=== PATIENT | female | born 1930 | race Caucasian/White ===

== ENCOUNTER → 2017-10-01 | Outpatient (CLI) | payer MEDICARE, OTHER, MEDICAID | END | disposition home or self-care (01) | LOC: ECHO 10:36 | DX: I08.1 Rheumatic disorders of both mitral and tricuspid valves (principal); I25.10 Atherosclerotic heart disease of native coronary artery without angina pectoris | CPT/HCPCS: 93306 ==

== ENCOUNTER 2018-02-14 11:09 | Emergency (ER) | payer MEDICARE, OTHER ==
[2018-02-14 12:16] LABS: ADD MAN DIFF? NO
[2018-02-14 12:18] LABS: BILIRUBIN,URINE NEGATIVE (NEG); CLARITY,URINE CLEAR; COLOR,URINE YELLOW; GLUCOSE,URINE NEGATIVE (NEG); NITRITE,URINE NEGATIVE (NEG); PH,URINE 6.5; PROTEIN,URINE 30 mg/dL (NEG-TRACE); RBC,URINE 0 /HPF (0-2); SQUAMOUS EPITHELIAL CELL,UR MANY /LPF
[2018-02-14 12:19] LABS: BACTERIA,URINE MODERATE /HPF (0-FEW)
[2018-02-14 12:29] LABS: BASO % 1 % (0-3); EOS # 0.4 x10^3/uL (0.0-0.7); EOS % 5 % (0-3); HEMATOCRIT 39.3 % (36.0-47.0); LYMPH # 1.1 x10^3/uL (1.0-4.8); LYMPH % 14 % (24-48); MEAN CORPUSCULAR HEMOGLOBIN 30 pg (25-35); MEAN CORPUSCULAR HGB CONC 33 g/dL (31-37); MEAN CORPUSCULAR VOLUME 89 fL (79-100); MONO # 0.8 x10^3/uL (0.0-1.1); MONO % 10 % (0-9); NEUT # 5.6 x10^3uL (1.8-7.7); NEUT % 71 % (31-73); PLATELET COUNT 390 x10^3/uL (140-400); RED BLOOD COUNT 4.41 x10^6/uL (3.50-5.40); RED CELL DISTRIBUTION WIDTH 14.3 % (11.5-14.5); WHITE BLOOD COUNT 7.9 x10^3/uL (4.0-11.0)
[2018-02-14 12:30] LABS: ANION GAP 3 (6-14); BLOOD UREA NITROGEN 14 mg/dL (7-20); BUN/CREATININE RATIO 18 (6-20); CALCIUM 8.7 mg/dL (8.5-10.1); CARBON DIOXIDE 32 mmol/L (21-32); CHLORIDE 103 mmol/L (98-107); CREATININE 0.8 mg/dL (0.6-1.0); GFR 68.2; GLUCOSE 131 mg/dL (70-99); POTASSIUM 3.8 mmol/L (3.5-5.1); SODIUM 138 mmol/L (136-145)
[2018-02-14 12:37] LABS: ALBUMIN 3.6 g/dL (3.4-5.0); ALBUMIN/GLOBULIN RATIO 0.9 (1.0-1.7); ALK PHOS 77 U/L (46-116); ALT (SGPT) 15 U/L (14-59); AST (SGOT) 14 U/L (15-37); INR 1.8 (0.8-1.1); MAGNESIUM 2.1 mg/dL (1.8-2.4); PARTIAL THROMBOPLASTIN TIME 43 SEC (24-38); PROTHROMBIN TIME PATIENT 20.1 SEC (11.7-14.0); TOTAL BILIRUBIN 0.5 mg/dL (0.2-1.0); TOTAL PROTEIN 7.4 g/dL (6.4-8.2)
[2018-02-14 12:38] LABS: LACTIC ACID 0.9 mmol/L (0.4-2.0)
[2018-02-14 12:40] LABS: TROPONINI < 0.017 ng/mL (0.000-0.055)
[2018-02-14 13:20] LABS: NT-PRO BNP 2094 pg/mL (0-449)
[2018-02-14 13:20] LABS: CKMB MASS 1.5 ng/mL (0.0-3.6); CREATINE KINASE 73 U/L (26-192)
== END 2018-02-14 14:47 | disposition home or self-care (01) ==
LOC: ER 11:09
DX: R40.4 Transient alteration of awareness (principal); N39.0 Urinary tract infection, site not specified; R60.0 Localized edema; I25.10 Atherosclerotic heart disease of native coronary artery without angina pectoris; K21.9 Gastro-esophageal reflux disease without esophagitis; E78.00 Pure hypercholesterolemia, unspecified; I10 Essential (primary) hypertension; Z90.710 Acquired absence of both cervix and uterus; Z79.01 Long term (current) use of anticoagulants
CPT/HCPCS: 36415; 70450; 71045; 80053; 81001; 82553; 83605; 83735; 83880; 84484; 85025; 85610; 85730; 87040; 87086; 93005; 96365; 99285; 99285-25; J0690

== ENCOUNTER 2018-09-18 18:33 | Inpatient (IN) | payer MEDICARE, OTHER ==
[~2018-09-18] VITALS: Ht 160 cm; Wt 73.6 kg
[~2018-09-18 18:33] MED LIST: ACET325T9 PO; AMLO5TAB10 PO; ATEN100T PO; ATOR20TA58 PO; BISA-42 PO; BISA5TAB6 PO; CALC200T3 PO; CALC300T5 PO; CIPR250T30 PO; DOCU100C28 PO; ENOX40DI SQ; ERGO500027 PO; ESOM40CA PO; FURO40TA4 PO; HYDR1TAB10 PO; LACT1CAP41 PO; LOSA100T14 PO; MAG1TAB.11 PO; MELO7.5T29 PO; NITR100C62 PO; OMEP20CA10 PO; OMEP40CA5 PO; OXYB5TAB7 PO; POLY17PO29 PO; SENN1TAB62 PO; SIMV40TA3 PO; SOLI10TA2 PO; TRAZ-118 PO; VALS320T2 PO; WARF-31 PO; WARF3TAB50 PO; WARF3TAB54 PO; WARF6TAB49 PO; ZOLP5TAB5 PO
[2018-09-18] MEDS ORDERED: IPRATRPIUM/ALBUTEROL 0.5/2.5MG 3 ML NEBU. NEB ONE (18:45)
--- NOTE | 2018-09-18 18:50 | EKG ---
[facility] [address] [place] [address] Test Date: 2018-09-18 Test Time: 18:44:25 Pat Name: YULISA JAMES Department: Room: Gender: F Disability Rater: : [id number] Requested By: WILLIAN GARCIA Order Number: [id number] Reading MD: Greg Allen Measurements Intervals [place] Rate: 81 P: 63 KS: 186 QRS: 56 QRSD: 100 T: 49 QT: 384 QTc: 452 Interpretive Statements SINUS RHYTHM Electronically Signed On 09-24-2018 17:34:44 SECURITY SCREENER by Greg Allen
[2018-09-18] MEDS ORDERED: LABETALOL 20 MG/4 ML DISP.SYRIN. IVP ONE (19:00)
[2018-09-18 19:03] LABS: BASO # 0.1 x10^3/uL (0.0-0.2); BASO % 1 % (0-3); EOS # 0.1 x10^3/uL (0.0-0.7); EOS % 1 % (0-3); HEMATOCRIT 42.6 % (36.0-47.0); HEMOGLOBIN 13.9 g/dL (12.0-15.5); LYMPH # 1.1 x10^3/uL (1.0-4.8); LYMPH % 17 % (24-48); MEAN CORPUSCULAR HEMOGLOBIN 29 pg (25-35); MEAN CORPUSCULAR HGB CONC 33 g/dL (31-37); MEAN CORPUSCULAR VOLUME 89 fL (79-100); MONO % 15 % (0-9); NEUT # 4.3 x10^3uL (1.8-7.7); NEUT % 66 % (31-73); PLATELET COUNT 423 x10^3/uL (140-400); WHITE BLOOD COUNT 6.5 x10^3/uL (4.0-11.0)
--- NOTE | 2018-09-18 19:08 | PHYS DOC ---
Past Medical History Past Medical History: CAD, CVA, GERD, High Cholesterol, Hypertension, Stroke, TIA Additional Past Medical Histor: CVA WITH RESIDUAL LEFT SIDED WEAKNESS Past Surgical History: Coronary Bypass Surgery, Hysterectomy, Other Additional Past Surgical Histo: BLADDER TIED UP, OPEN HEART SX, MITRAL VALVE REPLACEMENT Alcohol Use: Occasionally Drug Use: None Adult General Chief Complaint Chief Complaint: SHORTNESS OF BREATH HPI HPI Patient is an 88-year-old female who presents with complaint of shortness of breath with oxygen saturation noted to be 74% in the waiting room. Patient's daughter indicates that patient has had a moist sounding cough for the last few days. She states that this morning patient's oxygen saturation was noted to be 89% and later this afternoon she states that patient appeared to be having more labored breathing and oxygen saturation was down to 85%. Patient having difficulty providing additional history due to reported shortness of breath. Family is not aware if patient has had a fever. Review of Systems Review of Systems Constitutional: Denies fever or chills [] Respiratory: Positive cough and shortness of breath [] Cardiovascular: No additional information not addressed in HPI [] GI: Denies vomiting or diarrhea [] Integument: Denies rash or skin lesions [] All other systems were reviewed and found to be within normal limits, except as documented in this note. Current Medications Current Medications Current Medications Medications (Trade) Dose Ordered Sig/Moon Start Time Stop Time Status Last Admin Dose Admin Albuterol/ Ipratropium (Duoneb) 3 ml 1X ONCE 09/18/18 18:45 09/18/18 18:51 DC 09/18/18 18:57 3 ML Furosemide (Lasix) 40 mg 1X ONCE 09/18/18 20:45 09/18/18 20:46 DC 09/18/18 20:45 40 MG Labetalol HCl (Normodyne Iv Push) 20 mg 1X ONCE 09/18/18 19:00 09/18/18 19:01 DC 09/18/18 19:00 20 MG Allergies Allergies Allergies Coded Allergies Type Severity Reaction Last Updated Verified No Known Drug Allergies 08/11/15 No Physical Exam Physical Exam Constitutional: Well developed, well nourished, in mild respiratory distress. [] HENT: Normocephalic, atraumatic, bilateral external ears normal, oropharynx moist, no oral exudates, nose normal. [] Eyes: PERRLA, EOMI, conjunctiva normal, no discharge. [] Neck: Normal range of motion, no tenderness, supple. [] Cardiovascular: Regular rate and rhythm [] Lungs & Thorax: Slightly reduced breath sounds are noted bilaterally with coarse rails in the lung bases, left greater than right to auscultation [] Abdomen: Bowel sounds normal, soft, no tenderness. [] Skin: Warm, dry, no erythema, no rash. [] Extremities: No tenderness, no cyanosis, no clubbing, ROM intact. [] Neurologic: Alert and oriented X 3, normal motor function, normal sensory function, no focal deficits noted. [] Current Patient Data Vital Signs Vital Signs Date Time Temp Pulse Resp B/P (MAP) Pulse Ox O2 Delivery O2 Flow Rate FiO2 09/18/18 20:00 72 16 180/88 (118) 97 Room Air 09/18/18 18:37 99.4 99.4 Lab Values Laboratory Tests Test 09/18/18 18:48 09/18/18 19:05 09/18/18 19:10 White Blood Count 6.5 x10^3/uL (4.0-11.0) Red Blood Count 4.80 x10^6/uL (3.50-5.40) Hemoglobin 13.9 g/dL (12.0-15.5) Hematocrit 42.6 % (36.0-47.0) Mean Corpuscular Volume 89 fL (79-100) Mean Corpuscular Hemoglobin 29 pg (25-35) Mean Corpuscular Hemoglobin Concent 33 g/dL (31-37) Red Cell Distribution Width 15.0 % (11.5-14.5) H Platelet Count 423 x10^3/uL (140-400) H Neutrophils (%) (Auto) 66 % (31-73) Lymphocytes (%) (Auto) 17 % (24-48) L Monocytes (%) (Auto) 15 % (0-9) H Eosinophils (%) (Auto) 1 % (0-3) Basophils (%) (Auto) 1 % (0-3) Neutrophils # (Auto) 4.3 x10^3uL (1.8-7.7) Lymphocytes # (Auto) 1.1 x10^3/uL (1.0-4.8) Monocytes # (Auto) 1.0 x10^3/uL (0.0-1.1) Eosinophils # (Auto) 0.1 x10^3/uL (0.0-0.7) Basophils # (Auto) 0.1 x10^3/uL (0.0-0.2) Sodium Level 142 mmol/L (136-145) Potassium Level 3.8 mmol/L (3.5-5.1) Chloride Level 100 mmol/L (98-107) Carbon Dioxide Level 34 mmol/L (21-32) H Anion Gap 8 (6-14) Blood Urea Nitrogen 28 mg/dL (7-20) H Creatinine 1.2 mg/dL (0.6-1.0) H Estimated GFR (Cockcroft-Gault) 42.6 BUN/Creatinine Ratio 23 (6-20) H Glucose Level 155 mg/dL (70-99) H Lactic Acid Level 1.3 mmol/L (0.4-2.0) Calcium Level 9.6 mg/dL (8.5-10.1) Total Bilirubin 0.4 mg/dL (0.2-1.0) Aspartate Amino Transferase (AST) 15 U/L (15-37) Alanine Aminotransferase (ALT) 14 U/L (14-59) Alkaline Phosphatase 88 U/L (46-116) Troponin I Quantitative < 0.017 ng/mL (0.000-0.055) GJ-Inb-Q-Type Natriuretic Peptide 7921 pg/mL (0-449) H Total Protein 8.8 g/dL (6.4-8.2) H Albumin 4.1 g/dL (3.4-5.0) Albumin/Globulin Ratio 0.9 (1.0-1.7) L Influenza Type A Antigen Negative (NEGATIVE) Influenza Type B Antigen Negative (NEGATIVE) Urine Collection Type U cath Urine Color Yellow Urine Clarity Clear Urine pH 5.5 Urine Specific [place] 1.025 Urine Protein 100 mg/dL (NEG-TRACE) Urine Glucose (UA) Negative mg/dL (NEG) Urine Ketones (Stick) 15 mg/dL (NEG) Urine Blood Negative (NEG) Urine Nitrite Negative (NEG) Urine Bilirubin Small (NEG) Urine Urobilinogen Dipstick 1.0 mg/dL (0.2 mg/dL) Urine Leukocyte Esterase Negative (NEG) Urine RBC Occ /HPF (0-2) Urine WBC 0 /HPF (0-4) Urine Squamous Epithelial Cells Occ /LPF Urine Amorphous Sediment Present /HPF Urine Bacteria 0 /HPF (0-FEW) Urine Hyaline Casts Moderate /HPF Urine Mucus Mod /LPF Laboratory Tests 09/18/18 18:48 Laboratory Tests 09/18/18 18:48 EKG EKG [] Interpretation Time: EKG demonstrates normal sinus rhythm with rate of 81. Radiology/Procedures Radiology/Procedures [] Course & Med Decision Making Course & Med Decision Making Pertinent Labs and Imaging studies reviewed. (See chart for details) [] Dragon Disclaimer Dragon Disclaimer This electronic medical record was generated, in whole or in part, using a voice recognition dictation system. Departure Departure Impression: Primary Impression: Hypertensive urgency Additional Impressions: CHF (congestive heart failure) Hypoxia Disposition: ADMITTED INPATIENT Admitting Physician: Kristie Ledbetter Condition: IMPROVED Referrals: MARIN ARCINIEGA MD (PCP) Problem Qualifiers Additional Impressions: CHF (congestive heart failure) Heart failure type: unspecified Heart failure chronicity: unspecified Qualified Codes: I50.9 - Heart failure, unspecified WILLIAN GARCIA Jr. DO Sep 18, 2018 19:08
[2018-09-18 19:13] LABS: CALCIUM 9.6 mg/dL (8.5-10.1); CREATININE 1.2 mg/dL (0.6-1.0); GFR 42.6; POTASSIUM 3.8 mmol/L (3.5-5.1)
[2018-09-18 19:19] LABS: ALBUMIN 4.1 g/dL (3.4-5.0); ALBUMIN/GLOBULIN RATIO 0.9 (1.0-1.7); TOTAL BILIRUBIN 0.4 mg/dL (0.2-1.0); TOTAL PROTEIN 8.8 g/dL (6.4-8.2)
[2018-09-18 19:24] LABS: BILIRUBIN,URINE SMALL (NEG); CLARITY,URINE CLEAR; COLOR,URINE YELLOW; NITRITE,URINE NEGATIVE (NEG); PH,URINE 5.5; PROTEIN,URINE 100 mg/dL (NEG-TRACE)
[2018-09-18 19:30] LABS: INFLUENZA A PATIENT NEGATIVE (NEGATIVE); INFLUENZA B PATIENT NEGATIVE (NEGATIVE)
[2018-09-18 19:32] LABS: AMORPHOUS SEDIMENT,UR PRESENT /HPF; BACTERIA,URINE 0 /HPF (0-FEW); HYALINE CASTS, URINE MODERATE /HPF; RBC,URINE OCC /HPF (0-2); SQUAMOUS EPITHELIAL CELL,UR OCC /LPF; WBC,URINE 0 /HPF (0-4)
[2018-09-18] MEDS ORDERED: FUROSEMIDE 40 MG/4 ML VIAL. IVP ONE (20:45)
--- NOTE | 2018-09-18 21:02 | PDOC1 ---
History and Physical Date of Admission Date of Admission DATE: 09/18/18 TIME: 21:00 Identification/Chief Complaint Chief Complaint short of breath Source Source: Caregiver, Chart review, Patient History of Present Illness History of Present Illness Ms. Martins is an 88-year-old female admit from ER with acute shortness of breath, respiratory distress and labored breathing over a few hours.. Was brought in hypoxic, and her Sa02 74% in the waiting room. and dropped before intervnetion. IV lasix givne, good improvement, marked hypertension on arrival, dropped markedly with IV labetalol. She is s/p CVA but does pretty well, her daughter assists with histoyr. . Patient's daughter indicates that patient has had a moist sounding cough for the last few days. She has been recently diagnosed with COPD by a CXR by the primary care at her [facility], no prior PFT. She has no chest pain, worse dyspnea and some cough, more moist in sound today. Past Medical History Cardiovascular: AFIB, HTN, Hyperlipidemia, Aortic stenosis Pulmonary: Bronchitis CENTRAL NERVOUS SYSTEM: CVA GI: GERD Musculoskeletal: Osteoarthritis Past Surgical History Past Surgical History: CABG, Other Family History Family History: Coronary Artery Disease, Hypertension Social History Smoke: No (second hand from for years) ALCOHOL: none Drugs: None Current Problem List Problem List Problems Medical Problems: (1) CHF (congestive heart failure) Status: Acute (2) Hypertensive urgency Status: Acute (3) Hypoxia Status: Acute Current Medications Current Medications Current Medications Albuterol/ Ipratropium (Duoneb) 3 ml 1X ONCE NEB Last administered on at 18:57; Start 09/18/18 at 18:45; Stop 09/18/18 at 18:51; Status DC Labetalol HCl (Normodyne Iv Push) 20 mg 1X ONCE IVP Last administered on at 19:00; Start 09/18/18 at 19:00; Stop 09/18/18 at 19:01; Status DC Furosemide (Lasix) 40 mg 1X ONCE IVP Last administered on 09/18/18at 20:45; Start 09/18/18 at 20:45; Stop 09/18/18 at 20:46; Status DC Active Scripts Active Reported Losartan Potassium 100 Mg Tablet 100 Mg PO DAILY Tums (Calcium Carbonate) 200 Mg Tab.chew 500 Mg PO BIDWMEALS Tums (Calcium Carbonate) 300 Mg Tab.chew 300 Mg PO Miralax (Polyethylene Glycol 3350) 17 Gm Powd.pack 1 Packet PO DAILY Senna Plus Tablet (Sennosides/Docusate Sodium) 1 Each Tablet 2 Each PO QHS Women's Laxative (Bisacodyl) 5 Mg Tablet 4 Tab PO UD Dulcolax (Bisacodyl) 5 Mg Tablet.dr 5 Mg PO PRN DAILY PRN Dulcolax (Bisacodyl) 5 Mg Tablet.dr 4 Tab PO ONCE Mintox Plus Tablet Chewable (Mag Hydrox/Al Hydrox/Simeth) 1 Each Tab.chew 2 Each PO Q3HRS PRN Docusate Sodium 100 Mg Capsule 1 Cap PO BID PRN Tylenol (Acetaminophen) 325 Mg Tablet 650 Mg PO Q6HRS PRN Atorvastatin Calcium 20 Mg Tablet 1 Tab PO HS Acidophilus-Pectin Capsule (Lactobacillus Acidophilus/Pect) 1 Each Capsule 1 Each PO BIDWMEALS Omeprazole 40 Mg Capsule.dr 1 Cap PO QHS Vitamin D2 (Ergocalciferol (Vitamin D2)) 50,000 Unit Capsule 1 Cap PO QSA Zolpidem Tartrate 5 Mg Tablet 5 Mg PO PRN QHS PRN Simvastatin 40 Mg Tablet 1 Tab PO QHS Oxybutynin Chloride 5 Mg Tablet 1 Tab PO BID Omeprazole 20 Mg Capsule.dr 1 Cap PO HS Warfarin Sodium 5 Mg Tablet 1 Tab PO DAILY Furosemide 40 Mg Tablet 40 Mg PO PRN DAILY PRN Trazodone Hcl 50 Mg Tablet 50 Mg PO HS Amlodipine Besylate 5 Mg Tablet 5 Mg PO DAILY Meloxicam 7.5 Mg Tablet 7.5 Mg PO DAILY Atenolol 100 Mg Tablet 100 Mg PO DAILY Diovan (Valsartan) 320 Mg Tablet 320 Mg PO DAILY Allergies Allergies: Coded Allergies: No Known Drug Allergies (Unverified , 08/11/15) ROS General: YES: Fatigue PSYCHOLOGICAL ROS: No: Anxiety, Behavioral Disorder, Concentration difficultie , Decreased libido, Depression, Disorientation, Hallucinations, Hostility, Irritablity, Memory difficulties, Mood Swings, Obsessive thoughts, Physical abuse, Sexual abuse, Sleep disturbances, Suicidal ideation, Other Eyes: No Blurry vision, No Decreased vision, No Double vision, No Dry eyes, No Excessive tearing, No Eye Pain, No Itchy Eyes, No Loss of vision, No Photophobia , No Scotomata, No Uses contacts, No Uses glasses, No Other HEENT: No: Heacaches, Visual Changes, Hearing change, Nasal congestion, Nasal discharge, Oral lesions, Sinus pain, Sore Throat, Epistaxis, Sneezing, Snoring, Tinnitus, Vertigo, Vocal changes, Other Respiratory: YES: Cough, Shortness of breath, SOB with excertion, Tachypnea Cardiovascular: No Chest Pain, No Palpitations, No Orthopnea, No Paroxysmal Noc. Dyspnea, No Edema, No Lt Headedness, No Other Gastrointestinal: No Nausea, No Vomiting, No Abdominal Pain, No Diarrhea, No Constipation, No Melena, No Hematochezia, No Other Genitourinary: No Dysuria, No Frequency, No Incontinence, No Hematuria, No Retention, No Discharge, No Urgency, No Pain, No Flank Pain, No Other, No , No , No , No , No , No , No Musculoskeletal: Yes Joint Stiffness, Yes Muscular Weakness; No Gait Disturbance, No Joint Pain, No Joint Swelling, No Muscle Pain, No Pain In:, No Swelling In:, No Other Neurological: No Behavorial Changes, No Bowel/Bladder ControlChng, No Confusion , No Dizziness, No Gait Disturbance, No Headaches, No Impaired Coord/balance, No Memory Loss, No Numbness/Tingling, No Seizures, No Speech Problems, No Tremors, No Visual Changes, No Weakness, No Other Skin: Yes Dry Skin; No Eczema, No Hair Changes, No Lumps, No Mole Changes, No Mottling, No Nail Changes, No Pruritus, No Rash, No Skin Lesion Changes, No Other, No Acne Physical Exam General: Alert, Oriented X3, Cooperative, mild distress (better) HEENT: Mucous membr. moist/pink Lungs: Other (very limited volume, dull bases, some rales) Heart: S1S2, RRR, no gallops, no murmurs Abdomen: Normal bowel sounds, Soft Extremities: No clubbing Skin: No rashes Neuro: Normal speech (slow speech), Normal tone, Sensation intact Psych/Mental Status: Mood NL Vitals Vitals Vital Signs Date Time Temp Pulse Resp B/P (MAP) Pulse Ox O2 Delivery O2 Flow Rate FiO2 09/18/18 20:00 72 16 180/88 (118) 97 Room Air 09/18/18 18:37 99.4 99.4 Labs Labs Laboratory Tests Test 09/18/18 18:48 09/18/18 19:05 09/18/18 19:10 White Blood Count 6.5 x10^3/uL (4.0-11.0) Red Blood Count 4.80 x10^6/uL (3.50-5.40) Hemoglobin 13.9 g/dL (12.0-15.5) Hematocrit 42.6 % (36.0-47.0) Mean Corpuscular Volume 89 fL (79-100) Mean Corpuscular Hemoglobin 29 pg (25-35) Mean Corpuscular Hemoglobin Concent 33 g/dL (31-37) Red Cell Distribution Width 15.0 % (11.5-14.5) Platelet Count 423 x10^3/uL (140-400) Neutrophils (%) (Auto) 66 % (31-73) Lymphocytes (%) (Auto) 17 % (24-48) Monocytes (%) (Auto) 15 % (0-9) Eosinophils (%) (Auto) 1 % (0-3) Basophils (%) (Auto) 1 % (0-3) Neutrophils # (Auto) 4.3 x10^3uL (1.8-7.7) Lymphocytes # (Auto) 1.1 x10^3/uL (1.0-4.8) Monocytes # (Auto) 1.0 x10^3/uL (0.0-1.1) Eosinophils # (Auto) 0.1 x10^3/uL (0.0-0.7) Basophils # (Auto) 0.1 x10^3/uL (0.0-0.2) D-Dimer (Marie) 0.57 ug/mlFEU (0.00-0.50) Sodium Level 142 mmol/L (136-145) Potassium Level 3.8 mmol/L (3.5-5.1) Chloride Level 100 mmol/L (98-107) Carbon Dioxide Level 34 mmol/L (21-32) Anion Gap 8 (6-14) Blood Urea Nitrogen 28 mg/dL (7-20) Creatinine 1.2 mg/dL (0.6-1.0) Estimated GFR (Cockcroft-Gault) 42.6 BUN/Creatinine Ratio 23 (6-20) Glucose Level 155 mg/dL (70-99) Lactic Acid Level 1.3 mmol/L (0.4-2.0) Calcium Level 9.6 mg/dL (8.5-10.1) Total Bilirubin 0.4 mg/dL (0.2-1.0) Aspartate Amino Transf (AST/SGOT) 15 U/L (15-37) Alanine Aminotransferase (ALT/SGPT) 14 U/L (14-59) Alkaline Phosphatase 88 U/L (46-116) Troponin I Quantitative < 0.017 ng/mL (0.000-0.055) YY-Udf-N-Type Natriuretic Peptide 7921 pg/mL (0-449) Total Protein 8.8 g/dL (6.4-8.2) Albumin 4.1 g/dL (3.4-5.0) Albumin/Globulin Ratio 0.9 (1.0-1.7) Influenza Type A Antigen Negative (NEGATIVE) Influenza Type B Antigen Negative (NEGATIVE) Urine Collection Type U cath Urine Color Yellow Urine Clarity Clear Urine pH 5.5 Urine Specific [place] 1.025 Urine Protein 100 mg/dL (NEG-TRACE) Urine Glucose (UA) Negative mg/dL (NEG) Urine Ketones (Stick) 15 mg/dL (NEG) Urine Blood Negative (NEG) Urine Nitrite Negative (NEG) Urine Bilirubin Small (NEG) Urine Urobilinogen Dipstick 1.0 mg/dL (0.2 mg/dL) Urine Leukocyte Esterase Negative (NEG) Urine RBC Occ /HPF (0-2) Urine WBC 0 /HPF (0-4) Urine Squamous Epithelial Cells Occ /LPF Urine Amorphous Sediment Present /HPF Urine Bacteria 0 /HPF (0-FEW) Urine Hyaline Casts Moderate /HPF Urine Mucus Mod /LPF Laboratory Tests Test 09/18/18 18:48 09/18/18 19:05 09/18/18 19:10 White Blood Count 6.5 x10^3/uL (4.0-11.0) Red Blood Count 4.80 x10^6/uL (3.50-5.40) Hemoglobin 13.9 g/dL (12.0-15.5) Hematocrit 42.6 % (36.0-47.0) Mean Corpuscular Volume 89 fL (79-100) Mean Corpuscular Hemoglobin 29 pg (25-35) Mean Corpuscular Hemoglobin Concent 33 g/dL (31-37) Red Cell Distribution Width 15.0 % (11.5-14.5) Platelet Count 423 x10^3/uL (140-400) Neutrophils (%) (Auto) 66 % (31-73) Lymphocytes (%) (Auto) 17 % (24-48) Monocytes (%) (Auto) 15 % (0-9) Eosinophils (%) (Auto) 1 % (0-3) Basophils (%) (Auto) 1 % (0-3) Neutrophils # (Auto) 4.3 x10^3uL (1.8-7.7) Lymphocytes # (Auto) 1.1 x10^3/uL (1.0-4.8) Monocytes # (Auto) 1.0 x10^3/uL (0.0-1.1) Eosinophils # (Auto) 0.1 x10^3/uL (0.0-0.7) Basophils # (Auto) 0.1 x10^3/uL (0.0-0.2) D-Dimer (Marie) 0.57 ug/mlFEU (0.00-0.50) Sodium Level 142 mmol/L (136-145) Potassium Level 3.8 mmol/L (3.5-5.1) Chloride Level 100 mmol/L (98-107) Carbon Dioxide Level 34 mmol/L (21-32) Anion Gap 8 (6-14) Blood Urea Nitrogen 28 mg/dL (7-20) Creatinine 1.2 mg/dL (0.6-1.0) Estimated GFR (Cockcroft-Gault) 42.6 BUN/Creatinine Ratio 23 (6-20) Glucose Level 155 mg/dL (70-99) Lactic Acid Level 1.3 mmol/L (0.4-2.0) Calcium Level 9.6 mg/dL (8.5-10.1) Total Bilirubin 0.4 mg/dL (0.2-1.0) Aspartate Amino Transf (AST/SGOT) 15 U/L (15-37) Alanine Aminotransferase (ALT/SGPT) 14 U/L (14-59) Alkaline Phosphatase 88 U/L (46-116) Troponin I Quantitative < 0.017 ng/mL (0.000-0.055) NR-Mqz-P-Type Natriuretic Peptide 7921 pg/mL (0-449) Total Protein 8.8 g/dL (6.4-8.2) Albumin 4.1 g/dL (3.4-5.0) Albumin/Globulin Ratio 0.9 (1.0-1.7) Influenza Type A Antigen Negative (NEGATIVE) Influenza Type B Antigen Negative (NEGATIVE) Urine Collection Type U cath Urine Color Yellow Urine Clarity Clear Urine pH 5.5 Urine Specific [place] 1.025 Urine Protein 100 mg/dL (NEG-TRACE) Urine Glucose (UA) Negative mg/dL (NEG) Urine Ketones (Stick) 15 mg/dL (NEG) Urine Blood Negative (NEG) Urine Nitrite Negative (NEG) Urine Bilirubin Small (NEG) Urine Urobilinogen Dipstick 1.0 mg/dL (0.2 mg/dL) Urine Leukocyte Esterase Negative (NEG) Urine RBC Occ /HPF (0-2) Urine WBC 0 /HPF (0-4) Urine Squamous Epithelial Cells Occ /LPF Urine Amorphous Sediment Present /HPF Urine Bacteria 0 /HPF (0-FEW) Urine Hyaline Casts Moderate /HPF Urine Mucus Mod /LPF VTE Prophylaxis Ordered VTE Prophylaxis Devices: Yes VTE Pharmacological Prophylaxi: Yes Assessment/Plan Assessment/Plan acute hypoxic respiratory failure CHF, acute diastolic failure, better with IV lasix, will continue accelerated hypertension hypercarbia, poor volume breaths, likely COPD, nebs prior CVA, some residual weakess, some early vascular dementia SONU HERRERA MD Sep 18, 2018 21:02
[2018-09-18] MEDS ORDERED: MAG HYDROX/ALUMINUM HYD/SIMETH 30 ML ORAL.SUSP PO PRN (21:15)
[2018-09-18] MEDS ORDERED: ACETAMINOPHEN 325 MG TABLET. PO PRN (21:15)
[2018-09-18] MEDS ORDERED: ZOLPIDEM 5 MG TABLET. PO PRN (21:15)
[2018-09-18] MEDS ORDERED: DOCUSATE SODIUM 100 MG CAPSULE. PO PRN (21:15)
[2018-09-18] MEDS ORDERED: BISACODYL 5 MG TABLET.DR. PO PRN (21:15)
[2018-09-18 21:16] LABS: PROTHROMBIN TIME PATIENT 14.4 SEC (11.7-14.0)
[2018-09-18] MEDS: OXYBUTYNIN CHLORIDE 5 MG TABLET PO SCH (22:00)
[2018-09-18] MEDS: ATORVASTATIN CALCIUM 20 MG TABLET PO SCH (22:00)
[2018-09-18] MEDS: PANTOPRAZOLE 40 MG TABLET.DR. PO SCH (22:00)
[2018-09-18 22:30] VITALS: BP 205/88
--- NOTE | 2018-09-18 22:30 | NUR ---
Admit from ED to Room 262 via [facility]. Transferred from [facility] to bed with 3 person assist. Patient is Alert to self. Calm. Cooperative. Daughter at bedside. Patient lives at [facility]. Orientated to POC and call light. Resting in bed with call light at hand.
[2018-09-18] MEDS: LABETALOL 20 MG/4 ML DISP.SYRIN. IVP PRN (23:42)
[2018-09-19 00:43] LABS: BASE EXCESS ABG 3 mmol/L (-3-3); HCO3 ABG 31 mmol/L (21-28); PO2 ABG 81 mmHg (65-108); SAT O2 ABG 95 % (92-99)
[2018-09-19] MEDS: IPRATRPIUM/ALBUTEROL 0.5/2.5MG 3 ML NEBU. NEB SCH ×6 (00:43→22:00)
[2018-09-19] MEDS: IPRATRPIUM/ALBUTEROL 0.5/2.5MG 3 ML NEBU. NEB ONE (00:45)
--- NOTE | 2018-09-19 01:13 | RAD ---
Examination: Single frontal view the chest. HISTORY: History of shortness of breath COMPARISON: Same day exam 6:45 PM FINDINGS: The cardiomediastinal silhouette grossly appears unremarkable. Median sternotomy wires identified. Prosthetic heart valve identified. A tubing projects over the right hemithorax. There is no acute infiltrate or visualized pneumothorax. IMPRESSION: No acute cardiopulmonary findings. Electronically signed by: Aiden Landaverde MD (09/19/2018 1:09 AM) [facility]
[2018-09-19] MEDS ORDERED: IPRATRPIUM/ALBUTEROL 0.5/2.5MG 3 ML NEBU. NEB ONE (01:15)
[2018-09-19] MEDS ORDERED: NITROGLYCERIN OINT 1 GM PACKET. TP ONE (01:15)
--- NOTE | 2018-09-19 01:15 | RAD ---
EXAM: CHEST 1 VIEW History: Shortness of breath, wheezing COMPARISON: 02/22/2018 TECHNIQUE: Single portable radiograph of the chest FINDINGS: The cardiac silhouette is unremarkable. The lungs are clear bilaterally. The costophrenic sulci are clear and well demarcated. IMPRESSION: No radiographic evidence of an acute cardiopulmonary process. Electronically signed by: Aiden Landaverde MD (09/19/2018 1:10 AM) [facility]
[2018-09-19 01:27] LABS: FIO2 ABG 32; PCO2 ABG 64 mmHg (35-46)
--- NOTE | 2018-09-19 01:30 | NUR ---
Called to a rapid response for c/o not being able to breathe. Patient is sitting up on side of bed and using accessory muscles to breathe. Minimal air movement in all lobes now. O2 on at 3LNC. Patient appears to be very anxious and is slightly clammy to touch. RT called to do a breathing treatment. VSS but patients b/p is >200/80s. Floor nurse talked with Dr. George and Dr. Ledbetter and Nursing Message Broker Developer, Steffany, talked with ED doctor Jose who came up to see patient. Orders were received from all 3 doctors and patient was talked to about the need for the Bipap machine. Daughter is on her way in to sit with patient so she will wear the Bipap mask. Patient is to stay on the unit at this time.
--- NOTE | 2018-09-19 03:21 | NUR ---
00:20 Patient became restless, clammy, nauseated, and increase short of air. Patient reports "I need help, I can't breath". Lungs very diminished. Crackles. Called rapid response. [employer] Radio Operator, RT, and COMMUNICATION SKILLS INSTRUCTOR reported to patient's room. Orders were placed for ABG and Duoneb. Spoke to Dr George and reported ABG results, VS, mental status and decrease lung sounds with restlessness. Dr George order BiPap with settings 20/6 with rate of 20. Reported rapid response to Dr Ledbetter as well. Dr Garcia from ED also came to assist with rapid response. Patient anxious about wearing BiPap mask. Daughter called in to sit at bedside to help keep mask on. Patient was also given Ativan IV to help tolerate BiPap. Patient currently tolerating BiPap. Daughter remains at bedside. Call light at hand.
[2018-09-19 03:40] VITALS: BP 133/62
[2018-09-19 05:28] LABS: BASO % 1 % (0-3); EOS % 0 % (0-3); HEMATOCRIT 39.7 % (36.0-47.0); HEMOGLOBIN 13.1 g/dL (12.0-15.5); LYMPH # 0.6 x10^3/uL (1.0-4.8); LYMPH % 12 % (24-48); MEAN CORPUSCULAR HEMOGLOBIN 29 pg (25-35); MEAN CORPUSCULAR HGB CONC 33 g/dL (31-37); MEAN CORPUSCULAR VOLUME 88 fL (79-100); MONO # 0.7 x10^3/uL (0.0-1.1); MONO % 14 % (0-9); NEUT # 3.6 x10^3uL (1.8-7.7); NEUT % 74 % (31-73); PLATELET COUNT 329 x10^3/uL (140-400); RED CELL DISTRIBUTION WIDTH 14.7 % (11.5-14.5); WHITE BLOOD COUNT 4.8 x10^3/uL (4.0-11.0)
[2018-09-19 05:47] LABS: ALBUMIN 3.7 g/dL (3.4-5.0); ALBUMIN/GLOBULIN RATIO 0.9 (1.0-1.7); CALCIUM 9.2 mg/dL (8.5-10.1); CREATININE 1.1 mg/dL (0.6-1.0); GFR 47.1; POTASSIUM 3.3 mmol/L (3.5-5.1); TOTAL BILIRUBIN 0.3 mg/dL (0.2-1.0); TOTAL PROTEIN 7.7 g/dL (6.4-8.2)
[2018-09-19] MEDS ORDERED: POTASSIUM CHLORIDE 20 MEQ TABLET.ER. PO ONE (07:00)
[2018-09-19 07:33] VITALS: BP 174/69
[2018-09-19] MEDS: BUDESONIDE 0.5 MG/2 ML NEBU. NEB SCH ×2 (07:55→20:18)
[2018-09-19 08:11] LABS: BASE EXCESS ABG 2 mmol/L (-3-3); HCO3 ABG 29 mmol/L (21-28); PCO2 ABG 53 mmHg (35-46); PO2 ABG 91 mmHg (65-108); SAT O2 ABG 97 % (92-99)
[2018-09-19 08:12] LABS: FIO2 ABG 32
[2018-09-19] MEDS ORDERED: ATENOLOL 50 MG TABLET. PO SCH (09:00)
[2018-09-19] MEDS: POLYETHYLENE GLYCOL 3350 17 GM PACKET. PO SCH (09:00)
[2018-09-19] MEDS ORDERED: FUROSEMIDE 40 MG/4 ML VIAL. IVP SCH (09:00)
[2018-09-19 09:10] LABS: CHOLESTEROL/HDL RATIO 3.6
[2018-09-19] MEDS: LOSARTAN POTASSIUM 50 MG TABLET. PO SCH (09:54)
[2018-09-19] MEDS: OXYBUTYNIN CHLORIDE 5 MG TABLET PO SCH ×2 (09:54→21:39)
[2018-09-19] MEDS: LACTOBACILLUS RHAMNOSUS GG 1 CAPSULE. PO SCH ×2 (09:55→17:09)
[2018-09-19] MEDS: CALCIUM CARBONATE 500 MG TAB.CHEW PO SCH ×2 (09:55→17:09)
[2018-09-19] MEDS: amLODIPine BESYLATE 5 MG TABLET PO SCH (09:56)
--- NOTE | 2018-09-19 10:28 | PDOC ---
PROGRESS NOTES Chief Complaint Chief Complaint acute hypoxic respiratory failure COPD with acute exacerbation, steriods, nebs, abx CHF, acute diastolic failure, better with IV lasix, will continue accelerated hypertension hypercarbia, poor volume breaths, likely COPD, nebs prior CVA, some residual weakness, some early vascular dementia History of Present Illness History of Present Illness feels improved very weak no cough no sputum some wheeze today Vitals Vitals Vital Signs Date Time Temp Pulse Resp B/P (MAP) Pulse Ox O2 Delivery O2 Flow Rate FiO2 09/19/18 09:56 81 174/69 09/19/18 07:51 96 Nasal Cannula 3.0 09/19/18 07:33 99.6 18 99.6 Physical Exam General: Alert, Oriented X3, Cooperative, No acute distress Heart: Regular rate, No murmurs Lungs: Wheezing (right upper), Other (limited volume) Abdomen: Normal bowel sounds, Soft Extremities: No clubbing Skin: No rashes Labs LABS Laboratory Tests Test 09/18/18 18:45 09/18/18 18:48 09/18/18 19:05 09/18/18 19:10 Prothrombin Time 14.4 SEC (11.7-14.0) Prothromb Time International Ratio 1.2 (0.8-1.1) White Blood Count 6.5 x10^3/uL (4.0-11.0) Red Blood Count 4.80 x10^6/uL (3.50-5.40) Hemoglobin 13.9 g/dL (12.0-15.5) Hematocrit 42.6 % (36.0-47.0) Mean Corpuscular Volume 89 fL (79-100) Mean Corpuscular Hemoglobin 29 pg (25-35) Mean Corpuscular Hemoglobin Concent 33 g/dL (31-37) Red Cell Distribution Width 15.0 % (11.5-14.5) Platelet Count 423 x10^3/uL (140-400) Neutrophils (%) (Auto) 66 % (31-73) Lymphocytes (%) (Auto) 17 % (24-48) Monocytes (%) (Auto) 15 % (0-9) Eosinophils (%) (Auto) 1 % (0-3) Basophils (%) (Auto) 1 % (0-3) Neutrophils # (Auto) 4.3 x10^3uL (1.8-7.7) Lymphocytes # (Auto) 1.1 x10^3/uL (1.0-4.8) Monocytes # (Auto) 1.0 x10^3/uL (0.0-1.1) Eosinophils # (Auto) 0.1 x10^3/uL (0.0-0.7) Basophils # (Auto) 0.1 x10^3/uL (0.0-0.2) D-Dimer (Marie) 0.57 ug/mlFEU (0.00-0.50) Sodium Level 142 mmol/L (136-145) Potassium Level 3.8 mmol/L (3.5-5.1) Chloride Level 100 mmol/L (98-107) Carbon Dioxide Level 34 mmol/L (21-32) Anion Gap 8 (6-14) Blood Urea Nitrogen 28 mg/dL (7-20) Creatinine 1.2 mg/dL (0.6-1.0) Estimated GFR (Cockcroft-Gault) 42.6 BUN/Creatinine Ratio 23 (6-20) Glucose Level 155 mg/dL (70-99) Lactic Acid Level 1.3 mmol/L (0.4-2.0) Calcium Level 9.6 mg/dL (8.5-10.1) Total Bilirubin 0.4 mg/dL (0.2-1.0) Aspartate Amino Transf (AST/SGOT) 15 U/L (15-37) Alanine Aminotransferase (ALT/SGPT) 14 U/L (14-59) Alkaline Phosphatase 88 U/L (46-116) Troponin I Quantitative < 0.017 ng/mL (0.000-0.055) JO-Ify-S-Type Natriuretic Peptide 7921 pg/mL (0-449) Total Protein 8.8 g/dL (6.4-8.2) Albumin 4.1 g/dL (3.4-5.0) Albumin/Globulin Ratio 0.9 (1.0-1.7) Influenza Type A Antigen Negative (NEGATIVE) Influenza Type B Antigen Negative (NEGATIVE) Urine Collection Type U cath Urine Color Yellow Urine Clarity Clear Urine pH 5.5 Urine Specific Lorida 1.025 Urine Protein 100 mg/dL (NEG-TRACE) Urine Glucose (UA) Negative mg/dL (NEG) Urine Ketones (Stick) 15 mg/dL (NEG) Urine Blood Negative (NEG) Urine Nitrite Negative (NEG) Urine Bilirubin Small (NEG) Urine Urobilinogen Dipstick 1.0 mg/dL (0.2 mg/dL) Urine Leukocyte Esterase Negative (NEG) Urine RBC Occ /HPF (0-2) Urine WBC 0 /HPF (0-4) Urine Squamous Epithelial Cells Occ /LPF Urine Amorphous Sediment Present /HPF Urine Bacteria 0 /HPF (0-FEW) Urine Hyaline Casts Moderate /HPF Urine Mucus Mod /LPF Test 09/19/18 00:21 09/19/18 00:33 09/19/18 05:00 09/19/18 07:50 O2 Saturation 95 % (92-99) 97 % (92-99) Arterial Blood pH 7.31 (7.35-7.45) 7.35 (7.35-7.45) Arterial Blood pCO2 at Patient Temp 64 mmHg (35-46) 53 mmHg (35-46) Arterial Blood pO2 at Patient Temp 81 mmHg (65-108) 91 mmHg (65-108) Arterial Blood HCO3 31 mmol/L (21-28) 29 mmol/L (21-28) Arterial Blood Base Excess 3 mmol/L (-3-3) 2 mmol/L (-3-3) FiO2 32 32 Glucose (Fingerstick) 149 mg/dL (70-99) White Blood Count 4.8 x10^3/uL (4.0-11.0) Red Blood Count 4.50 x10^6/uL (3.50-5.40) Hemoglobin 13.1 g/dL (12.0-15.5) Hematocrit 39.7 % (36.0-47.0) Mean Corpuscular Volume 88 fL (79-100) Mean Corpuscular Hemoglobin 29 pg (25-35) Mean Corpuscular Hemoglobin Concent 33 g/dL (31-37) Red Cell Distribution Width 14.7 % (11.5-14.5) Platelet Count 329 x10^3/uL (140-400) Neutrophils (%) (Auto) 74 % (31-73) Lymphocytes (%) (Auto) 12 % (24-48) Monocytes (%) (Auto) 14 % (0-9) Eosinophils (%) (Auto) 0 % (0-3) Basophils (%) (Auto) 1 % (0-3) Neutrophils # (Auto) 3.6 x10^3uL (1.8-7.7) Lymphocytes # (Auto) 0.6 x10^3/uL (1.0-4.8) Monocytes # (Auto) 0.7 x10^3/uL (0.0-1.1) Eosinophils # (Auto) 0.0 x10^3/uL (0.0-0.7) Basophils # (Auto) 0.0 x10^3/uL (0.0-0.2) Sodium Level 143 mmol/L (136-145) Potassium Level 3.3 mmol/L (3.5-5.1) Chloride Level 100 mmol/L (98-107) Carbon Dioxide Level 32 mmol/L (21-32) Anion Gap 11 (6-14) Blood Urea Nitrogen 29 mg/dL (7-20) Creatinine 1.1 mg/dL (0.6-1.0) Estimated GFR (Cockcroft-Gault) 47.1 BUN/Creatinine Ratio 26 (6-20) Glucose Level 145 mg/dL (70-99) Calcium Level 9.2 mg/dL (8.5-10.1) Magnesium Level 2.0 mg/dL (1.8-2.4) Total Bilirubin 0.3 mg/dL (0.2-1.0) Aspartate Amino Transf (AST/SGOT) 14 U/L (15-37) Alanine Aminotransferase (ALT/SGPT) 13 U/L (14-59) Alkaline Phosphatase 73 U/L (46-116) Total Protein 7.7 g/dL (6.4-8.2) Albumin 3.7 g/dL (3.4-5.0) Albumin/Globulin Ratio 0.9 (1.0-1.7) Triglycerides Level 94 mg/dL (0-150) Cholesterol Level 173 mg/dL (0-200) LDL Cholesterol, Calculated 106 mg/dL (0-100) VLDL Cholesterol, Calculated 19 mg/dL (0-40) Non-HDL Cholesterol Calculated 125 mg/dL (0-129) HDL Cholesterol 48 mg/dL (40-60) Cholesterol/HDL Ratio 3.6 Thyroid Stimulating Hormone (TSH) 0.736 uIU/mL (0.358-3.74) Assessment and Plan Assessmemt and Plan Problems Medical Problems: (1) CHF (congestive heart failure) Status: Acute (2) Hypertensive urgency Status: Acute (3) Hypoxia Status: Acute Comment Review of Relevant I have reviewed the following items junie (where applicable) has been applied. Labs Laboratory Tests Test 09/18/18 18:45 09/18/18 18:48 09/18/18 19:05 09/18/18 19:10 Prothrombin Time 14.4 SEC (11.7-14.0) Prothromb Time International Ratio 1.2 (0.8-1.1) White Blood Count 6.5 x10^3/uL (4.0-11.0) Red Blood Count 4.80 x10^6/uL (3.50-5.40) Hemoglobin 13.9 g/dL (12.0-15.5) Hematocrit 42.6 % (36.0-47.0) Mean Corpuscular Volume 89 fL (79-100) Mean Corpuscular Hemoglobin 29 pg (25-35) Mean Corpuscular Hemoglobin Concent 33 g/dL (31-37) Red Cell Distribution Width 15.0 % (11.5-14.5) Platelet Count 423 x10^3/uL (140-400) Neutrophils (%) (Auto) 66 % (31-73) Lymphocytes (%) (Auto) 17 % (24-48) Monocytes (%) (Auto) 15 % (0-9) Eosinophils (%) (Auto) 1 % (0-3) Basophils (%) (Auto) 1 % (0-3) Neutrophils # (Auto) 4.3 x10^3uL (1.8-7.7) Lymphocytes # (Auto) 1.1 x10^3/uL (1.0-4.8) Monocytes # (Auto) 1.0 x10^3/uL (0.0-1.1) Eosinophils # (Auto) 0.1 x10^3/uL (0.0-0.7) Basophils # (Auto) 0.1 x10^3/uL (0.0-0.2) D-Dimer (Marie) 0.57 ug/mlFEU (0.00-0.50) Sodium Level 142 mmol/L (136-145) Potassium Level 3.8 mmol/L (3.5-5.1) Chloride Level 100 mmol/L (98-107) Carbon Dioxide Level 34 mmol/L (21-32) Anion Gap 8 (6-14) Blood Urea Nitrogen 28 mg/dL (7-20) Creatinine 1.2 mg/dL (0.6-1.0) Estimated GFR (Cockcroft-Gault) 42.6 BUN/Creatinine Ratio 23 (6-20) Glucose Level 155 mg/dL (70-99) Lactic Acid Level 1.3 mmol/L (0.4-2.0) Calcium Level 9.6 mg/dL (8.5-10.1) Total Bilirubin 0.4 mg/dL (0.2-1.0) Aspartate Amino Transf (AST/SGOT) 15 U/L (15-37) Alanine Aminotransferase (ALT/SGPT) 14 U/L (14-59) Alkaline Phosphatase 88 U/L (46-116) Troponin I Quantitative < 0.017 ng/mL (0.000-0.055) KF-Rrp-U-Type Natriuretic Peptide 7921 pg/mL (0-449) Total Protein 8.8 g/dL (6.4-8.2) Albumin 4.1 g/dL (3.4-5.0) Albumin/Globulin Ratio 0.9 (1.0-1.7) Influenza Type A Antigen Negative (NEGATIVE) Influenza Type B Antigen Negative (NEGATIVE) Urine Collection Type U cath Urine Color Yellow Urine Clarity Clear Urine pH 5.5 Urine Specific Lorida 1.025 Urine Protein 100 mg/dL (NEG-TRACE) Urine Glucose (UA) Negative mg/dL (NEG) Urine Ketones (Stick) 15 mg/dL (NEG) Urine Blood Negative (NEG) Urine Nitrite Negative (NEG) Urine Bilirubin Small (NEG) Urine Urobilinogen Dipstick 1.0 mg/dL (0.2 mg/dL) Urine Leukocyte Esterase Negative (NEG) Urine RBC Occ /HPF (0-2) Urine WBC 0 /HPF (0-4) Urine Squamous Epithelial Cells Occ /LPF Urine Amorphous Sediment Present /HPF Urine Bacteria 0 /HPF (0-FEW) Urine Hyaline Casts Moderate /HPF Urine Mucus Mod /LPF Test 09/19/18 00:21 09/19/18 00:33 09/19/18 05:00 09/19/18 07:50 O2 Saturation 95 % (92-99) 97 % (92-99) Arterial Blood pH 7.31 (7.35-7.45) 7.35 (7.35-7.45) Arterial Blood pCO2 at Patient Temp 64 mmHg (35-46) 53 mmHg (35-46) Arterial Blood pO2 at Patient Temp 81 mmHg (65-108) 91 mmHg (65-108) Arterial Blood HCO3 31 mmol/L (21-28) 29 mmol/L (21-28) Arterial Blood Base Excess 3 mmol/L (-3-3) 2 mmol/L (-3-3) FiO2 32 32 Glucose (Fingerstick) 149 mg/dL (70-99) White Blood Count 4.8 x10^3/uL (4.0-11.0) Red Blood Count 4.50 x10^6/uL (3.50-5.40) Hemoglobin 13.1 g/dL (12.0-15.5) Hematocrit 39.7 % (36.0-47.0) Mean Corpuscular Volume 88 fL (79-100) Mean Corpuscular Hemoglobin 29 pg (25-35) Mean Corpuscular Hemoglobin Concent 33 g/dL (31-37) Red Cell Distribution Width 14.7 % (11.5-14.5) Platelet Count 329 x10^3/uL (140-400) Neutrophils (%) (Auto) 74 % (31-73) Lymphocytes (%) (Auto) 12 % (24-48) Monocytes (%) (Auto) 14 % (0-9) Eosinophils (%) (Auto) 0 % (0-3) Basophils (%) (Auto) 1 % (0-3) Neutrophils # (Auto) 3.6 x10^3uL (1.8-7.7) Lymphocytes # (Auto) 0.6 x10^3/uL (1.0-4.8) Monocytes # (Auto) 0.7 x10^3/uL (0.0-1.1) Eosinophils # (Auto) 0.0 x10^3/uL (0.0-0.7) Basophils # (Auto) 0.0 x10^3/uL (0.0-0.2) Sodium Level 143 mmol/L (136-145) Potassium Level 3.3 mmol/L (3.5-5.1) Chloride Level 100 mmol/L (98-107) Carbon Dioxide Level 32 mmol/L (21-32) Anion Gap 11 (6-14) Blood Urea Nitrogen 29 mg/dL (7-20) Creatinine 1.1 mg/dL (0.6-1.0) Estimated GFR (Cockcroft-Gault) 47.1 BUN/Creatinine Ratio 26 (6-20) Glucose Level 145 mg/dL (70-99) Calcium Level 9.2 mg/dL (8.5-10.1) Magnesium Level 2.0 mg/dL (1.8-2.4) Total Bilirubin 0.3 mg/dL (0.2-1.0) Aspartate Amino Transf (AST/SGOT) 14 U/L (15-37) Alanine Aminotransferase (ALT/SGPT) 13 U/L (14-59) Alkaline Phosphatase 73 U/L (46-116) Total Protein 7.7 g/dL (6.4-8.2) Albumin 3.7 g/dL (3.4-5.0) Albumin/Globulin Ratio 0.9 (1.0-1.7) Triglycerides Level 94 mg/dL (0-150) Cholesterol Level 173 mg/dL (0-200) LDL Cholesterol, Calculated 106 mg/dL (0-100) VLDL Cholesterol, Calculated 19 mg/dL (0-40) Non-HDL Cholesterol Calculated 125 mg/dL (0-129) HDL Cholesterol 48 mg/dL (40-60) Cholesterol/HDL Ratio 3.6 Thyroid Stimulating Hormone (TSH) 0.736 uIU/mL (0.358-3.74) Laboratory Tests Test 09/18/18 18:45 09/18/18 18:48 09/18/18 19:05 09/18/18 19:10 Prothrombin Time 14.4 SEC (11.7-14.0) Prothromb Time International Ratio 1.2 (0.8-1.1) White Blood Count 6.5 x10^3/uL (4.0-11.0) Red Blood Count 4.80 x10^6/uL (3.50-5.40) Hemoglobin 13.9 g/dL (12.0-15.5) Hematocrit 42.6 % (36.0-47.0) Mean Corpuscular Volume 89 fL (79-100) Mean Corpuscular Hemoglobin 29 pg (25-35) Mean Corpuscular Hemoglobin Concent 33 g/dL (31-37) Red Cell Distribution Width 15.0 % (11.5-14.5) Platelet Count 423 x10^3/uL (140-400) Neutrophils (%) (Auto) 66 % (31-73) Lymphocytes (%) (Auto) 17 % (24-48) Monocytes (%) (Auto) 15 % (0-9) Eosinophils (%) (Auto) 1 % (0-3) Basophils (%) (Auto) 1 % (0-3) Neutrophils # (Auto) 4.3 x10^3uL (1.8-7.7) Lymphocytes # (Auto) 1.1 x10^3/uL (1.0-4.8) Monocytes # (Auto) 1.0 x10^3/uL (0.0-1.1) Eosinophils # (Auto) 0.1 x10^3/uL (0.0-0.7) Basophils # (Auto) 0.1 x10^3/uL (0.0-0.2) D-Dimer (Marie) 0.57 ug/mlFEU (0.00-0.50) Sodium Level 142 mmol/L (136-145) Potassium Level 3.8 mmol/L (3.5-5.1) Chloride Level 100 mmol/L (98-107) Carbon Dioxide Level 34 mmol/L (21-32) Anion Gap 8 (6-14) Blood Urea Nitrogen 28 mg/dL (7-20) Creatinine 1.2 mg/dL (0.6-1.0) Estimated GFR (Cockcroft-Gault) 42.6 BUN/Creatinine Ratio 23 (6-20) Glucose Level 155 mg/dL (70-99) Lactic Acid Level 1.3 mmol/L (0.4-2.0) Calcium Level 9.6 mg/dL (8.5-10.1) Total Bilirubin 0.4 mg/dL (0.2-1.0) Aspartate Amino Transf (AST/SGOT) 15 U/L (15-37) Alanine Aminotransferase (ALT/SGPT) 14 U/L (14-59) Alkaline Phosphatase 88 U/L (46-116) Troponin I Quantitative < 0.017 ng/mL (0.000-0.055) DW-Ash-Y-Type Natriuretic Peptide 7921 pg/mL (0-449) Total Protein 8.8 g/dL (6.4-8.2) Albumin 4.1 g/dL (3.4-5.0) Albumin/Globulin Ratio 0.9 (1.0-1.7) Influenza Type A Antigen Negative (NEGATIVE) Influenza Type B Antigen Negative (NEGATIVE) Urine Collection Type U cath Urine Color Yellow Urine Clarity Clear Urine pH 5.5 Urine Specific Lorida 1.025 Urine Protein 100 mg/dL (NEG-TRACE) Urine Glucose (UA) Negative mg/dL (NEG) Urine Ketones (Stick) 15 mg/dL (NEG) Urine Blood Negative (NEG) Urine Nitrite Negative (NEG) Urine Bilirubin Small (NEG) Urine Urobilinogen Dipstick 1.0 mg/dL (0.2 mg/dL) Urine Leukocyte Esterase Negative (NEG) Urine RBC Occ /HPF (0-2) Urine WBC 0 /HPF (0-4) Urine Squamous Epithelial Cells Occ /LPF Urine Amorphous Sediment Present /HPF Urine Bacteria 0 /HPF (0-FEW) Urine Hyaline Casts Moderate /HPF Urine Mucus Mod /LPF Test 09/19/18 00:21 09/19/18 00:33 09/19/18 05:00 09/19/18 07:50 O2 Saturation 95 % (92-99) 97 % (92-99) Arterial Blood pH 7.31 (7.35-7.45) 7.35 (7.35-7.45) Arterial Blood pCO2 at Patient Temp 64 mmHg (35-46) 53 mmHg (35-46) Arterial Blood pO2 at Patient Temp 81 mmHg (65-108) 91 mmHg (65-108) Arterial Blood HCO3 31 mmol/L (21-28) 29 mmol/L (21-28) Arterial Blood Base Excess 3 mmol/L (-3-3) 2 mmol/L (-3-3) FiO2 32 32 Glucose (Fingerstick) 149 mg/dL (70-99) White Blood Count 4.8 x10^3/uL (4.0-11.0) Red Blood Count 4.50 x10^6/uL (3.50-5.40) Hemoglobin 13.1 g/dL (12.0-15.5) Hematocrit 39.7 % (36.0-47.0) Mean Corpuscular Volume 88 fL (79-100) Mean Corpuscular Hemoglobin 29 pg (25-35) Mean Corpuscular Hemoglobin Concent 33 g/dL (31-37) Red Cell Distribution Width 14.7 % (11.5-14.5) Platelet Count 329 x10^3/uL (140-400) Neutrophils (%) (Auto) 74 % (31-73) Lymphocytes (%) (Auto) 12 % (24-48) Monocytes (%) (Auto) 14 % (0-9) Eosinophils (%) (Auto) 0 % (0-3) Basophils (%) (Auto) 1 % (0-3) Neutrophils # (Auto) 3.6 x10^3uL (1.8-7.7) Lymphocytes # (Auto) 0.6 x10^3/uL (1.0-4.8) Monocytes # (Auto) 0.7 x10^3/uL (0.0-1.1) Eosinophils # (Auto) 0.0 x10^3/uL (0.0-0.7) Basophils # (Auto) 0.0 x10^3/uL (0.0-0.2) Sodium Level 143 mmol/L (136-145) Potassium Level 3.3 mmol/L (3.5-5.1) Chloride Level 100 mmol/L (98-107) Carbon Dioxide Level 32 mmol/L (21-32) Anion Gap 11 (6-14) Blood Urea Nitrogen 29 mg/dL (7-20) Creatinine 1.1 mg/dL (0.6-1.0) Estimated GFR (Cockcroft-Gault) 47.1 BUN/Creatinine Ratio 26 (6-20) Glucose Level 145 mg/dL (70-99) Calcium Level 9.2 mg/dL (8.5-10.1) Magnesium Level 2.0 mg/dL (1.8-2.4) Total Bilirubin 0.3 mg/dL (0.2-1.0) Aspartate Amino Transf (AST/SGOT) 14 U/L (15-37) Alanine Aminotransferase (ALT/SGPT) 13 U/L (14-59) Alkaline Phosphatase 73 U/L (46-116) Total Protein 7.7 g/dL (6.4-8.2) Albumin 3.7 g/dL (3.4-5.0) Albumin/Globulin Ratio 0.9 (1.0-1.7) Triglycerides Level 94 mg/dL (0-150) Cholesterol Level 173 mg/dL (0-200) LDL Cholesterol, Calculated 106 mg/dL (0-100) VLDL Cholesterol, Calculated 19 mg/dL (0-40) Non-HDL Cholesterol Calculated 125 mg/dL (0-129) HDL Cholesterol 48 mg/dL (40-60) Cholesterol/HDL Ratio 3.6 Thyroid Stimulating Hormone (TSH) 0.736 uIU/mL (0.358-3.74) Medications Current Medications Albuterol/ Ipratropium (Duoneb) 3 ml 1X ONCE NEB Last administered on at 18:57; Start 09/18/18 at 18:45; Stop 09/18/18 at 18:51; Status DC Labetalol HCl (Normodyne Iv Push) 20 mg 1X ONCE IVP Last administered on at 19:00; Start 09/18/18 at 19:00; Stop 09/18/18 at 19:01; Status DC Furosemide (Lasix) 40 mg 1X ONCE IVP Last administered on 09/18/18at 20:45; Start 09/18/18 at 20:45; Stop 09/18/18 at 20:46; Status DC Albuterol/ Ipratropium (Duoneb) 3 ml Q4HRS W/A NEB Last administered on at 07:53; Start 09/18/18 at 22:00 Budesonide (Pulmicort) 0.5 mg RTBID NEB ; Start 09/19/18 at 08:00 Acetaminophen (Tylenol) 650 mg PRN Q6HRS PRN PO MILD PAIN / TEMP; Start at 21:15 Amlodipine Besylate (Norvasc) 5 mg DAILY PO Last administered on 09/19/18at 09: 56; Start 09/19/18 at 09:00 Atorvastatin Calcium (Lipitor) 20 mg HS PO ; Start 09/18/18 at 22:00 Bisacodyl (Dulcolax Tab) 5 mg PRN DAILY PRN PO CONSTIPATION; Start 09/18/18 at 21:15 Calcium Carbonate/ Glycine (Tums) 500 mg BIDWMEALS PO Last administered on 09/19at 09:55; Start 09/19/18 at 08:00 Docusate Sodium (Colace) 100 mg PRN BID PRN PO CONSTIPATION; Start 09/18/18 at 21:15 Oxybutynin Chloride (Ditropan) 5 mg BID PO Last administered on 09/19/18at 09:54 ; Start 09/18/18 at 22:00 Senna/Docusate Sodium (Senna Plus) 2 tab QHS PO ; Start 09/19/18 at 21:00 Trazodone HCl (Desyrel) 50 mg HS PO ; Start 09/19/18 at 21:00 Zolpidem Tartrate (Ambien) 5 mg PRN QHS PRN PO INSOMNIA; Start 09/18/18 at 21: 15 Atenolol (Tenormin) 100 mg DAILY PO ; Start 09/19/18 at 09:00 Lactobacillus Rhamnosus (Culturelle) 1 cap BIDWMEALS PO Last administered on at 09:55; Start 09/19/18 at 08:00 Losartan Potassium (Cozaar) 100 mg DAILY PO Last administered on 09/19/18at 09: 54; Start 09/19/18 at 09:00 Al Hydroxide/Mg Hydroxide (Mylanta Plus Xs) 30 ml PRN Q3HRS PRN PO stomach upset Last administered on 09/19/18at 09:56; Start 09/18/18 at 21:15 Pantoprazole Sodium (Protonix) 40 mg QHS PO ; Start 09/18/18 at 22:00 Polyethylene Glycol (miraLAX PACKET) 17 gm DAILY PO ; Start 09/19/18 at 09:00 Simvastatin (Zocor) 40 mg QHS PO ; Start 09/19/18 at 21:00 Furosemide (Lasix) 40 mg DAILY IVP Last administered on 09/19/18at 09:56; Start 09/19/18 at 09:00 Labetalol HCl (Normodyne Iv Push) 20 mg PRN Q2HR PRN IVP HYPERTENSION, SEE COMMENTS Last administered on 09/18/18at 23:42; Start 09/18/18 at 23:30 Albuterol/ Ipratropium (Duoneb) 3 ml 1X ONCE NEB ; Start 09/19/18 at 00:45; Stop 09/19/18 at 00:46; Status DC Albuterol/ Ipratropium (Duoneb) 3 ml 1X ONCE NEB Last administered on at 01:18; Start 09/19/18 at 01:15; Stop 09/19/18 at 01:16; Status DC Nitroglycerin (Nitro-Bid Oint) 1 inch 1X ONCE TP Last administered on at 01:36; Start 09/19/18 at 01:15; Stop 09/19/18 at 01:16; Status DC Lorazepam (Ativan) 0.5 mg PRN Q4HRS PRN IV ANXIETY / AGITATION Last administered on 09/19/18at 01:37; Start 09/19/18 at 01:15 Potassium Chloride (Klor-Con) 40 meq 1X ONCE PO Last administered on at 09:55; Start 09/19/18 at 07:00; Stop 09/19/18 at 07:01; Status DC Ceftriaxone Sodium (Rocephin) 1 gm Q24H IVP ; Start 09/19/18 at 11:00 Doxycycline Hyclate (Vibra-Tab) 100 mg BID PO ; Start 09/19/18 at 21:00 Doxycycline Hyclate (Vibra-Tab) 100 mg 1X ONCE PO ; Start 09/19/18 at 10:30; Stop 09/19/18 at 10:31 Methylprednisolone Sodium Succinate (SOLU-Medrol 40MG VIAL) 40 mg 1X ONCE IV ; Start 09/19/18 at 10:30; Stop 09/19/18 at 10:31 Prednisone (Prednisone) 40 mg DAILY PO ; Start 09/20/18 at 14:00 Active Scripts Active Reported Losartan Potassium 100 Mg Tablet 100 Mg PO DAILY Tums (Calcium Carbonate) 200 Mg Tab.chew 500 Mg PO BIDWMEALS Tums (Calcium Carbonate) 300 Mg Tab.chew 300 Mg PO Miralax (Polyethylene Glycol 3350) 17 Gm Powd.pack 1 Packet PO DAILY Senna Plus Tablet (Sennosides/Docusate Sodium) 1 Each Tablet 2 Each PO QHS Women's Laxative (Bisacodyl) 5 Mg Tablet 4 Tab PO UD Dulcolax (Bisacodyl) 5 Mg Tablet. 5 Mg PO PRN DAILY PRN Dulcolax (Bisacodyl) 5 Mg Tablet.dr 4 Tab PO ONCE Mintox Plus Tablet Chewable (Mag Hydrox/Al Hydrox/Simeth) 1 Each Tab.chew 2 Each PO Q3HRS PRN Docusate Sodium 100 Mg Capsule 1 Cap PO BID PRN Tylenol (Acetaminophen) 325 Mg Tablet 650 Mg PO Q6HRS PRN Atorvastatin Calcium 20 Mg Tablet 1 Tab PO HS Acidophilus-Pectin Capsule (Lactobacillus Acidophilus/Pect) 1 Each Capsule 1 Each PO BIDWMEALS Omeprazole 40 Mg Capsule.dr 1 Cap PO QHS Vitamin D2 (Ergocalciferol (Vitamin D2)) 50,000 Unit Capsule 1 Cap PO QSA Zolpidem Tartrate 5 Mg Tablet 5 Mg PO PRN QHS PRN Simvastatin 40 Mg Tablet 1 Tab PO QHS Oxybutynin Chloride 5 Mg Tablet 1 Tab PO BID Omeprazole 20 Mg Capsule.dr 1 Cap PO HS Warfarin Sodium 5 Mg Tablet 1 Tab PO DAILY Furosemide 40 Mg Tablet 40 Mg PO PRN DAILY PRN Trazodone Hcl 50 Mg Tablet 50 Mg PO HS Amlodipine Besylate 5 Mg Tablet 5 Mg PO DAILY Meloxicam 7.5 Mg Tablet 7.5 Mg PO DAILY Atenolol 100 Mg Tablet 100 Mg PO DAILY Diovan (Valsartan) 320 Mg Tablet 320 Mg PO DAILY Vitals/I & O Vital Sign - Last 24 Hours 09/18/18 09/18/18 09/18/18 09/18/18 18:37 19:00 19:30 20:00 Temp 99.4 99.4 Pulse 82 76 72 72 Resp 28 18 16 B/P (MAP) 253/118 (163) 220/98 140/76 (97) 180/88 (118) Pulse Ox 67 3 97 O2 Delivery Room Air Nasal Cannula Room Air 09/18/18 09/18/18 09/18/18 09/18/18 22:25 22:30 22:30 23:42 Temp 98.3 98.3 Pulse 74 68 81 Resp 18 23 B/P (MAP) 192/92 (125) 205/88 (127) 214/94 Pulse Ox 98 96 O2 Delivery Nasal Cannula Nasal Cannula Nasal Cannula O2 Flow Rate 2.0 2.0 3.0 09/19/18 09/19/18 09/19/18 09/19/18 00:00 00:45 01:36 02:55 Pulse 81 B/P (MAP) 214/94 Pulse Ox 96 96 98 O2 Delivery Nasal Cannula Nasal Cannula BiPAP/CPAP O2 Flow Rate 3.0 09/19/18 09/19/18 09/19/18 09/19/18 03:40 05:28 07:33 07:51 Temp 98.3 99.6 98.3 99.6 Pulse 79 81 Resp 22 18 B/P (MAP) 133/62 (85) 174/69 (104) Pulse Ox 96 98 96 96 O2 Delivery Room Air BiPAP/CPAP Room Air Nasal Cannula O2 Flow Rate 3.0 09/19/18 09/19/18 09:54 09:56 Pulse 81 81 B/P (MAP) 174/69 174/69 Intake and Output 09/18/18 09/18/18 09/19/18 15:01 23:01 07:01 Intake Total 0 ml Output Total 350 ml Balance -350 ml SONU HERRERA MD Sep 19, 2018 10:28
[2018-09-19] MEDS ORDERED: DOXYCYCLINE HYCLATE 100 MG TABLET PO ONE (10:30)
[2018-09-19] MEDS ORDERED: methylPREDNISolone SOD SUCC PF 40 MG/ML VIAL. IV ONE (10:30)
[2018-09-19] MEDS ORDERED: IV NORMAL SALINE 500ML BAG 500 ML IV ONE (10:45)
[2018-09-19] MEDS ORDERED: IOHEXOL 350 MG/ML 100 ML VIAL. IV ONE (10:45)
[2018-09-19] MEDS ORDERED: CONTRAST GIVEN. MC PRN (10:45)
--- NOTE | 2018-09-19 10:45 | CONS ---
DATE OF CONSULTATION: ATTENDING PHYSICIAN: Dr. Ledbetter. REASON FOR CONSULTATION: Hypoxic and hypercapnic respiratory failure. HISTORY OF PRESENT ILLNESS: The patient is an 88-year-old female who lives at assisted living facility. She had some runny nose and URI symptoms with some cough and felt weak. She was noted to have saturation of 89% at the assisted living. Her daughter, who is a nurse, noted that she was wheezing as well. She eventually dropped her saturations in the 80s and she was brought in to the Emergency Room. The daughter said the lowest saturation was 69%. She was wheezing. She did receive bronchodilators. I was called after rapid response early this morning. The patient's arterial blood gases were abnormal with a pH of 7.31, pCO2 of 64, and a pO2 81 on 32% FiO2. I ordered to be placed on BiPAP. After some initial reluctance and after she was convinced by her daughter to use BiPAP, she was able to use it for 3 hours and latest ABGs have shown a pH of 7.35, pCO2 of 53 and a pO2 of 91. She feels better, but she still feels very weak. She did receive Ativan last night 0.5 mg for her to tolerate the BiPAP. No headaches. No nausea or vomiting, no diarrhea. She has some mild lower extremity edema. No skin rash. No focal weakness. PAST MEDICAL HISTORY: Significant for atrial fibrillation, hypertension, hyperlipidemia, aortic stenosis. No significant history of tobacco use, but has secondhand tobacco exposure. History of CVA PAST SURGICAL HISTORY: CABG. FAMILY HISTORY: Coronary artery disease. SOCIAL HISTORY: Secondhand tobacco from her for many years. ALLERGIES: None. CURRENT MEDICATIONS: Reviewed, as listed in the MRAD. REVIEW OF SYSTEMS: Twelve-point system obtained. Pertinent positives discussed in my history of present illness, otherwise noncontributory. All systems that were negative were reviewed as well. PHYSICAL EXAMINATION: GENERAL: She appears weak. VITAL SIGNS: T-max of 99.6. Pulse ox is 96% on 3 liters. Blood pressure on the high side, 174/69. HEENT: Sclerae nonicteric. NECK: Supple. LUNGS: With faint expiratory wheeze on the right upper chest. CARDIOVASCULAR: Regular rate. ABDOMEN: Soft, nontender. EXTREMITIES: With trace pitting edema. LABORATORY DATA: Reviewed. ABG as discussed in my history of present illness. BUN 29, creatinine 1.1. INR is 1.2. D-dimer mildly elevated at 0.57. White cell count 4.8, hemoglobin 13.1 and platelets are 329. IMPRESSION: 1. Acute hypoxic and hypercapnic respiratory failure, likely secondary to acute exacerbation of chronic obstructive pulmonary disease and triggered by lower respiratory tract infection. 2. Low-grade fever. Possible acute bronchitis versus mild right upper lobe pneumonia. 3. Cannot exclude the possibility of thromboembolic disease. D-dimer mildly elevated. 4. Mild renal insufficiency. 5. Clinically unlikely congestive heart failure. RECOMMENDATIONS: 1. Discussed with the patient's daughter and Dr. Ledbetter. We will continue present oxygen. 2. Add empiric antibiotic. 3. DuoNeb. 4. Consider holding atenolol until bronchospasm is resolved. 5. IV steroids. 7. CTA chest to rule out any PE/ pneumonia. 8. Obtain an echocardiogram. 9. Optimization of blood pressure per PCP. 10. We will follow along with you. DANDY RIVERA MD DR: YEIMY/stephan JOB#: [id number] / [id number] TOYA
[2018-09-19 11:05] VITALS: BP 106/55
[2018-09-19] MEDS: cefTRIAXone IV Push 1 GM VIAL. IVP SCH (13:19)
--- NOTE | 2018-09-19 13:28 | PDOC2 ---
ULYSSES RODRIGUEZ PET CARETAKER 09/19/18 1328: CARDIAC CONSULT DATE OF CONSULT Date of Consult DATE: 09/19/18 TIME: 13:07 REASON FOR CONSULT Reason for Consult: Acute diastolic CHF REFERRING PHYSICIAN Referring Physician: Anatoly SOURCE Source: Chart review, Patient HISTORY OF PRESENT ILLNESS HISTORY OF PRESENT ILLNESS This is an 88 yo female admitted for complains of SOA. He was noted with O2 sat in the 70s upon admission to ED and lasix was given. also noted with malignant HTN with BP as high as 253/118. In the last week she has been coughing and barely anything comes out. She finally noted yellowish sputum at some point. No CP. She has been having SOA in the last few days worse overnight. No vomiting but with nausea but no diarrhea and her hydration has been poor. She has not been missing her BP meds per se but her medications were recently adjusted to daily. No falls or any recent injury. No palpitations. No chills or fever or feeling hot but was noted with temp of 99 last night. PAST MEDICAL HISTORY Cardiovascular: AFIB, HTN, Hyperlipidemia, Aortic stenosis, Other (carotid artery disease) Pulmonary: COPD, Other (pulmonary HTN) CENTRAL NERVOUS SYSTEM: CVA, Other GI: GERD Musculoskeletal: low back pain (lumbar stenosis), Osteoarthritis, Other (left side hemiparesis) Renal/: UTI PAST SURGICAL HISTORY Past Surgical History: CABG (with AVR bioprosthetic), Other (Left carotid endarterectomy) FAMILY HISTORY Family History: Coronary Artery Disease SOCIAL HISTORY Smoke: No ALCOHOL: none Drugs: None Lives: Alone (assisted living) CURRENT MEDICATIONS CURRENT MEDICATIONS Current Medications Medications (Trade) Dose Ordered Sig/Moon Route PRN Reason Start Time Stop Time Status Last Admin Dose Admin Albuterol/ Ipratropium (Duoneb) 3 ml 1X ONCE NEB 09/18/18 18:45 09/18/18 18:51 DC 09/18/18 18:57 Labetalol HCl (Normodyne Iv Push) 20 mg 1X ONCE IVP 09/18/18 19:00 09/18/18 19:01 DC 09/18/18 19:00 Furosemide (Lasix) 40 mg 1X ONCE IVP 09/18/18 20:45 09/18/18 20:46 DC 09/18/18 20:45 Albuterol/ Ipratropium (Duoneb) 3 ml Q4HRS W/A NEB 09/18/18 22:00 09/19/18 10:00 Amlodipine Besylate (Norvasc) 5 mg DAILY PO 09/19/18 09:00 09/19/18 09:56 Calcium Carbonate/ Glycine (Tums) 500 mg BIDWMEALS PO 09/19/18 08:00 09/19/18 09:55 Oxybutynin Chloride (Ditropan) 5 mg BID PO 09/18/18 22:00 09/19/18 09:54 Lactobacillus Rhamnosus (Culturelle) 1 cap BIDWMEALS PO 09/19/18 08:00 09/19/18 09:55 Losartan Potassium (Cozaar) 100 mg DAILY PO 09/19/18 09:00 09/19/18 09:54 Al Hydroxide/Mg Hydroxide (Mylanta Plus Xs) 30 ml PRN Q3HRS PRN PO stomach upset 09/18/18 21:15 09/19/18 09:56 Furosemide (Lasix) 40 mg DAILY IVP 09/19/18 09:00 09/19/18 10:32 DC 09/19/18 09:56 Labetalol HCl (Normodyne Iv Push) 20 mg PRN Q2HR PRN IVP HYPERTENSION, SEE COMMENTS 09/18/18 23:30 09/18/18 23:42 Albuterol/ Ipratropium (Duoneb) 3 ml 1X ONCE NEB 09/19/18 01:15 09/19/18 01:16 DC 09/19/18 01:18 Nitroglycerin (Nitro-Bid Oint) 1 inch 1X ONCE TP 09/19/18 01:15 09/19/18 01:16 DC 09/19/18 01:36 Lorazepam (Ativan) 0.5 mg PRN Q4HRS PRN IV ANXIETY / AGITATION 09/19/18 01:15 09/19/18 01:37 Potassium Chloride (Klor-Con) 40 meq 1X ONCE PO 09/19/18 07:00 09/19/18 07:01 DC 09/19/18 09:55 Sodium Chloride 500 ml @ 500 mls/hr 1X ONCE IV 09/19/18 10:45 09/19/18 11:44 DC 09/19/18 10:38 ALLERGIES ALLERGIES: Coded Allergies: No Known Drug Allergies (Unverified , 08/11/15) ROS Review of System 14 point ROS evaluated with pertinent positives noted per HPI PHYSICAL EXAM General: Alert, Oriented X3, Cooperative, No acute distress HEENT: Atraumatic, Mucous membr. moist/pink Lungs: Other (upper rhonchi, diminnished bases) Heart: Regular rate (SR), Normal S1, Normal S2, Other (3/6 systolic murmur to ELLIE border) Abdomen: Soft, No tenderness Extremities: No cyanosis, No edema Skin: No breakdown, No significant lesion Neuro: Normal speech, Sensation intact Psych/Mental Status: Mental status NL, Mood NL MUSCULOSKELETAL: Osteoarthritic changes both hands VITALS VITALS Vital Signs Date Time Temp Pulse Resp B/P (MAP) Pulse Ox O2 Delivery O2 Flow Rate FiO2 09/19/18 11:54 Nasal Cannula 3.0 09/19/18 11:05 98.8 84 18 106/55 (72) 96 98.8 LABS Lab: Laboratory Tests Test 09/18/18 18:45 09/18/18 18:48 09/18/18 19:05 09/18/18 19:10 Prothrombin Time 14.4 SEC (11.7-14.0) Prothromb Time International Ratio 1.2 (0.8-1.1) White Blood Count 6.5 x10^3/uL (4.0-11.0) Red Blood Count 4.80 x10^6/uL (3.50-5.40) Hemoglobin 13.9 g/dL (12.0-15.5) Hematocrit 42.6 % (36.0-47.0) Mean Corpuscular Volume 89 fL (79-100) Mean Corpuscular Hemoglobin 29 pg (25-35) Mean Corpuscular Hemoglobin Concent 33 g/dL (31-37) Red Cell Distribution Width 15.0 % (11.5-14.5) Platelet Count 423 x10^3/uL (140-400) Neutrophils (%) (Auto) 66 % (31-73) Lymphocytes (%) (Auto) 17 % (24-48) Monocytes (%) (Auto) 15 % (0-9) Eosinophils (%) (Auto) 1 % (0-3) Basophils (%) (Auto) 1 % (0-3) Neutrophils # (Auto) 4.3 x10^3uL (1.8-7.7) Lymphocytes # (Auto) 1.1 x10^3/uL (1.0-4.8) Monocytes # (Auto) 1.0 x10^3/uL (0.0-1.1) Eosinophils # (Auto) 0.1 x10^3/uL (0.0-0.7) Basophils # (Auto) 0.1 x10^3/uL (0.0-0.2) D-Dimer (Marie) 0.57 ug/mlFEU (0.00-0.50) Sodium Level 142 mmol/L (136-145) Potassium Level 3.8 mmol/L (3.5-5.1) Chloride Level 100 mmol/L (98-107) Carbon Dioxide Level 34 mmol/L (21-32) Anion Gap 8 (6-14) Blood Urea Nitrogen 28 mg/dL (7-20) Creatinine 1.2 mg/dL (0.6-1.0) Estimated GFR (Cockcroft-Gault) 42.6 BUN/Creatinine Ratio 23 (6-20) Glucose Level 155 mg/dL (70-99) Lactic Acid Level 1.3 mmol/L (0.4-2.0) Calcium Level 9.6 mg/dL (8.5-10.1) Total Bilirubin 0.4 mg/dL (0.2-1.0) Aspartate Amino Transf (AST/SGOT) 15 U/L (15-37) Alanine Aminotransferase (ALT/SGPT) 14 U/L (14-59) Alkaline Phosphatase 88 U/L (46-116) Troponin I Quantitative < 0.017 ng/mL (0.000-0.055) DM-Bni-O-Type Natriuretic Peptide 7921 pg/mL (0-449) Total Protein 8.8 g/dL (6.4-8.2) Albumin 4.1 g/dL (3.4-5.0) Albumin/Globulin Ratio 0.9 (1.0-1.7) Influenza Type A Antigen Negative (NEGATIVE) Influenza Type B Antigen Negative (NEGATIVE) Urine Collection Type U cath Urine Color Yellow Urine Clarity Clear Urine pH 5.5 Urine Specific [place] 1.025 Urine Protein 100 mg/dL (NEG-TRACE) Urine Glucose (UA) Negative mg/dL (NEG) Urine Ketones (Stick) 15 mg/dL (NEG) Urine Blood Negative (NEG) Urine Nitrite Negative (NEG) Urine Bilirubin Small (NEG) Urine Urobilinogen Dipstick 1.0 mg/dL (0.2 mg/dL) Urine Leukocyte Esterase Negative (NEG) Urine RBC Occ /HPF (0-2) Urine WBC 0 /HPF (0-4) Urine Squamous Epithelial Cells Occ /LPF Urine Amorphous Sediment Present /HPF Urine Bacteria 0 /HPF (0-FEW) Urine Hyaline Casts Moderate /HPF Urine Mucus Mod /LPF Test 09/19/18 00:21 09/19/18 00:33 09/19/18 05:00 09/19/18 07:50 O2 Saturation 95 % (92-99) 97 % (92-99) Arterial Blood pH 7.31 (7.35-7.45) 7.35 (7.35-7.45) Arterial Blood pCO2 at Patient Temp 64 mmHg (35-46) 53 mmHg (35-46) Arterial Blood pO2 at Patient Temp 81 mmHg (65-108) 91 mmHg (65-108) Arterial Blood HCO3 31 mmol/L (21-28) 29 mmol/L (21-28) Arterial Blood Base Excess 3 mmol/L (-3-3) 2 mmol/L (-3-3) FiO2 32 32 Glucose (Fingerstick) 149 mg/dL (70-99) White Blood Count 4.8 x10^3/uL (4.0-11.0) Red Blood Count 4.50 x10^6/uL (3.50-5.40) Hemoglobin 13.1 g/dL (12.0-15.5) Hematocrit 39.7 % (36.0-47.0) Mean Corpuscular Volume 88 fL (79-100) Mean Corpuscular Hemoglobin 29 pg (25-35) Mean Corpuscular Hemoglobin Concent 33 g/dL (31-37) Red Cell Distribution Width 14.7 % (11.5-14.5) Platelet Count 329 x10^3/uL (140-400) Neutrophils (%) (Auto) 74 % (31-73) Lymphocytes (%) (Auto) 12 % (24-48) Monocytes (%) (Auto) 14 % (0-9) Eosinophils (%) (Auto) 0 % (0-3) Basophils (%) (Auto) 1 % (0-3) Neutrophils # (Auto) 3.6 x10^3uL (1.8-7.7) Lymphocytes # (Auto) 0.6 x10^3/uL (1.0-4.8) Monocytes # (Auto) 0.7 x10^3/uL (0.0-1.1) Eosinophils # (Auto) 0.0 x10^3/uL (0.0-0.7) Basophils # (Auto) 0.0 x10^3/uL (0.0-0.2) Sodium Level 143 mmol/L (136-145) Potassium Level 3.3 mmol/L (3.5-5.1) Chloride Level 100 mmol/L (98-107) Carbon Dioxide Level 32 mmol/L (21-32) Anion Gap 11 (6-14) Blood Urea Nitrogen 29 mg/dL (7-20) Creatinine 1.1 mg/dL (0.6-1.0) Estimated GFR (Cockcroft-Gault) 47.1 BUN/Creatinine Ratio 26 (6-20) Glucose Level 145 mg/dL (70-99) Calcium Level 9.2 mg/dL (8.5-10.1) Magnesium Level 2.0 mg/dL (1.8-2.4) Total Bilirubin 0.3 mg/dL (0.2-1.0) Aspartate Amino Transf (AST/SGOT) 14 U/L (15-37) Alanine Aminotransferase (ALT/SGPT) 13 U/L (14-59) Alkaline Phosphatase 73 U/L (46-116) Total Protein 7.7 g/dL (6.4-8.2) Albumin 3.7 g/dL (3.4-5.0) Albumin/Globulin Ratio 0.9 (1.0-1.7) Triglycerides Level 94 mg/dL (0-150) Cholesterol Level 173 mg/dL (0-200) LDL Cholesterol, Calculated 106 mg/dL (0-100) VLDL Cholesterol, Calculated 19 mg/dL (0-40) Non-HDL Cholesterol Calculated 125 mg/dL (0-129) HDL Cholesterol 48 mg/dL (40-60) Cholesterol/HDL Ratio 3.6 Thyroid Stimulating Hormone (TSH) 0.736 uIU/mL (0.358-3.74) ECHOCARDIOGRAM ECHOCARDIOGRAM <Conclusion> The left ventricular systolic function is normal. The Ejection Fraction is 55%. The RV is mildly dilated The LA is dilated The RA is mildly dilated The aortic valve is a Bioprosthetic valve that seems to be working normaly Doppler and Color-flow revealed mild mitral regurgitation. Doppler and Color Flow revealed mild tricuspid regurgitation. The PA pressure was estimated at 41 mmHg Doppler and Color Flow revealed mild pulmonic valvular regurgitation. There is no evidence of significant pericardial effusion. No thrombus was seen in any of the chambers DATE: 02/18/181701 ASSESSMENT/PLAN ASSESSMENT/PLAN 1. Acute respiratory failure: bronchitis with possible PNA. 2. Chronic diastolic CHF: again no peripheral edema nor effusion, nothing overt. BNP elevation due to HTN and hypoxia. 3. Malignant HTN: potentially this could accentuate/contribute to SOA with BP as high as 253/118 but does not explain her hypercarbia 4. CAD/; Past CABGx3/bioprothetic AVR. 5. AECOPD with pulmonary HTN 6. Hx of of CVA with left hemiparesis 7. KRISTINA: poor hydration Recommendations 1. Agree with chest CTA. 2. I discussed with daughter extensively in regards to AFIB and anticoagulation and her risk for AFIB. She repeatedly mentioned her not having AFIB and coumadin was eventually taken off over 6 months ago and deemed that her CVA was due to to extensive carotid artery disease. Will continue with ASA and will plan for outpt MCT to ascertain AFIB burden and she agreed with this. 3. Continue secondary prevention measures. Continue atenolol 4. TTE. change statin to lipitor. IVF ongoing. 5. Note BP trend with BP regimen and will adjust as warranted. 6. He used to follow up with Dr. See and will start following up in our office. HANNAH HARVEY MD 09/19/181716: CARDIAC CONSULT ASSESSMENT/PLAN ASSESSMENT/PLAN Pt. seen and examined. Agree with above [employer] note. 88 y.o woman presenting with hypoxic and hypercapneic resp failure. No obvious cardiac symptoms. Sh has recent CVA history. Flat affect. Normal cardiac exam with soft flow murmur consistent with hx of AVR. No edema. Continue supportive care for now. Discussed with family. She likely has some mild diastolic HF. Gentle diuresis as tolerated. Normal EF by echo. CTA suggestive of inflammatory changes. Supportive care. ULYSSES RODRIGUEZ PET CARETAKER Sep 19, 2018 13:28 HANNAH HARVEY MD Sep 19, 2018 17:17
--- NOTE | 2018-09-19 15:03 | CARD ---
MR#: [id number] Date of Study: 09/19/2018 Ordering Physician: ULYSSES RODRIGUEZ, Referring Physician: SONU HERRERA, Tech: Ewa Magaña APPROVED REPORT EXAM: Two-dimensional and M-mode echocardiogram with Doppler and color Doppler. Other Information Quality : AverageHR: 90bpm INDICATION Dyspnea Congestive Heart Failure Surgery/Intervention Status/Post Aortic Valve Replacement: RISK FACTORS Hypertension 2D DIMENSIONS Left Atrium(2D)3.5 (1.6-4.0cm)IVSd1.3 (0.7-1.1cm) Aortic Root(2D)2.6 (2.0-3.7cm)LVDd4.1 (3.9-5.9cm) LVOT Diameter2.1 (1.8-2.4cm)PWd0.9 (0.7-1.1cm) LVDs3.1 (2.5-4.0cm)FS (%) 24.4 % SV36.8 ml Aortic Valve AoV Peak Johnnie.239.4cm/sAoV VTI37.4cm AO Peak GR.22.9mmHgLVOT VTI 18.77cm AO Mean GR.14mmHg Mitral Valve MV E Sfrjrzvr71.7cm/sMV DECEL [id number] MV A Wrliuxxg40.1cm/sE/A Ratio0.9 TDI Lateral E' P. V8.11cm/sMedial E' P. V6.56cm/s E/Lateral E'10.9E/Medial E'13.5 Tricuspid Valve RAP [id number] LEFT VENTRICLE The left ventricle is normal size. There is mild to moderate concentric left ventricular hypertrophy. The left ventricular systolic function is normal and the ejection fraction is within normal range. T he Ejection Fraction is 50-55%. There is normal LV segmental wall motion. Transmitral Doppler flow pa ttern is Grade I-abnormal relaxation pattern. RIGHT VENTRICLE The right ventricle is normal size. There is normal right ventricular wall thickness. The right ventr icular systolic function is normal. ATRIA The left atrium size is normal. The right atrium size is normal. The interatrial septum is intact wit h no evidence for an atrial septal defect or patent foramen ovale as noted on 2-D or Doppler imaging. AORTIC VALVE Doppler and Color Flow revealed no significant aortic regurgitation. Normal appearance of a prostheti c aortic valve. There are normal prosthetic aortic valve gradients. MITRAL VALVE The mitral valve is normal in structure and function. There is no evidence of mitral valve prolapse. There is no mitral valve stenosis. Doppler and Color Flow revealed trace mitral valve regurgitation. TRICUSPID VALVE The tricuspid valve is not well visualized. Doppler and Color Flow revealed trace tricuspid regurgita tion. There is no tricuspid valve stenosis. PULMONIC VALVE The pulmonic valve is not well visualized. Doppler and Color Flow revealed no pulmonic valvular regur gitation. GREAT VESSELS The aortic root is normal in size. The IVC is normal in size and collapses >50% with inspiration. PERICARDIAL EFFUSION There is no evidence of significant pericardial effusion. Critical Notification Critical Value: No <Conclusion> The left ventricle is normal size. The left ventricular systolic function is normal and the ejection fraction is within normal range. The Ejection Fraction is 50-55%. There is mild to moderate concentric left ventricular hypertrophy. Normal appearance of a prosthetic aortic valve. There are normal prosthetic aortic valve gradients. Doppler and Color Flow revealed trace mitral valve regurgitation. Doppler and Color Flow revealed trace tricuspid regurgitation. Signed by : Aguila Rosa MD Electronically Approved : 09/19/2018 15:01:28
[2018-09-19 15:35] VITALS: BP 133/53
--- NOTE | 2018-09-19 16:38 | RAD ---
CTA of the chest with contrast, 09/19/2018: HISTORY: Shortness of breath, pneumonia Multidetector CT imaging was performed following an IV bolus injection of iodinated contrast material. Multiplanar reconstructions were produced including coronal and sagittal MIP images. The central pulmonary arteries are well opacified. Delineation of the pulmonary arteries, particularly in the lower lobes was compromised by patient respiratory motion artifact. No filling defects are seen in the central pulmonary arteries to suggest pulmonary emboli. An aortic valvular prosthesis is in place. There is moderate calcific plaquing of the thoracic aorta and its branches without evidence of aneurysm or dissection. Scattered coronary artery calcifications are present. The heart is generally enlarged. There are precarinal and subcarinal lymph nodes of borderline size. There are granulomatous calcifications at the left hilum and in the left lung. Evaluation of the lung parenchyma is compromised by the patient respiratory motion artifact. There are mild tree-in-bud type opacities in the right middle lobe. There are scattered linear opacities in both lungs suggesting scarring and/or minimal atelectasis. No pleural fluid is evident. There is mild bilateral renal cortical scarring. Moderate scattered degenerative changes are present in the spine. Incidental note is made of a 11 mm nodule in the medial left breast. IMPRESSION: 1. No CT evidence of central pulmonary emboli, although delineation of the basilar pulmonary arteries is compromised by patient history motion artifact. 2. 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 3. Calcific plaquing of the aorta and coronary arteries 4. Mediastinal lymph nodes of borderline size. 5. Mild tree-in-bud opacities in the right middle lobe, likely on an inflammatory basis. 6. Small left breast nodule. Diagnostic mammography is suggested, if not already performed elsewhere. PQRS Compliance Statement: One or more of the following individualized dose reduction techniques were utilized for this examination: 1. Automated exposure control 2. Adjustment of the mA and/or kV according to patient size 3. Use of iterative reconstruction technique Electronically signed by: Eduardo Schroeder MD (09/19/2018 4:33 PM) [facility]
[2018-09-19] MEDS: ASPIRIN ENTERIC COATED 81 MG TABLET.DR. PO SCH (17:09)
[2018-09-19 19:00] VITALS: BP 135/63
[2018-09-19] MEDS: ATORVASTATIN CALCIUM 20 MG TABLET PO SCH (21:00)
[2018-09-19] MEDS ORDERED: SIMVASTATIN 40 MG TABLET. PO SCH (21:00)
[2018-09-19] MEDS: DOXYCYCLINE HYCLATE 100 MG TABLET PO SCH (21:38)
[2018-09-19] MEDS: traZODone 50 MG TABLET. PO SCH (21:39)
[2018-09-19] MEDS: ATORVASTATIN CALCIUM 40 MG TABLET. PO SCH (21:39)
[2018-09-19] MEDS: SENNOSIDES/DOCUSATE 8.6/50MG TABLET. PO SCH (21:39)
[2018-09-19] MEDS: PANTOPRAZOLE 40 MG TABLET.DR. PO SCH (21:39)
[2018-09-19 23:00] VITALS: BP 100/55
[2018-09-20 03:00] VITALS: BP 115/59
[2018-09-20 05:46] LABS: BASO % 0 % (0-3); EOS % 0 % (0-3); HEMATOCRIT 38.1 % (36.0-47.0); HEMOGLOBIN 12.4 g/dL (12.0-15.5); LYMPH # 0.8 x10^3/uL (1.0-4.8); LYMPH % 17 % (24-48); MEAN CORPUSCULAR HEMOGLOBIN 29 pg (25-35); MEAN CORPUSCULAR HGB CONC 33 g/dL (31-37); MEAN CORPUSCULAR VOLUME 89 fL (79-100); MONO # 1.1 x10^3/uL (0.0-1.1); MONO % 24 % (0-9); NEUT # 2.8 x10^3uL (1.8-7.7); NEUT % 59 % (31-73); PLATELET COUNT 335 x10^3/uL (140-400); RED CELL DISTRIBUTION WIDTH 15.3 % (11.5-14.5); WHITE BLOOD COUNT 4.7 x10^3/uL (4.0-11.0)
[2018-09-20 06:08] LABS: ALBUMIN 3.3 g/dL (3.4-5.0); ALBUMIN/GLOBULIN RATIO 0.8 (1.0-1.7); CALCIUM 9.5 mg/dL (8.5-10.1); CREATININE 1.6 mg/dL (0.6-1.0); GFR 30.6; POTASSIUM 4.3 mmol/L (3.5-5.1); TOTAL BILIRUBIN 0.3 mg/dL (0.2-1.0); TOTAL PROTEIN 7.2 g/dL (6.4-8.2)
[2018-09-20] MEDS: IPRATRPIUM/ALBUTEROL 0.5/2.5MG 3 ML NEBU. NEB SCH ×5 (07:11→22:00)
[2018-09-20] MEDS: BUDESONIDE 0.5 MG/2 ML NEBU. NEB SCH ×2 (07:11→19:00)
[2018-09-20 07:30] VITALS: BP 138/64
[2018-09-20 07:57] LABS: % BANDS 8 % (0-9); % LYMPHS 25 % (24-48); % MONOS 23 % (0-10); % SEGS 44 % (35-66)
[2018-09-20 07:58] LABS: PLT ESTIMATE ADEQUATE (ADEQUATE)
--- NOTE | 2018-09-20 08:11 | PDOC ---
PULMONARY PROGRESS NOTES Subjective on 02, sob better, has cough, has nasal congestion Vitals Vital Signs Date Time Temp Pulse Resp B/P (MAP) Pulse Ox O2 Delivery O2 Flow Rate FiO2 09/20/18 07:11 96 BiPAP/CPAP 09/20/18 03:00 97.4 72 22 115/59 (77) 97.4 09/19/18 23:00 3.0 ROS: No Nausea General: Alert HEENT: Other (nc at perrl ) Lungs: Wheezing, Other (limited volume) Cardiovascular: S1, S2 Abdomen: Soft, Non-tender Neuro Exam: Alert Extremities: No Edema Skin: Warm Labs Laboratory Tests Test 09/18/18 18:45 09/18/18 18:48 09/18/18 19:05 09/18/18 19:10 Prothrombin Time 14.4 SEC (11.7-14.0) Prothromb Time International Ratio 1.2 (0.8-1.1) White Blood Count 6.5 x10^3/uL (4.0-11.0) Red Blood Count 4.80 x10^6/uL (3.50-5.40) Hemoglobin 13.9 g/dL (12.0-15.5) Hematocrit 42.6 % (36.0-47.0) Mean Corpuscular Volume 89 fL (79-100) Mean Corpuscular Hemoglobin 29 pg (25-35) Mean Corpuscular Hemoglobin Concent 33 g/dL (31-37) Red Cell Distribution Width 15.0 % (11.5-14.5) Platelet Count 423 x10^3/uL (140-400) Neutrophils (%) (Auto) 66 % (31-73) Lymphocytes (%) (Auto) 17 % (24-48) Monocytes (%) (Auto) 15 % (0-9) Eosinophils (%) (Auto) 1 % (0-3) Basophils (%) (Auto) 1 % (0-3) Neutrophils # (Auto) 4.3 x10^3uL (1.8-7.7) Lymphocytes # (Auto) 1.1 x10^3/uL (1.0-4.8) Monocytes # (Auto) 1.0 x10^3/uL (0.0-1.1) Eosinophils # (Auto) 0.1 x10^3/uL (0.0-0.7) Basophils # (Auto) 0.1 x10^3/uL (0.0-0.2) D-Dimer (Marie) 0.57 ug/mlFEU (0.00-0.50) Sodium Level 142 mmol/L (136-145) Potassium Level 3.8 mmol/L (3.5-5.1) Chloride Level 100 mmol/L (98-107) Carbon Dioxide Level 34 mmol/L (21-32) Anion Gap 8 (6-14) Blood Urea Nitrogen 28 mg/dL (7-20) Creatinine 1.2 mg/dL (0.6-1.0) Estimated GFR (Cockcroft-Gault) 42.6 BUN/Creatinine Ratio 23 (6-20) Glucose Level 155 mg/dL (70-99) Lactic Acid Level 1.3 mmol/L (0.4-2.0) Calcium Level 9.6 mg/dL (8.5-10.1) Total Bilirubin 0.4 mg/dL (0.2-1.0) Aspartate Amino Transf (AST/SGOT) 15 U/L (15-37) Alanine Aminotransferase (ALT/SGPT) 14 U/L (14-59) Alkaline Phosphatase 88 U/L (46-116) Troponin I Quantitative < 0.017 ng/mL (0.000-0.055) YO-Oer-V-Type Natriuretic Peptide 7921 pg/mL (0-449) Total Protein 8.8 g/dL (6.4-8.2) Albumin 4.1 g/dL (3.4-5.0) Albumin/Globulin Ratio 0.9 (1.0-1.7) Influenza Type A Antigen Negative (NEGATIVE) Influenza Type B Antigen Negative (NEGATIVE) Urine Collection Type U cath Urine Color Yellow Urine Clarity Clear Urine pH 5.5 Urine Specific [place] 1.025 Urine Protein 100 mg/dL (NEG-TRACE) Urine Glucose (UA) Negative mg/dL (NEG) Urine Ketones (Stick) 15 mg/dL (NEG) Urine Blood Negative (NEG) Urine Nitrite Negative (NEG) Urine Bilirubin Small (NEG) Urine Urobilinogen Dipstick 1.0 mg/dL (0.2 mg/dL) Urine Leukocyte Esterase Negative (NEG) Urine RBC Occ /HPF (0-2) Urine WBC 0 /HPF (0-4) Urine Squamous Epithelial Cells Occ /LPF Urine Amorphous Sediment Present /HPF Urine Bacteria 0 /HPF (0-FEW) Urine Hyaline Casts Moderate /HPF Urine Mucus Mod /LPF Test 09/19/18 00:21 09/19/18 00:33 09/19/18 05:00 09/19/18 07:50 O2 Saturation 95 % (92-99) 97 % (92-99) Arterial Blood pH 7.31 (7.35-7.45) 7.35 (7.35-7.45) Arterial Blood pCO2 at Patient Temp 64 mmHg (35-46) 53 mmHg (35-46) Arterial Blood pO2 at Patient Temp 81 mmHg (65-108) 91 mmHg (65-108) Arterial Blood HCO3 31 mmol/L (21-28) 29 mmol/L (21-28) Arterial Blood Base Excess 3 mmol/L (-3-3) 2 mmol/L (-3-3) FiO2 32 32 Glucose (Fingerstick) 149 mg/dL (70-99) White Blood Count 4.8 x10^3/uL (4.0-11.0) Red Blood Count 4.50 x10^6/uL (3.50-5.40) Hemoglobin 13.1 g/dL (12.0-15.5) Hematocrit 39.7 % (36.0-47.0) Mean Corpuscular Volume 88 fL (79-100) Mean Corpuscular Hemoglobin 29 pg (25-35) Mean Corpuscular Hemoglobin Concent 33 g/dL (31-37) Red Cell Distribution Width 14.7 % (11.5-14.5) Platelet Count 329 x10^3/uL (140-400) Neutrophils (%) (Auto) 74 % (31-73) Lymphocytes (%) (Auto) 12 % (24-48) Monocytes (%) (Auto) 14 % (0-9) Eosinophils (%) (Auto) 0 % (0-3) Basophils (%) (Auto) 1 % (0-3) Neutrophils # (Auto) 3.6 x10^3uL (1.8-7.7) Lymphocytes # (Auto) 0.6 x10^3/uL (1.0-4.8) Monocytes # (Auto) 0.7 x10^3/uL (0.0-1.1) Eosinophils # (Auto) 0.0 x10^3/uL (0.0-0.7) Basophils # (Auto) 0.0 x10^3/uL (0.0-0.2) Sodium Level 143 mmol/L (136-145) Potassium Level 3.3 mmol/L (3.5-5.1) Chloride Level 100 mmol/L (98-107) Carbon Dioxide Level 32 mmol/L (21-32) Anion Gap 11 (6-14) Blood Urea Nitrogen 29 mg/dL (7-20) Creatinine 1.1 mg/dL (0.6-1.0) Estimated GFR (Cockcroft-Gault) 47.1 BUN/Creatinine Ratio 26 (6-20) Glucose Level 145 mg/dL (70-99) Calcium Level 9.2 mg/dL (8.5-10.1) Magnesium Level 2.0 mg/dL (1.8-2.4) Total Bilirubin 0.3 mg/dL (0.2-1.0) Aspartate Amino Transf (AST/SGOT) 14 U/L (15-37) Alanine Aminotransferase (ALT/SGPT) 13 U/L (14-59) Alkaline Phosphatase 73 U/L (46-116) Total Protein 7.7 g/dL (6.4-8.2) Albumin 3.7 g/dL (3.4-5.0) Albumin/Globulin Ratio 0.9 (1.0-1.7) Triglycerides Level 94 mg/dL (0-150) Cholesterol Level 173 mg/dL (0-200) LDL Cholesterol, Calculated 106 mg/dL (0-100) VLDL Cholesterol, Calculated 19 mg/dL (0-40) Non-HDL Cholesterol Calculated 125 mg/dL (0-129) HDL Cholesterol 48 mg/dL (40-60) Cholesterol/HDL Ratio 3.6 Thyroid Stimulating Hormone (TSH) 0.736 uIU/mL (0.358-3.74) Test 09/20/18 05:30 White Blood Count 4.7 x10^3/uL (4.0-11.0) Red Blood Count 4.30 x10^6/uL (3.50-5.40) Hemoglobin 12.4 g/dL (12.0-15.5) Hematocrit 38.1 % (36.0-47.0) Mean Corpuscular Volume 89 fL (79-100) Mean Corpuscular Hemoglobin 29 pg (25-35) Mean Corpuscular Hemoglobin Concent 33 g/dL (31-37) Red Cell Distribution Width 15.3 % (11.5-14.5) Platelet Count 335 x10^3/uL (140-400) Neutrophils (%) (Auto) 59 % (31-73) Lymphocytes (%) (Auto) 17 % (24-48) Monocytes (%) (Auto) 24 % (0-9) Eosinophils (%) (Auto) 0 % (0-3) Basophils (%) (Auto) 0 % (0-3) Neutrophils # (Auto) 2.8 x10^3uL (1.8-7.7) Lymphocytes # (Auto) 0.8 x10^3/uL (1.0-4.8) Monocytes # (Auto) 1.1 x10^3/uL (0.0-1.1) Eosinophils # (Auto) 0.0 x10^3/uL (0.0-0.7) Basophils # (Auto) 0.0 x10^3/uL (0.0-0.2) Segmented Neutrophils % 44 % (35-66) Band Neutrophils % 8 % (0-9) Lymphocytes % 25 % (24-48) Monocytes % 23 % (0-10) Platelet Estimate Adequate (ADEQUATE) Sodium Level 142 mmol/L (136-145) Potassium Level 4.3 mmol/L (3.5-5.1) Chloride Level 103 mmol/L (98-107) Carbon Dioxide Level 34 mmol/L (21-32) Anion Gap 5 (6-14) Blood Urea Nitrogen 49 mg/dL (7-20) Creatinine 1.6 mg/dL (0.6-1.0) Estimated GFR (Cockcroft-Gault) 30.6 BUN/Creatinine Ratio 31 (6-20) Glucose Level 131 mg/dL (70-99) Calcium Level 9.5 mg/dL (8.5-10.1) Total Bilirubin 0.3 mg/dL (0.2-1.0) Aspartate Amino Transf (AST/SGOT) 13 U/L (15-37) Alanine Aminotransferase (ALT/SGPT) 13 U/L (14-59) Alkaline Phosphatase 65 U/L (46-116) Total Protein 7.2 g/dL (6.4-8.2) Albumin 3.3 g/dL (3.4-5.0) Albumin/Globulin Ratio 0.8 (1.0-1.7) Laboratory Tests Test 09/20/18 05:30 White Blood Count 4.7 x10^3/uL (4.0-11.0) Red Blood Count 4.30 x10^6/uL (3.50-5.40) Hemoglobin 12.4 g/dL (12.0-15.5) Hematocrit 38.1 % (36.0-47.0) Mean Corpuscular Volume 89 fL (79-100) Mean Corpuscular Hemoglobin 29 pg (25-35) Mean Corpuscular Hemoglobin Concent 33 g/dL (31-37) Red Cell Distribution Width 15.3 % (11.5-14.5) Platelet Count 335 x10^3/uL (140-400) Neutrophils (%) (Auto) 59 % (31-73) Lymphocytes (%) (Auto) 17 % (24-48) Monocytes (%) (Auto) 24 % (0-9) Eosinophils (%) (Auto) 0 % (0-3) Basophils (%) (Auto) 0 % (0-3) Neutrophils # (Auto) 2.8 x10^3uL (1.8-7.7) Lymphocytes # (Auto) 0.8 x10^3/uL (1.0-4.8) Monocytes # (Auto) 1.1 x10^3/uL (0.0-1.1) Eosinophils # (Auto) 0.0 x10^3/uL (0.0-0.7) Basophils # (Auto) 0.0 x10^3/uL (0.0-0.2) Segmented Neutrophils % 44 % (35-66) Band Neutrophils % 8 % (0-9) Lymphocytes % 25 % (24-48) Monocytes % 23 % (0-10) Platelet Estimate Adequate (ADEQUATE) Sodium Level 142 mmol/L (136-145) Potassium Level 4.3 mmol/L (3.5-5.1) Chloride Level 103 mmol/L (98-107) Carbon Dioxide Level 34 mmol/L (21-32) Anion Gap 5 (6-14) Blood Urea Nitrogen 49 mg/dL (7-20) Creatinine 1.6 mg/dL (0.6-1.0) Estimated GFR (Cockcroft-Gault) 30.6 BUN/Creatinine Ratio 31 (6-20) Glucose Level 131 mg/dL (70-99) Calcium Level 9.5 mg/dL (8.5-10.1) Total Bilirubin 0.3 mg/dL (0.2-1.0) Aspartate Amino Transf (AST/SGOT) 13 U/L (15-37) Alanine Aminotransferase (ALT/SGPT) 13 U/L (14-59) Alkaline Phosphatase 65 U/L (46-116) Total Protein 7.2 g/dL (6.4-8.2) Albumin 3.3 g/dL (3.4-5.0) Albumin/Globulin Ratio 0.8 (1.0-1.7) Medications Active Scripts Medications Dose Route/Sig Max Daily Dose Days Date Category Losartan Potassium 100 Mg Tablet 100 Mg PO DAILY 02/23/18 Reported Tums (Calcium Carbonate) 200 Mg Tab.chew 500 Mg PO BIDWMEALS 02/23/18 Reported Tums (Calcium Carbonate) 300 Mg Tab.chew 300 Mg PO 02/23/18 Reported Miralax (Polyethylene Glycol 3350) 17 Gm Powd.pack 1 Packet PO DAILY 02/23/18 Reported Senna Plus Tablet (Sennosides/Docusate Sodium) 1 Each Tablet 2 Each PO QHS 02/23/18 Reported Women's Laxative (Bisacodyl) 5 Mg Tablet 4 Tab PO UD 02/23/18 Reported Dulcolax (Bisacodyl) 5 Mg Tablet.dr 5 Mg PO PRN DAILY PRN 02/23/18 Reported Dulcolax (Bisacodyl) 5 Mg Tablet.dr 4 Tab PO ONCE 02/23/18 Reported Mintox Plus Tablet Chewable (Mag Hydrox/Al Hydrox/Simeth) 1 Each Tab.chew 2 Each PO Q3HRS PRN 02/23/18 Reported Docusate Sodium 100 Mg Capsule 1 Cap PO BID PRN 02/23/18 Reported Tylenol (Acetaminophen) 325 Mg Tablet 650 Mg PO Q6HRS PRN 02/23/18 Reported Atorvastatin Calcium 20 Mg Tablet 1 Tab PO HS 02/23/18 Reported Acidophilus-Pectin Capsule (Lactobacillus Acidophilus/Pect) 1 Each Capsule 1 Each PO BIDWMEALS 02/23/18 Reported Omeprazole 40 Mg Capsule.dr Pillai Cap PO QHS 02/23/18 Reported Vitamin D2 (Ergocalciferol (Vitamin D2)) 50,000 Unit Capsule 1 Cap PO QSA 02/16/18 Reported Zolpidem Tartrate 5 Mg Tablet 5 Mg PO PRN QHS PRN 02/16/18 Reported Simvastatin 40 Mg Tablet 1 Tab PO QHS 02/16/18 Reported Oxybutynin Chloride 5 Mg Tablet 1 Tab PO BID 02/16/18 Reported Omeprazole 20 Mg Capsule.dr Pillai Cap PO HS 02/16/18 Reported Warfarin Sodium 5 Mg Tablet 1 Tab PO DAILY 03/07/16 Reported Furosemide 40 Mg Tablet 40 Mg PO PRN DAILY PRN 08/09/15 Reported Trazodone Hcl 50 Mg Tablet 50 Mg PO HS 08/09/15 Reported Amlodipine Besylate 5 Mg Tablet 5 Mg PO DAILY 08/09/15 Reported Meloxicam 7.5 Mg Tablet 7.5 Mg PO DAILY 08/09/15 Reported Atenolol 100 Mg Tablet 100 Mg PO DAILY 08/09/15 Reported Diovan (Valsartan) 320 Mg Tablet 320 Mg PO DAILY 08/09/[address] 1. No CT evidence of central pulmonary emboli, although delineation of the basilar pulmonary arteries is compromised by patient history motion artifact. 2. 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 3. Calcific plaquing of the aorta and coronary arteries 4. Mediastinal lymph nodes of borderline size. 5. Mild tree-in-bud opacities in the right middle lobe, likely on an inflammatory basis. 6. Small left breast nodule. Diagnostic mammography is suggested, if not already performed elsewhere. Impression . IMPRESSION: 1. Acute hypoxic and hypercapnic respiratory failure, likely secondary to acute exacerbation of chronic obstructive pulmonary disease and triggered by lower respiratory tract infection. 2. Low-grade fever, resolved. Possible acute bronchitis versus mild right upper lobe pneumonia. 3. D-dimer mildly elevated. cta, no pe 4. Mild renal insufficiency. 5. Clinically unlikely congestive heart failure. 6. allergic rhinitis Plan . RECOMMENDATIONS: 1. We will continue present oxygen. 2. empiric antibiotic. 3. DuoNeb. ICS 4. Consider holding atenolol until bronchospasm is resolved. 5. cont steroids. prednisone 40 mg daily, no dose change. 7. CTA no pe, ? pneumonia 8. Obtain an echocardiogram. 9. Optimization of blood pressure per PCP. 10. add flonase 11. ct showed breast nodule, defer paige to primary Discussed with the patient's daughter and pt, rn MURALI MIRANDA MD Sep 20, 2018 08:11
--- NOTE | 2018-09-20 09:20 | PDOC ---
PROGRESS NOTES Chief Complaint Chief Complaint acute hypoxic respiratory failure COPD with acute exacerbation, steroids, nebs, abx CHF, acute diastolic failure, better with IV lasix, will continue accelerated hypertension hypercarbia, poor volume breaths, likely COPD, nebs prior CVA, some residual weakness, some early vascular dementia History of Present Illness History of Present Illness feels improved very weak no cough no sputum some wheeze today Vitals Vitals Vital Signs Date Time Temp Pulse Resp B/P (MAP) Pulse Ox O2 Delivery O2 Flow Rate FiO2 09/20/18 07:30 97.9 71 16 138/64 (88) 99 Nasal Cannula 3.0 97.9 Physical Exam General: Alert, Oriented X3, Cooperative, No acute distress Heart: Regular rate (SR), Normal S1, Normal S2, Other (3/6 systolic murmur to ELLIE border) Lungs: Other (limited volume) Abdomen: Soft, No tenderness Extremities: No cyanosis, No edema Skin: No breakdown, No significant lesion Labs LABS Laboratory Tests Test 09/20/18 05:30 White Blood Count 4.7 x10^3/uL (4.0-11.0) Red Blood Count 4.30 x10^6/uL (3.50-5.40) Hemoglobin 12.4 g/dL (12.0-15.5) Hematocrit 38.1 % (36.0-47.0) Mean Corpuscular Volume 89 fL (79-100) Mean Corpuscular Hemoglobin 29 pg (25-35) Mean Corpuscular Hemoglobin Concent 33 g/dL (31-37) Red Cell Distribution Width 15.3 % (11.5-14.5) Platelet Count 335 x10^3/uL (140-400) Neutrophils (%) (Auto) 59 % (31-73) Lymphocytes (%) (Auto) 17 % (24-48) Monocytes (%) (Auto) 24 % (0-9) Eosinophils (%) (Auto) 0 % (0-3) Basophils (%) (Auto) 0 % (0-3) Neutrophils # (Auto) 2.8 x10^3uL (1.8-7.7) Lymphocytes # (Auto) 0.8 x10^3/uL (1.0-4.8) Monocytes # (Auto) 1.1 x10^3/uL (0.0-1.1) Eosinophils # (Auto) 0.0 x10^3/uL (0.0-0.7) Basophils # (Auto) 0.0 x10^3/uL (0.0-0.2) Segmented Neutrophils % 44 % (35-66) Band Neutrophils % 8 % (0-9) Lymphocytes % 25 % (24-48) Monocytes % 23 % (0-10) Platelet Estimate Adequate (ADEQUATE) Sodium Level 142 mmol/L (136-145) Potassium Level 4.3 mmol/L (3.5-5.1) Chloride Level 103 mmol/L (98-107) Carbon Dioxide Level 34 mmol/L (21-32) Anion Gap 5 (6-14) Blood Urea Nitrogen 49 mg/dL (7-20) Creatinine 1.6 mg/dL (0.6-1.0) Estimated GFR (Cockcroft-Gault) 30.6 BUN/Creatinine Ratio 31 (6-20) Glucose Level 131 mg/dL (70-99) Calcium Level 9.5 mg/dL (8.5-10.1) Total Bilirubin 0.3 mg/dL (0.2-1.0) Aspartate Amino Transf (AST/SGOT) 13 U/L (15-37) Alanine Aminotransferase (ALT/SGPT) 13 U/L (14-59) Alkaline Phosphatase 65 U/L (46-116) Total Protein 7.2 g/dL (6.4-8.2) Albumin 3.3 g/dL (3.4-5.0) Albumin/Globulin Ratio 0.8 (1.0-1.7) Review of Systems Review of Systems no n.v.d Assessment and Plan Assessmemt and Plan Problems Medical Problems: (1) CHF (congestive heart failure) Status: Acute (2) Hypertensive urgency Status: Acute (3) Hypoxia Status: Acute Comment Review of Relevant I have reviewed the following items junie (where applicable) has been applied. Labs Laboratory Tests Test 09/18/18 18:45 09/18/18 18:48 09/18/18 19:05 09/18/18 19:10 Prothrombin Time 14.4 SEC (11.7-14.0) Prothromb Time International Ratio 1.2 (0.8-1.1) White Blood Count 6.5 x10^3/uL (4.0-11.0) Red Blood Count 4.80 x10^6/uL (3.50-5.40) Hemoglobin 13.9 g/dL (12.0-15.5) Hematocrit 42.6 % (36.0-47.0) Mean Corpuscular Volume 89 fL (79-100) Mean Corpuscular Hemoglobin 29 pg (25-35) Mean Corpuscular Hemoglobin Concent 33 g/dL (31-37) Red Cell Distribution Width 15.0 % (11.5-14.5) Platelet Count 423 x10^3/uL (140-400) Neutrophils (%) (Auto) 66 % (31-73) Lymphocytes (%) (Auto) 17 % (24-48) Monocytes (%) (Auto) 15 % (0-9) Eosinophils (%) (Auto) 1 % (0-3) Basophils (%) (Auto) 1 % (0-3) Neutrophils # (Auto) 4.3 x10^3uL (1.8-7.7) Lymphocytes # (Auto) 1.1 x10^3/uL (1.0-4.8) Monocytes # (Auto) 1.0 x10^3/uL (0.0-1.1) Eosinophils # (Auto) 0.1 x10^3/uL (0.0-0.7) Basophils # (Auto) 0.1 x10^3/uL (0.0-0.2) D-Dimer (Marie) 0.57 ug/mlFEU (0.00-0.50) Sodium Level 142 mmol/L (136-145) Potassium Level 3.8 mmol/L (3.5-5.1) Chloride Level 100 mmol/L (98-107) Carbon Dioxide Level 34 mmol/L (21-32) Anion Gap 8 (6-14) Blood Urea Nitrogen 28 mg/dL (7-20) Creatinine 1.2 mg/dL (0.6-1.0) Estimated GFR (Cockcroft-Gault) 42.6 BUN/Creatinine Ratio 23 (6-20) Glucose Level 155 mg/dL (70-99) Lactic Acid Level 1.3 mmol/L (0.4-2.0) Calcium Level 9.6 mg/dL (8.5-10.1) Total Bilirubin 0.4 mg/dL (0.2-1.0) Aspartate Amino Transf (AST/SGOT) 15 U/L (15-37) Alanine Aminotransferase (ALT/SGPT) 14 U/L (14-59) Alkaline Phosphatase 88 U/L (46-116) Troponin I Quantitative < 0.017 ng/mL (0.000-0.055) WQ-Daa-M-Type Natriuretic Peptide 7921 pg/mL (0-449) Total Protein 8.8 g/dL (6.4-8.2) Albumin 4.1 g/dL (3.4-5.0) Albumin/Globulin Ratio 0.9 (1.0-1.7) Influenza Type A Antigen Negative (NEGATIVE) Influenza Type B Antigen Negative (NEGATIVE) Urine Collection Type U cath Urine Color Yellow Urine Clarity Clear Urine pH 5.5 Urine Specific Bryant 1.025 Urine Protein 100 mg/dL (NEG-TRACE) Urine Glucose (UA) Negative mg/dL (NEG) Urine Ketones (Stick) 15 mg/dL (NEG) Urine Blood Negative (NEG) Urine Nitrite Negative (NEG) Urine Bilirubin Small (NEG) Urine Urobilinogen Dipstick 1.0 mg/dL (0.2 mg/dL) Urine Leukocyte Esterase Negative (NEG) Urine RBC Occ /HPF (0-2) Urine WBC 0 /HPF (0-4) Urine Squamous Epithelial Cells Occ /LPF Urine Amorphous Sediment Present /HPF Urine Bacteria 0 /HPF (0-FEW) Urine Hyaline Casts Moderate /HPF Urine Mucus Mod /LPF Test 09/19/18 00:21 09/19/18 00:33 09/19/18 05:00 09/19/18 07:50 O2 Saturation 95 % (92-99) 97 % (92-99) Arterial Blood pH 7.31 (7.35-7.45) 7.35 (7.35-7.45) Arterial Blood pCO2 at Patient Temp 64 mmHg (35-46) 53 mmHg (35-46) Arterial Blood pO2 at Patient Temp 81 mmHg (65-108) 91 mmHg (65-108) Arterial Blood HCO3 31 mmol/L (21-28) 29 mmol/L (21-28) Arterial Blood Base Excess 3 mmol/L (-3-3) 2 mmol/L (-3-3) FiO2 32 32 Glucose (Fingerstick) 149 mg/dL (70-99) White Blood Count 4.8 x10^3/uL (4.0-11.0) Red Blood Count 4.50 x10^6/uL (3.50-5.40) Hemoglobin 13.1 g/dL (12.0-15.5) Hematocrit 39.7 % (36.0-47.0) Mean Corpuscular Volume 88 fL (79-100) Mean Corpuscular Hemoglobin 29 pg (25-35) Mean Corpuscular Hemoglobin Concent 33 g/dL (31-37) Red Cell Distribution Width 14.7 % (11.5-14.5) Platelet Count 329 x10^3/uL (140-400) Neutrophils (%) (Auto) 74 % (31-73) Lymphocytes (%) (Auto) 12 % (24-48) Monocytes (%) (Auto) 14 % (0-9) Eosinophils (%) (Auto) 0 % (0-3) Basophils (%) (Auto) 1 % (0-3) Neutrophils # (Auto) 3.6 x10^3uL (1.8-7.7) Lymphocytes # (Auto) 0.6 x10^3/uL (1.0-4.8) Monocytes # (Auto) 0.7 x10^3/uL (0.0-1.1) Eosinophils # (Auto) 0.0 x10^3/uL (0.0-0.7) Basophils # (Auto) 0.0 x10^3/uL (0.0-0.2) Sodium Level 143 mmol/L (136-145) Potassium Level 3.3 mmol/L (3.5-5.1) Chloride Level 100 mmol/L (98-107) Carbon Dioxide Level 32 mmol/L (21-32) Anion Gap 11 (6-14) Blood Urea Nitrogen 29 mg/dL (7-20) Creatinine 1.1 mg/dL (0.6-1.0) Estimated GFR (Cockcroft-Gault) 47.1 BUN/Creatinine Ratio 26 (6-20) Glucose Level 145 mg/dL (70-99) Calcium Level 9.2 mg/dL (8.5-10.1) Magnesium Level 2.0 mg/dL (1.8-2.4) Total Bilirubin 0.3 mg/dL (0.2-1.0) Aspartate Amino Transf (AST/SGOT) 14 U/L (15-37) Alanine Aminotransferase (ALT/SGPT) 13 U/L (14-59) Alkaline Phosphatase 73 U/L (46-116) Total Protein 7.7 g/dL (6.4-8.2) Albumin 3.7 g/dL (3.4-5.0) Albumin/Globulin Ratio 0.9 (1.0-1.7) Triglycerides Level 94 mg/dL (0-150) Cholesterol Level 173 mg/dL (0-200) LDL Cholesterol, Calculated 106 mg/dL (0-100) VLDL Cholesterol, Calculated 19 mg/dL (0-40) Non-HDL Cholesterol Calculated 125 mg/dL (0-129) HDL Cholesterol 48 mg/dL (40-60) Cholesterol/HDL Ratio 3.6 Thyroid Stimulating Hormone (TSH) 0.736 uIU/mL (0.358-3.74) Test 09/20/18 05:30 White Blood Count 4.7 x10^3/uL (4.0-11.0) Red Blood Count 4.30 x10^6/uL (3.50-5.40) Hemoglobin 12.4 g/dL (12.0-15.5) Hematocrit 38.1 % (36.0-47.0) Mean Corpuscular Volume 89 fL (79-100) Mean Corpuscular Hemoglobin 29 pg (25-35) Mean Corpuscular Hemoglobin Concent 33 g/dL (31-37) Red Cell Distribution Width 15.3 % (11.5-14.5) Platelet Count 335 x10^3/uL (140-400) Neutrophils (%) (Auto) 59 % (31-73) Lymphocytes (%) (Auto) 17 % (24-48) Monocytes (%) (Auto) 24 % (0-9) Eosinophils (%) (Auto) 0 % (0-3) Basophils (%) (Auto) 0 % (0-3) Neutrophils # (Auto) 2.8 x10^3uL (1.8-7.7) Lymphocytes # (Auto) 0.8 x10^3/uL (1.0-4.8) Monocytes # (Auto) 1.1 x10^3/uL (0.0-1.1) Eosinophils # (Auto) 0.0 x10^3/uL (0.0-0.7) Basophils # (Auto) 0.0 x10^3/uL (0.0-0.2) Segmented Neutrophils % 44 % (35-66) Band Neutrophils % 8 % (0-9) Lymphocytes % 25 % (24-48) Monocytes % 23 % (0-10) Platelet Estimate Adequate (ADEQUATE) Sodium Level 142 mmol/L (136-145) Potassium Level 4.3 mmol/L (3.5-5.1) Chloride Level 103 mmol/L (98-107) Carbon Dioxide Level 34 mmol/L (21-32) Anion Gap 5 (6-14) Blood Urea Nitrogen 49 mg/dL (7-20) Creatinine 1.6 mg/dL (0.6-1.0) Estimated GFR (Cockcroft-Gault) 30.6 BUN/Creatinine Ratio 31 (6-20) Glucose Level 131 mg/dL (70-99) Calcium Level 9.5 mg/dL (8.5-10.1) Total Bilirubin 0.3 mg/dL (0.2-1.0) Aspartate Amino Transf (AST/SGOT) 13 U/L (15-37) Alanine Aminotransferase (ALT/SGPT) 13 U/L (14-59) Alkaline Phosphatase 65 U/L (46-116) Total Protein 7.2 g/dL (6.4-8.2) Albumin 3.3 g/dL (3.4-5.0) Albumin/Globulin Ratio 0.8 (1.0-1.7) Laboratory Tests Test 09/20/18 05:30 White Blood Count 4.7 x10^3/uL (4.0-11.0) Red Blood Count 4.30 x10^6/uL (3.50-5.40) Hemoglobin 12.4 g/dL (12.0-15.5) Hematocrit 38.1 % (36.0-47.0) Mean Corpuscular Volume 89 fL (79-100) Mean Corpuscular Hemoglobin 29 pg (25-35) Mean Corpuscular Hemoglobin Concent 33 g/dL (31-37) Red Cell Distribution Width 15.3 % (11.5-14.5) Platelet Count 335 x10^3/uL (140-400) Neutrophils (%) (Auto) 59 % (31-73) Lymphocytes (%) (Auto) 17 % (24-48) Monocytes (%) (Auto) 24 % (0-9) Eosinophils (%) (Auto) 0 % (0-3) Basophils (%) (Auto) 0 % (0-3) Neutrophils # (Auto) 2.8 x10^3uL (1.8-7.7) Lymphocytes # (Auto) 0.8 x10^3/uL (1.0-4.8) Monocytes # (Auto) 1.1 x10^3/uL (0.0-1.1) Eosinophils # (Auto) 0.0 x10^3/uL (0.0-0.7) Basophils # (Auto) 0.0 x10^3/uL (0.0-0.2) Segmented Neutrophils % 44 % (35-66) Band Neutrophils % 8 % (0-9) Lymphocytes % 25 % (24-48) Monocytes % 23 % (0-10) Platelet Estimate Adequate (ADEQUATE) Sodium Level 142 mmol/L (136-145) Potassium Level 4.3 mmol/L (3.5-5.1) Chloride Level 103 mmol/L (98-107) Carbon Dioxide Level 34 mmol/L (21-32) Anion Gap 5 (6-14) Blood Urea Nitrogen 49 mg/dL (7-20) Creatinine 1.6 mg/dL (0.6-1.0) Estimated GFR (Cockcroft-Gault) 30.6 BUN/Creatinine Ratio 31 (6-20) Glucose Level 131 mg/dL (70-99) Calcium Level 9.5 mg/dL (8.5-10.1) Total Bilirubin 0.3 mg/dL (0.2-1.0) Aspartate Amino Transf (AST/SGOT) 13 U/L (15-37) Alanine Aminotransferase (ALT/SGPT) 13 U/L (14-59) Alkaline Phosphatase 65 U/L (46-116) Total Protein 7.2 g/dL (6.4-8.2) Albumin 3.3 g/dL (3.4-5.0) Albumin/Globulin Ratio 0.8 (1.0-1.7) Microbiology 09/18/18 Blood Culture - Preliminary, Resulted NO GROWTH AFTER 1 DAY Medications Current Medications Albuterol/ Ipratropium (Duoneb) 3 ml 1X ONCE NEB Last administered on 18:57; Start 09/18/18 at 18:45; Stop 09/18/18 at 18:51; Status DC Labetalol HCl (Normodyne Iv Push) 20 mg 1X ONCE IVP Last administered on at 19:00; Start 09/18/18 at 19:00; Stop 09/18/18 at 19:01; Status DC Furosemide (Lasix) 40 mg 1X ONCE IVP Last administered on 09/18/18at 20:45; Start 09/18/18 at 20:45; Stop 09/18/18 at 20:46; Status DC Albuterol/ Ipratropium (Duoneb) 3 ml Q4HRS W/A NEB Last administered on at 07:11; Start 09/18/18 at 22:00 Budesonide (Pulmicort) 0.5 mg RTBID NEB Last administered on 09/20/18 07:11; Start 09/19/18 at 08:00 Acetaminophen (Tylenol) 650 mg PRN Q6HRS PRN PO MILD PAIN / TEMP; Start at 21:15 Amlodipine Besylate (Norvasc) 5 mg DAILY PO Last administered on 09/19/18 09: 56; Start 09/19/18 at 09:00 Atorvastatin Calcium (Lipitor) 20 mg HS PO ; Start 09/18/18 at 22:00 Bisacodyl (Dulcolax Tab) 5 mg PRN DAILY PRN PO CONSTIPATION 2ND CHOICE; Start 09/18/18 at 21:15 Calcium Carbonate/ Glycine (Tums) 500 mg BIDWMEALS PO Last administered on 09/19at 17:09; Start 09/19/18 at 08:00 Docusate Sodium (Colace) 100 mg PRN BID PRN PO CONSTIPATION 1ST CHOICE; Start 09/18/18 at 21:15 Oxybutynin Chloride (Ditropan) 5 mg BID PO Last administered on 09/19/18at 21:39 ; Start 09/18/18 at 22:00 Senna/Docusate Sodium (Senna Plus) 2 tab QHS PO Last administered on 09/19/18at 21:39; Start 09/19/18 at 21:00 Trazodone HCl (Desyrel) 50 mg HS PO Last administered on 09/19/18at 21:39; Start 09/19/18 at 21:00 Zolpidem Tartrate (Ambien) 5 mg PRN QHS PRN PO INSOMNIA; Start 09/18/18 at 21: 15 Atenolol (Tenormin) 100 mg DAILY PO ; Start 09/19/18 at 09:00; Stop 09/19/18 at 10:27; Status DC Lactobacillus Rhamnosus (Culturelle) 1 cap BIDWMEALS PO Last administered on at 17:09; Start 09/19/18 at 08:00 Losartan Potassium (Cozaar) 100 mg DAILY PO Last administered on 09/19/18at 09: 54; Start 09/19/18 at 09:00 Al Hydroxide/Mg Hydroxide (Mylanta Plus Xs) 30 ml PRN Q3HRS PRN PO stomach upset Last administered on 09/19/18at 09:56; Start 09/18/18 at 21:15 Pantoprazole Sodium (Protonix) 40 mg QHS PO Last administered on 09/19/18at 21: 39; Start 09/18/18 at 22:00 Polyethylene Glycol (miraLAX PACKET) 17 gm DAILY PO ; Start 09/19/18 at 09:00 Simvastatin (Zocor) 40 mg QHS PO ; Start 09/19/18 at 21:00; Stop 09/19/18 at 21: 00; Status DC Furosemide (Lasix) 40 mg DAILY IVP Last administered on 09/19/18at 09:56; Start 09/19/18 at 09:00; Stop 09/19/18 at 10:32; Status DC Labetalol HCl (Normodyne Iv Push) 20 mg PRN Q2HR PRN IVP HYPERTENSION, SEE COMMENTS Last administered on 09/18/18at 23:42; Start 09/18/18 at 23:30 Albuterol/ Ipratropium (Duoneb) 3 ml 1X ONCE NEB ; Start 09/19/18 at 00:45; Stop 09/19/18 at 00:46; Status DC Albuterol/ Ipratropium (Duoneb) 3 ml 1X ONCE NEB Last administered on at 01:18; Start 09/19/18 at 01:15; Stop 09/19/18 at 01:16; Status DC Nitroglycerin (Nitro-Bid Oint) 1 inch 1X ONCE TP Last administered on at 01:36; Start 09/19/18 at 01:15; Stop 09/19/18 at 01:16; Status DC Lorazepam (Ativan) 0.5 mg PRN Q4HRS PRN IV ANXIETY / AGITATION Last administered on 09/19/18at 01:37; Start 09/19/18 at 01:15 Potassium Chloride (Klor-Con) 40 meq 1X ONCE PO Last administered on at 09:55; Start 09/19/18 at 07:00; Stop 09/19/18 at 07:01; Status DC Ceftriaxone Sodium (Rocephin) 1 gm Q24H IVP Last administered on 09/19/18at 13: 19; Start 09/19/18 at 11:00 Doxycycline Hyclate (Vibra-Tab) 100 mg BID PO Last administered on 09/19/18at 21 :38; Start 09/19/18 at 21:00 Doxycycline Hyclate (Vibra-Tab) 100 mg 1X ONCE PO Last administered on at 13:18; Start 09/19/18 at 10:30; Stop 09/19/18 at 10:31; Status DC Methylprednisolone Sodium Succinate (SOLU-Medrol 40MG VIAL) 40 mg 1X ONCE IV Last administered on 09/19/18at 13:18; Start 09/19/18 at 10:30; Stop 09/19/18 at 10:31; Status DC Prednisone (Prednisone) 40 mg DAILY PO ; Start 09/20/18 at 14:00 Sodium Chloride 500 ml @ 500 mls/hr 1X ONCE IV Last administered on at 10:38; Start 09/19/18 at 10:45; Stop 09/19/18 at 11:44; Status DC Iohexol (Omnipaque 350 Mg/ml) 90 ml 1X ONCE IV ; Start 09/19/18 at 10:45; Stop 09/19/18 at 10:46; Status DC Info (CONTRAST GIVEN -- Rx MONITORING) 1 each PRN DAILY PRN MC SEE COMMENTS; Start 09/19/18 at 10:45; Stop 09/21/18 at 10:44 Atorvastatin Calcium (Lipitor) 40 mg QHS PO Last administered on 09/19/18at 21: 39; Start 09/19/18 at 21:00 Aspirin (Ecotrin) 81 mg DAILYWBKFT PO Last administered on 09/19/18at 17:09; Start 09/19/18 at 15:00 Active Scripts Active Reported Losartan Potassium 100 Mg Tablet 100 Mg PO DAILY Tums (Calcium Carbonate) 200 Mg Tab.chew 500 Mg PO BIDWMEALS Tums (Calcium Carbonate) 300 Mg Tab.chew 300 Mg PO Miralax (Polyethylene Glycol 3350) 17 Gm Powd.pack 1 Packet PO DAILY Senna Plus Tablet (Sennosides/Docusate Sodium) 1 Each Tablet 2 Each PO QHS Women's Laxative (Bisacodyl) 5 Mg Tablet 4 Tab PO UD Dulcolax (Bisacodyl) 5 Mg Tablet.dr 5 Mg PO PRN DAILY PRN Dulcolax (Bisacodyl) 5 Mg Tablet.dr 4 Tab PO ONCE Mintox Plus Tablet Chewable (Mag Hydrox/Al Hydrox/Simeth) 1 Each Tab.chew 2 Each PO Q3HRS PRN Docusate Sodium 100 Mg Capsule 1 Cap PO BID PRN Tylenol (Acetaminophen) 325 Mg Tablet 650 Mg PO Q6HRS PRN Atorvastatin Calcium 20 Mg Tablet 1 Tab PO HS Acidophilus-Pectin Capsule (Lactobacillus Acidophilus/Pect) 1 Each Capsule 1 Each PO BIDWMEALS Omeprazole 40 Mg Capsule.dr 1 Cap PO QHS Vitamin D2 (Ergocalciferol (Vitamin D2)) 50,000 Unit Capsule 1 Cap PO QSA Zolpidem Tartrate 5 Mg Tablet 5 Mg PO PRN QHS PRN Simvastatin 40 Mg Tablet 1 Tab PO QHS Oxybutynin Chloride 5 Mg Tablet 1 Tab PO BID Omeprazole 20 Mg Capsule.dr 1 Cap PO HS Warfarin Sodium 5 Mg Tablet 1 Tab PO DAILY Furosemide 40 Mg Tablet 40 Mg PO PRN DAILY PRN Trazodone Hcl 50 Mg Tablet 50 Mg PO HS Amlodipine Besylate 5 Mg Tablet 5 Mg PO DAILY Meloxicam 7.5 Mg Tablet 7.5 Mg PO DAILY Atenolol 100 Mg Tablet 100 Mg PO DAILY Diovan (Valsartan) 320 Mg Tablet 320 Mg PO DAILY Vitals/I & O Vital Sign - Last 24 Hours 09/19/18 09/19/18 09/19/1825/19 09:54 09:56 11:05 11:54 Temp 98.8 98.8 Pulse 81 81 84 Resp 18 B/P (MAP) 174/69 174/69 106/55 (72) Pulse Ox 96 O2 Delivery Room Air Nasal Cannula O2 Flow Rate 3.0 09/19/18 09/19/18 09/19/18 09/19/18 15:35 16:02 19:00 20:00 Temp 99.0 97.0 99.0 97.0 Pulse 84 82 Resp 18 24 B/P (MAP) 133/53 (79) 135/63 (87) Pulse Ox 96 96 3 O2 Delivery Room Air Nasal Cannula Nasal Cannula Nasal Cannula O2 Flow Rate 3.0 2.0 09/19/18 09/19/18 09/19/18 09/20/18 20:17 23:00 23:40 01:25 Temp 98.6 98.6 Pulse 82 Resp 24 B/P (MAP) 100/55 (70) Pulse Ox 97 96 97 95 O2 Delivery Nasal Cannula Nasal Cannula BiPAP/CPAP BiPAP/CPAP O2 Flow Rate 3.0 3.0 09/20/18 09/20/18 09/20/18 09/20/18 03:00 03:45 05:46 07:11 Temp 97.4 97.4 Pulse 72 Resp 22 B/P (MAP) 115/59 (77) Pulse Ox 95 95 97 96 O2 Delivery BiPAP/CPAP BiPAP/CPAP BiPAP/CPAP BiPAP/CPAP 09/20/18 07:30 Temp 97.9 97.9 Pulse 71 Resp 16 B/P (MAP) 138/64 (88) Pulse Ox 99 O2 Delivery Nasal Cannula O2 Flow Rate 3.0 Intake and Output 09/19/18 09/19/18 09/20/18 15:01 23:01 07:01 Intake Total 60 ml 300 ml Output Total 100 ml 0 ml Balance 60 ml 200 ml 0 ml Nutrition Consultation Dietary Evaluation: Recommendations by RD: Increase Calorie Intake, Protein supplementation Comments: Will liberalize diet to regular to promote PO intake Will add Ensure w/breakfast, encourage to request prn Expected Outcomes/Goals: PO intake to meet >75% est needs Malnutrition Findings: Food and Nutrition Intake (Sev: <50% est energy req 5days Weight Status: Appropriate SONU HERRERA MD Sep 20, 2018 09:20
[2018-09-20] MEDS: CALCIUM CARBONATE 500 MG TAB.CHEW PO SCH ×2 (09:21→18:03)
[2018-09-20] MEDS: DOXYCYCLINE HYCLATE 100 MG TABLET PO SCH ×2 (09:21→20:25)
[2018-09-20] MEDS: amLODIPine BESYLATE 5 MG TABLET PO SCH (09:22)
[2018-09-20] MEDS: OXYBUTYNIN CHLORIDE 5 MG TABLET PO SCH ×2 (09:22→20:25)
[2018-09-20] MEDS: ASPIRIN ENTERIC COATED 81 MG TABLET.DR. PO SCH (09:22)
[2018-09-20] MEDS: LACTOBACILLUS RHAMNOSUS GG 1 CAPSULE. PO SCH ×2 (09:23→18:03)
[2018-09-20] MEDS: LOSARTAN POTASSIUM 50 MG TABLET. PO SCH (09:23)
[2018-09-20] MEDS: POLYETHYLENE GLYCOL 3350 17 GM PACKET. PO SCH (09:25)
[2018-09-20] MEDS: guaiFENesin DM 200MG/20MG 10 ML SYRUP PO PRN (10:24)
[2018-09-20 11:30] VITALS: BP 120/54
[2018-09-20] MEDS: cefTRIAXone IV Push 1 GM VIAL. IVP SCH (12:28)
[2018-09-20] MEDS: predniSONE 20 MG TABLET PO SCH (15:05)
[2018-09-20] MEDS: FLUTICASONE 50MCG/NASAL SPRAY 16GM BOTTLE. NS SCH (15:06)
[2018-09-20 15:15] VITALS: BP 102/51
[2018-09-20 19:45] VITALS: BP 119/53
[2018-09-20] MEDS: ATORVASTATIN CALCIUM 40 MG TABLET. PO SCH (20:25)
[2018-09-20] MEDS: SENNOSIDES/DOCUSATE 8.6/50MG TABLET. PO SCH (20:25)
[2018-09-20] MEDS: PANTOPRAZOLE 40 MG TABLET.DR. PO SCH (20:25)
[2018-09-20] MEDS: traZODone 50 MG TABLET. PO SCH (20:25)
[2018-09-20 23:30] VITALS: BP 117/54
[2018-09-21] MEDS: IPRATRPIUM/ALBUTEROL 0.5/2.5MG 3 ML NEBU. NEB SCH ×5 (00:13→17:32)
[2018-09-21 03:00] VITALS: BP 156/79
[2018-09-21 07:15] VITALS: BP 154/64
[2018-09-21] MEDS: BUDESONIDE 0.5 MG/2 ML NEBU. NEB SCH ×2 (07:37→17:32)
--- NOTE | 2018-09-21 08:09 | PDOC ---
PULMONARY PROGRESS NOTES Subjective on 02, sob slightly better, has cough, not much sputum Vitals Vital Signs Date Time Temp Pulse Resp B/P (MAP) Pulse Ox O2 Delivery O2 Flow Rate FiO2 09/21/18 07:37 100 Nasal Cannula 3.0 09/21/18 03:00 97.9 68 22 156/79 (104) 97.9 ROS: No Nausea General: Alert, Oriented X4 HEENT: Other (nc at perrl ) Lungs: Wheezing, Other (limited volume) Cardiovascular: S1, S2 Abdomen: Soft, Non-tender Neuro Exam: Alert Extremities: No Edema Skin: Warm Labs Laboratory Tests Test 09/20/18 05:30 White Blood Count 4.7 x10^3/uL (4.0-11.0) Red Blood Count 4.30 x10^6/uL (3.50-5.40) Hemoglobin 12.4 g/dL (12.0-15.5) Hematocrit 38.1 % (36.0-47.0) Mean Corpuscular Volume 89 fL (79-100) Mean Corpuscular Hemoglobin 29 pg (25-35) Mean Corpuscular Hemoglobin Concent 33 g/dL (31-37) Red Cell Distribution Width 15.3 % (11.5-14.5) Platelet Count 335 x10^3/uL (140-400) Neutrophils (%) (Auto) 59 % (31-73) Lymphocytes (%) (Auto) 17 % (24-48) Monocytes (%) (Auto) 24 % (0-9) Eosinophils (%) (Auto) 0 % (0-3) Basophils (%) (Auto) 0 % (0-3) Neutrophils # (Auto) 2.8 x10^3uL (1.8-7.7) Lymphocytes # (Auto) 0.8 x10^3/uL (1.0-4.8) Monocytes # (Auto) 1.1 x10^3/uL (0.0-1.1) Eosinophils # (Auto) 0.0 x10^3/uL (0.0-0.7) Basophils # (Auto) 0.0 x10^3/uL (0.0-0.2) Segmented Neutrophils % 44 % (35-66) Band Neutrophils % 8 % (0-9) Lymphocytes % 25 % (24-48) Monocytes % 23 % (0-10) Platelet Estimate Adequate (ADEQUATE) Sodium Level 142 mmol/L (136-145) Potassium Level 4.3 mmol/L (3.5-5.1) Chloride Level 103 mmol/L (98-107) Carbon Dioxide Level 34 mmol/L (21-32) Anion Gap 5 (6-14) Blood Urea Nitrogen 49 mg/dL (7-20) Creatinine 1.6 mg/dL (0.6-1.0) Estimated GFR (Cockcroft-Gault) 30.6 BUN/Creatinine Ratio 31 (6-20) Glucose Level 131 mg/dL (70-99) Calcium Level 9.5 mg/dL (8.5-10.1) Total Bilirubin 0.3 mg/dL (0.2-1.0) Aspartate Amino Transf (AST/SGOT) 13 U/L (15-37) Alanine Aminotransferase (ALT/SGPT) 13 U/L (14-59) Alkaline Phosphatase 65 U/L (46-116) Total Protein 7.2 g/dL (6.4-8.2) Albumin 3.3 g/dL (3.4-5.0) Albumin/Globulin Ratio 0.8 (1.0-1.7) Medications Active Scripts Medications Dose Route/Sig Max Daily Dose Days Date Category Losartan Potassium 100 Mg Tablet 100 Mg PO DAILY 02/23/18 Reported Tums (Calcium Carbonate) 200 Mg Tab.chew 500 Mg PO BIDWMEALS 02/23/18 Reported Tums (Calcium Carbonate) 300 Mg Tab.chew 300 Mg PO 02/23/18 Reported Miralax (Polyethylene Glycol 3350) 17 Gm Powd.pack 1 Packet PO DAILY 02/23/18 Reported Senna Plus Tablet (Sennosides/Docusate Sodium) 1 Each Tablet 2 Each PO QHS 02/23/18 Reported Women's Laxative (Bisacodyl) 5 Mg Tablet 4 Tab PO UD 02/23/18 Reported Dulcolax (Bisacodyl) 5 Mg Tablet.dr 5 Mg PO PRN DAILY PRN 02/23/18 Reported Dulcolax (Bisacodyl) 5 Mg Tablet.dr 4 Tab PO ONCE 02/23/18 Reported Mintox Plus Tablet Chewable (Mag Hydrox/Al Hydrox/Simeth) 1 Each Tab.chew 2 Each PO Q3HRS PRN 02/23/18 Reported Docusate Sodium 100 Mg Capsule 1 Cap PO BID PRN 02/23/18 Reported Tylenol (Acetaminophen) 325 Mg Tablet 650 Mg PO Q6HRS PRN 02/23/18 Reported Atorvastatin Calcium 20 Mg Tablet 1 Tab PO HS 02/23/18 Reported Acidophilus-Pectin Capsule (Lactobacillus Acidophilus/Pect) 1 Each Capsule 1 Each PO BIDWMEALS 02/23/18 Reported Omeprazole 40 Mg Capsule.dr 1 Cap PO QHS 02/23/18 Reported Vitamin D2 (Ergocalciferol (Vitamin D2)) 50,000 Unit Capsule 1 Cap PO QSA 02/16/18 Reported Zolpidem Tartrate 5 Mg Tablet 5 Mg PO PRN QHS PRN 02/16/18 Reported Simvastatin 40 Mg Tablet 1 Tab PO QHS 02/16/18 Reported Oxybutynin Chloride 5 Mg Tablet 1 Tab PO BID 02/16/18 Reported Omeprazole 20 Mg Capsule.dr 1 Cap PO HS 02/16/18 Reported Warfarin Sodium 5 Mg Tablet 1 Tab PO DAILY 03/07/16 Reported Furosemide 40 Mg Tablet 40 Mg PO PRN DAILY PRN 08/09/15 Reported Trazodone Hcl 50 Mg Tablet 50 Mg PO HS 08/09/15 Reported Amlodipine Besylate 5 Mg Tablet 5 Mg PO DAILY 08/09/15 Reported Meloxicam 7.5 Mg Tablet 7.5 Mg PO DAILY 08/09/15 Reported Atenolol 100 Mg Tablet 100 Mg PO DAILY 08/09/15 Reported Diovan (Valsartan) 320 Mg Tablet 320 Mg PO DAILY 08/09/[address] 1. No CT evidence of central pulmonary emboli, although delineation of the basilar pulmonary arteries is compromised by patient history motion artifact. 2. 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 3. Calcific plaquing of the aorta and coronary arteries 4. Mediastinal lymph nodes of borderline size. 5. Mild tree-in-bud opacities in the right middle lobe, likely on an inflammatory basis. 6. Small left breast nodule. Diagnostic mammography is suggested, if not already performed elsewhere. echo The left ventricle is normal size. The left ventricular systolic function is normal and the ejection fraction is within normal range. The Ejection Fraction is 50-55%. There is mild to moderate concentric left ventricular hypertrophy. Normal appearance of a prosthetic aortic valve. There are normal prosthetic aortic valve gradients. Doppler and Color Flow revealed trace mitral valve regurgitation. Doppler and Color Flow revealed trace tricuspid regurgitation. Impression . IMPRESSION: 1. Acute hypoxic and hypercapnic respiratory failure, likely secondary to acute exacerbation of chronic obstructive pulmonary disease and triggered by lower respiratory tract infection. 2. Low-grade fever, resolved. Possible acute bronchitis versus mild right upper lobe pneumonia. 3. D-dimer mildly elevated. cta, no pe 4. Mild renal insufficiency. 5. Clinically unlikely congestive heart failure. 6. allergic rhinitis Plan . RECOMMENDATIONS: 1. oxygen titration. 2. empiric antibiotic. 3. DuoNeb. ICS 4. atenolol on hold until bronchospasm is resolved. 5. cont steroids. prednisone 40 mg daily, no dose change, has cough, wheezing. 7. CTA no pe, ? pneumonia 8. echocardiogram reviewed. 9. Optimization of blood pressure per PCP. 10. add flonase 11. ct showed breast nodule, defer paige to primary Discussed with the patient's daughter and pt, rn MURALI MIRANDA MD Sep 21, 2018 08:09
[2018-09-21] MEDS: LACTOBACILLUS RHAMNOSUS GG 1 CAPSULE. PO SCH ×2 (09:20→17:59)
[2018-09-21] MEDS: POLYETHYLENE GLYCOL 3350 17 GM PACKET. PO SCH (09:20)
[2018-09-21] MEDS: LOSARTAN POTASSIUM 50 MG TABLET. PO SCH (09:22)
[2018-09-21] MEDS: CALCIUM CARBONATE 500 MG TAB.CHEW PO SCH ×2 (09:22→17:59)
[2018-09-21] MEDS: predniSONE 20 MG TABLET PO SCH (09:22)
[2018-09-21] MEDS: DOXYCYCLINE HYCLATE 100 MG TABLET PO SCH ×2 (09:23→21:01)
[2018-09-21] MEDS: amLODIPine BESYLATE 5 MG TABLET PO SCH (09:23)
[2018-09-21] MEDS: OXYBUTYNIN CHLORIDE 5 MG TABLET PO SCH ×2 (09:23→21:01)
[2018-09-21] MEDS: ASPIRIN ENTERIC COATED 81 MG TABLET.DR. PO SCH (09:23)
[2018-09-21] MEDS: FLUTICASONE 50MCG/NASAL SPRAY 16GM BOTTLE. NS SCH (09:24)
[2018-09-21 11:45] VITALS: BP 143/43
[2018-09-21] MEDS: cefTRIAXone IV Push 1 GM VIAL. IVP SCH (12:33)
[2018-09-21 15:30] VITALS: BP 113/39
[2018-09-21] MEDS: guaiFENesin DM 200MG/20MG 10 ML SYRUP PO PRN (18:14)
[2018-09-21 19:45] VITALS: BP 133/58
[2018-09-21] MEDS: PANTOPRAZOLE 40 MG TABLET.DR. PO SCH (21:00)
[2018-09-21] MEDS: SENNOSIDES/DOCUSATE 8.6/50MG TABLET. PO SCH (21:01)
[2018-09-21] MEDS: ATORVASTATIN CALCIUM 40 MG TABLET. PO SCH (21:01)
[2018-09-21] MEDS: traZODone 50 MG TABLET. PO SCH (21:01)
[2018-09-21 23:10] VITALS: BP 124/58
[2018-09-22] VITALS (8 sets, daily range): BP systolic 124–205; BP diastolic 57–85
--- NOTE | 2018-09-22 04:22 | NUR ---
UPON ARRIVAL TO CHECK BIPAP, PT WAS FOUND OFF BIPAP. PT ON 2LNC 97%
[2018-09-22] MEDS: LABETALOL 20 MG/4 ML DISP.SYRIN. IVP PRN (07:51)
[2018-09-22] MEDS: IPRATRPIUM/ALBUTEROL 0.5/2.5MG 3 ML NEBU. NEB SCH ×4 (07:52→20:15)
[2018-09-22] MEDS: BUDESONIDE 0.5 MG/2 ML NEBU. NEB SCH ×2 (07:52→20:15)
--- NOTE | 2018-09-22 08:55 | PDOC ---
PULMONARY PROGRESS NOTES Subjective PT NOT MORE SOA Vitals Vital Signs Date Time Temp Pulse Resp B/P (MAP) Pulse Ox O2 Delivery O2 Flow Rate FiO2 09/22/18 08:07 67 164/74 (104) 09/22/18 07:55 97 Nasal Cannula 2.0 09/22/18 07:28 98.4 18 98.4 ROS: No Nausea General: Alert Lungs: Wheezing, Other (limited volume) Cardiovascular: S1, S2 Abdomen: Soft, Non-tender Neuro Exam: Alert Extremities: No Edema Skin: Warm Medications Active Scripts Medications Dose Route/Sig Max Daily Dose Days Date Category Losartan Potassium 100 Mg Tablet 100 Mg PO DAILY 02/23/18 Reported Tums (Calcium Carbonate) 200 Mg Tab.chew 500 Mg PO BIDWMEALS 02/23/18 Reported Tums (Calcium Carbonate) 300 Mg Tab.chew 300 Mg PO 02/23/18 Reported Miralax (Polyethylene Glycol 3350) 17 Gm Powd.pack 1 Packet PO DAILY 02/23/18 Reported Senna Plus Tablet (Sennosides/Docusate Sodium) 1 Each Tablet 2 Each PO QHS 02/23/18 Reported Women's Laxative (Bisacodyl) 5 Mg Tablet 4 Tab PO UD 02/23/18 Reported Dulcolax (Bisacodyl) 5 Mg Tablet. 5 Mg PO PRN DAILY PRN 02/23/18 Reported Dulcolax (Bisacodyl) 5 Mg Tablet.dr 4 Tab PO ONCE 02/23/18 Reported Mintox Plus Tablet Chewable (Mag Hydrox/Al Hydrox/Simeth) 1 Each Tab.chew 2 Each PO Q3HRS PRN 02/23/18 Reported Docusate Sodium 100 Mg Capsule 1 Cap PO BID PRN 02/23/18 Reported Tylenol (Acetaminophen) 325 Mg Tablet 650 Mg PO Q6HRS PRN 02/23/18 Reported Atorvastatin Calcium 20 Mg Tablet 1 Tab PO HS 02/23/18 Reported Acidophilus-Pectin Capsule (Lactobacillus Acidophilus/Pect) 1 Each Capsule 1 Each PO BIDWMEALS 02/23/18 Reported Omeprazole 40 Mg Capsule. 1 Cap PO QHS 02/23/18 Reported Vitamin D2 (Ergocalciferol (Vitamin D2)) 50,000 Unit Capsule 1 Cap PO QSA 02/16/18 Reported Zolpidem Tartrate 5 Mg Tablet 5 Mg PO PRN QHS PRN 02/16/18 Reported Simvastatin 40 Mg Tablet 1 Tab PO QHS 02/16/18 Reported Oxybutynin Chloride 5 Mg Tablet 1 Tab PO BID 02/16/18 Reported Omeprazole 20 Mg Capsule.dr 1 Cap PO HS 02/16/18 Reported Warfarin Sodium 5 Mg Tablet 1 Tab PO DAILY 03/07/16 Reported Furosemide 40 Mg Tablet 40 Mg PO PRN DAILY PRN 08/09/15 Reported Trazodone Hcl 50 Mg Tablet 50 Mg PO HS 08/09/15 Reported Amlodipine Besylate 5 Mg Tablet 5 Mg PO DAILY 08/09/15 Reported Meloxicam 7.5 Mg Tablet 7.5 Mg PO DAILY 08/09/15 Reported Atenolol 100 Mg Tablet 100 Mg PO DAILY 08/09/15 Reported Diovan (Valsartan) 320 Mg Tablet 320 Mg PO DAILY 08/09/[address] 1. No CT evidence of central pulmonary emboli, although delineation of the basilar pulmonary arteries is compromised by patient history motion artifact. 2. 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 3. Calcific plaquing of the aorta and coronary arteries 4. Mediastinal lymph nodes of borderline size. 5. Mild tree-in-bud opacities in the right middle lobe, likely on an inflammatory basis. 6. Small left breast nodule. Diagnostic mammography is suggested, if not already performed elsewhere. echo The left ventricle is normal size. The left ventricular systolic function is normal and the ejection fraction is within normal range. The Ejection Fraction is 50-55%. There is mild to moderate concentric left ventricular hypertrophy. Normal appearance of a prosthetic aortic valve. There are normal prosthetic aortic valve gradients. Doppler and Color Flow revealed trace mitral valve regurgitation. Doppler and Color Flow revealed trace tricuspid regurgitation. Impression . IMPRESSION: 1. Acute hypoxic and hypercapnic respiratory failure, likely secondary to acute exacerbation of chronic obstructive pulmonary disease and triggered by lower respiratory tract infection. 2. Low-grade fever, resolved. Possible acute bronchitis versus mild right upper lobe pneumonia. 3. D-dimer mildly elevated. cta, no pe 4. Mild renal insufficiency. 5. Clinically unlikely congestive heart failure. 6. allergic rhinitis Plan . WILL CONTINUE THE SAME 02 ANTI BX PRED PREET BRIDGES MD Sep 22, 2018 08:54
--- NOTE | 2018-09-22 09:30 | NUR ---
Titrated oxygen down to 1L NC with Sp02 maintaining at 96-97%.
[2018-09-22] MEDS: CALCIUM CARBONATE 500 MG TAB.CHEW PO SCH ×2 (09:34→18:41)
[2018-09-22] MEDS: predniSONE 20 MG TABLET PO SCH (09:34)
[2018-09-22] MEDS: DOXYCYCLINE HYCLATE 100 MG TABLET PO SCH ×2 (09:34→21:21)
[2018-09-22] MEDS: LACTOBACILLUS RHAMNOSUS GG 1 CAPSULE. PO SCH ×2 (09:34→18:40)
[2018-09-22] MEDS: OXYBUTYNIN CHLORIDE 5 MG TABLET PO SCH ×2 (09:34→21:20)
[2018-09-22] MEDS: ASPIRIN ENTERIC COATED 81 MG TABLET.DR. PO SCH (09:34)
[2018-09-22] MEDS: POLYETHYLENE GLYCOL 3350 17 GM PACKET. PO SCH (09:35)
[2018-09-22] MEDS: FLUTICASONE 50MCG/NASAL SPRAY 16GM BOTTLE. NS SCH (09:43)
--- NOTE | 2018-09-22 10:58 | PDOC ---
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 CHF, acute diastolic failure, better with IV lasix, will continue accelerated hypertension hypercarbia, poor volume breaths, likely COPD, nebs prior CVA, some residual weakness, some early vascular dementia History of Present Illness History of Present Illness feels improved very weak no cough no sputum MILD wheeze today Vitals Vitals Vital Signs Date Time Temp Pulse Resp B/P (MAP) Pulse Ox O2 Delivery O2 Flow Rate FiO2 09/22/18 08:07 67 164/74 (104) 09/22/18 07:55 97 Nasal Cannula 2.0 09/22/18 07:28 98.4 18 98.4 Physical Exam General: Alert, Oriented X3, Cooperative, No acute distress Heart: Regular rate (SR), Normal S1, Normal S2, Other (3/6 systolic murmur to ELLIE border) Lungs: Wheezing, Other (limited volume) Abdomen: Soft, No tenderness Extremities: No cyanosis, No edema Skin: No breakdown, No significant lesion Labs LABS CTA of the chest with contrast, 09/19/2018: HISTORY: Shortness of breath, pneumonia Multidetector CT imaging was performed following an IV bolus injection of iodinated contrast material. Multiplanar reconstructions were produced including coronal and sagittal MIP images. The central pulmonary arteries are well opacified. Delineation of the pulmonary arteries, particularly in the lower lobes was compromised by patient respiratory motion artifact. No filling defects are seen in the central pulmonary arteries to suggest pulmonary emboli. An aortic valvular prosthesis is in place. There is moderate calcific plaquing of the thoracic aorta and its branches without evidence of aneurysm or dissection. Scattered coronary artery calcifications are present. The heart is generally enlarged. There are precarinal and subcarinal lymph nodes of borderline size. There are granulomatous calcifications at the left hilum and in the left lung. Evaluation of the lung parenchyma is compromised by the patient respiratory motion artifact. There are mild tree-in-bud type opacities in the right middle lobe. There are scattered linear opacities in both lungs suggesting scarring and/or minimal atelectasis. No pleural fluid is evident. There is mild bilateral renal cortical scarring. Moderate scattered degenerative changes are present in the spine. Incidental note is made of a 11 mm nodule in the medial left breast. IMPRESSION: 1. No CT evidence of central pulmonary emboli, although delineation of the basilar pulmonary arteries is compromised by patient history motion artifact. 2. 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 3. Calcific plaquing of the aorta and coronary arteries 4. Mediastinal lymph nodes of borderline size. 5. Mild tree-in-bud opacities in the right middle lobe, likely on an inflammatory basis. 6. Small left breast nodule. Diagnostic mammography is suggested, if not already performed elsewhere. Assessment and Plan Assessmemt and Plan Problems Medical Problems: (1) CHF (congestive heart failure) Status: Acute (2) Hypertensive urgency Status: Acute (3) Hypoxia Status: Acute Comment Review of Relevant I have reviewed the following items junie (where applicable) has been applied. Labs Microbiology 09/18/18 Blood Culture - Preliminary, Resulted NO GROWTH AFTER 3 DAYS Medications Current Medications Albuterol/ Ipratropium (Duoneb) 3 ml 1X ONCE NEB Last administered on at 18:57; Start 09/18/18 at 18:45; Stop 09/18/18 at 18:51; Status DC Labetalol HCl (Normodyne Iv Push) 20 mg 1X ONCE IVP Last administered on at 19:00; Start 09/18/18 at 19:00; Stop 09/18/18 at 19:01; Status DC Furosemide (Lasix) 40 mg 1X ONCE IVP Last administered on 09/18/18at 20:45; Start 09/18/18 at 20:45; Stop 09/18/18 at 20:46; Status DC Albuterol/ Ipratropium (Duoneb) 3 ml Q4HRS W/A NEB Last administered on at 07:52; Start 09/18/18 at 22:00 Budesonide (Pulmicort) 0.5 mg RTBID NEB Last administered on 09/22/18at 07:52; Start 09/19/18 at 08:00 Acetaminophen (Tylenol) 650 mg PRN Q6HRS PRN PO MILD PAIN / TEMP; Start at 21:15 Amlodipine Besylate (Norvasc) 5 mg DAILY PO Last administered on 09/21/18at 09: 23; Start 09/19/18 at 09:00 Atorvastatin Calcium (Lipitor) 20 mg HS PO ; Start 09/18/18 at 22:00; Stop 09/20 at 14:47; Status DC Bisacodyl (Dulcolax Tab) 5 mg PRN DAILY PRN PO CONSTIPATION 2ND CHOICE; Start 09/18/18 at 21:15 Calcium Carbonate/ Glycine (Tums) 500 mg BIDWMEALS PO Last administered on 09/22 09:34; Start 09/19/18 at 08:00 Docusate Sodium (Colace) 100 mg PRN BID PRN PO CONSTIPATION 1ST CHOICE Last administered on 09/22/18 09:34; Start 09/18/18 at 21:15 Oxybutynin Chloride (Ditropan) 5 mg BID PO Last administered on 09/22/18 09:34 ; Start 09/18/18 at 22:00 Senna/Docusate Sodium (Senna Plus) 2 tab QHS PO Last administered on 09/21/18 21:01; Start 09/19/18 at 21:00 Trazodone HCl (Desyrel) 50 mg HS PO Last administered on 09/21/18 21:01; Start 09/19/18 at 21:00 Zolpidem Tartrate (Ambien) 5 mg PRN QHS PRN PO INSOMNIA; Start 09/18/18 at 21: 15 Atenolol (Tenormin) 100 mg DAILY PO ; Start 09/19/18 at 09:00; Stop 09/19/18 at 10:27; Status DC Lactobacillus Rhamnosus (Culturelle) 1 cap BIDWMEALS PO Last administered on 09:34; Start 09/19/18 at 08:00 Losartan Potassium (Cozaar) 100 mg DAILY PO Last administered on 09/21/18 09: 22; Start 09/19/18 at 09:00 Al Hydroxide/Mg Hydroxide (Mylanta Plus Xs) 30 ml PRN Q3HRS PRN PO stomach upset Last administered on 09/19/18 09:56; Start 09/18/18 at 21:15 Pantoprazole Sodium (Protonix) 40 mg QHS PO Last administered on 09/21/18 21: 00; Start 09/18/18 at 22:00 Polyethylene Glycol (miraLAX PACKET) 17 gm DAILY PO Last administered on 1/28/ 19at 09:35; Start 09/19/18 at 09:00 Simvastatin (Zocor) 40 mg QHS PO ; Start 09/19/18 at 21:00; Stop 09/19/18 at 21: 00; Status DC Furosemide (Lasix) 40 mg DAILY IVP Last administered on 09/19/18at 09:56; Start 09/19/18 at 09:00; Stop 09/19/18 at 10:32; Status DC Labetalol HCl (Normodyne Iv Push) 20 mg PRN Q2HR PRN IVP HYPERTENSION, SEE COMMENTS Last administered on 09/22/18at 07:51; Start 09/18/18 at 23:30 Albuterol/ Ipratropium (Duoneb) 3 ml 1X ONCE NEB ; Start 09/19/18 at 00:45; Stop 09/19/18 at 00:46; Status DC Albuterol/ Ipratropium (Duoneb) 3 ml 1X ONCE NEB Last administered on 01:18; Start 09/19/18 at 01:15; Stop 09/19/18 at 01:16; Status DC Nitroglycerin (Nitro-Bid Oint) 1 inch 1X ONCE TP Last administered on at 01:36; Start 09/19/18 at 01:15; Stop 09/19/18 at 01:16; Status DC Lorazepam (Ativan) 0.5 mg PRN Q4HRS PRN IV ANXIETY / AGITATION Last administered on 09/19/18at 01:37; Start 09/19/18 at 01:15 Potassium Chloride (Klor-Con) 40 meq 1X ONCE PO Last administered on 09:55; Start 09/19/18 at 07:00; Stop 09/19/18 at 07:01; Status DC Ceftriaxone Sodium (Rocephin) 1 gm Q24H IVP Last administered on 09/21/18 12: 33; Start 09/19/18 at 11:00 Doxycycline Hyclate (Vibra-Tab) 100 mg BID PO Last administered on 09/22/18 09 :34; Start 09/19/18 at 21:00 Doxycycline Hyclate (Vibra-Tab) 100 mg 1X ONCE PO Last administered on at 13:18; Start 09/19/18 at 10:30; Stop 09/19/18 at 10:31; Status DC Methylprednisolone Sodium Succinate (SOLU-Medrol 40MG VIAL) 40 mg 1X ONCE IV Last administered on 09/19/18at 13:18; Start 09/19/18 at 10:30; Stop 09/19/18 at 10:31; Status DC Prednisone (Prednisone) 40 mg DAILY PO Last administered on 09/22/18at 09:34; Start 09/20/18 at 14:00 Sodium Chloride 500 ml @ 500 mls/hr 1X ONCE IV Last administered on at 10:38; Start 09/19/18 at 10:45; Stop 09/19/18 at 11:44; Status DC Iohexol (Omnipaque 350 Mg/ml) 90 ml 1X ONCE IV ; Start 09/19/18 at 10:45; Stop 09/19/18 at 10:46; Status DC Info (CONTRAST GIVEN -- Rx MONITORING) 1 each PRN DAILY PRN MC SEE COMMENTS; Start 09/19/18 at 10:45; Stop 09/21/18 at 10:44; Status DC Atorvastatin Calcium (Lipitor) 40 mg QHS PO Last administered on 09/21/18at 21: 01; Start 09/19/18 at 21:00 Aspirin (Ecotrin) 81 mg DAILYWBKFT PO Last administered on 09/22/18at 09:34; Start 09/19/18 at 15:00 Guaifenesin (Robitussin Dm) 10 ml PRN Q6HRS PRN PO COUGH Last administered on at 18:14; Start 09/20/18 at 09:30 Fluticasone Propionate (Flonase) 2 spray DAILY NS Last administered on at 09:43; Start 09/20/18 at 15:30 Active Scripts Active Reported Losartan Potassium 100 Mg Tablet 100 Mg PO DAILY Tums (Calcium Carbonate) 200 Mg Tab.chew 500 Mg PO BIDWMEALS Tums (Calcium Carbonate) 300 Mg Tab.chew 300 Mg PO Miralax (Polyethylene Glycol 3350) 17 Gm Powd.pack 1 Packet PO DAILY Senna Plus Tablet (Sennosides/Docusate Sodium) 1 Each Tablet 2 Each PO QHS Women's Laxative (Bisacodyl) 5 Mg Tablet 4 Tab PO UD Dulcolax (Bisacodyl) 5 Mg Tablet. 5 Mg PO PRN DAILY PRN Dulcolax (Bisacodyl) 5 Mg Tablet.dr 4 Tab PO ONCE Mintox Plus Tablet Chewable (Mag Hydrox/Al Hydrox/Simeth) 1 Each Tab.chew 2 Each PO Q3HRS PRN Docusate Sodium 100 Mg Capsule 1 Cap PO BID PRN Tylenol (Acetaminophen) 325 Mg Tablet 650 Mg PO Q6HRS PRN Atorvastatin Calcium 20 Mg Tablet 1 Tab PO HS Acidophilus-Pectin Capsule (Lactobacillus Acidophilus/Pect) 1 Each Capsule 1 Each PO BIDWMEALS Omeprazole 40 Mg Capsule.dr 1 Cap PO QHS Vitamin D2 (Ergocalciferol (Vitamin D2)) 50,000 Unit Capsule 1 Cap PO QSA Zolpidem Tartrate 5 Mg Tablet 5 Mg PO PRN QHS PRN Simvastatin 40 Mg Tablet 1 Tab PO QHS Oxybutynin Chloride 5 Mg Tablet 1 Tab PO BID Omeprazole 20 Mg Capsule.dr 1 Cap PO HS Warfarin Sodium 5 Mg Tablet 1 Tab PO DAILY Furosemide 40 Mg Tablet 40 Mg PO PRN DAILY PRN Trazodone Hcl 50 Mg Tablet 50 Mg PO HS Amlodipine Besylate 5 Mg Tablet 5 Mg PO DAILY Meloxicam 7.5 Mg Tablet 7.5 Mg PO DAILY Atenolol 100 Mg Tablet 100 Mg PO DAILY Diovan (Valsartan) 320 Mg Tablet 320 Mg PO DAILY Vitals/I & O Vital Sign - Last 24 Hours 09/21/18 09/21/18 09/21/18 09/21/18 11:42 11:45 15:30 17:33 Temp 97.8 97.8 97.8 97.8 Pulse 66 73 Resp 16 16 B/P (MAP) 143/43 (76) 113/39 (63) Pulse Ox 99 99 92 93 O2 Delivery Nasal Cannula Nasal Cannula Room Air Nasal Cannula O2 Flow Rate 2.0 2.0 1.0 09/21/18 09/21/18 09/21/18 09/22/18 19:45 19:45 23:10 00:16 Temp 97.9 97.9 97.9 97.9 Pulse 76 64 Resp 20 18 B/P (MAP) 133/58 (83) 124/58 (80) Pulse Ox 97 96 98 O2 Delivery Nasal Cannula Nasal Cannula Nasal Cannula BiPAP/CPAP O2 Flow Rate 2.0 3.0 3.0 09/22/18 09/22/18 09/22/18 09/22/18 03:15 07:28 07:48 07:51 Temp 98.2 98.4 98.2 98.4 Pulse 59 62 63 63 Resp 18 18 B/P (MAP) 169/74 (105) 205/85 (125) 185/77 (113) 185/77 Pulse Ox 98 98 O2 Delivery Nasal Cannula Nasal Cannula O2 Flow Rate 3.0 3.0 09/22/18 09/22/18 07:55 08:07 Pulse 67 B/P (MAP) 164/74 (104) Pulse Ox 97 O2 Delivery Nasal Cannula O2 Flow Rate 2.0 Intake and Output 09/21/18 09/21/18 09/22/18 15:01 23:01 07:01 Intake Total 250 ml 300 ml Output Total 100 ml Balance -100 ml 250 ml 300 ml Nutrition Consultation Dietary Evaluation: Recommendations by RD: Increase Calorie Intake, Protein supplementation Comments: Will liberalize diet to regular to promote PO intake Will add Ensure w/breakfast, encourage to request prn Expected Outcomes/Goals: PO intake to meet >75% est needs Malnutrition Findings: Food and Nutrition Intake (Sev: <50% est energy req 5days Weight Status: Appropriate TINO VAUGHN MD Sep 22, 2018 10:58
[2018-09-22] MEDS: cefTRIAXone IV Push 1 GM VIAL. IVP SCH (11:15)
[2018-09-22] MEDS: amLODIPine BESYLATE 5 MG TABLET PO SCH (11:16)
[2018-09-22] MEDS: LOSARTAN POTASSIUM 50 MG TABLET. PO SCH (11:16)
--- NOTE | 2018-09-22 13:26 | NUR ---
SS following for discharge planning. SS reviewed pt chart. Pt is from [facility]. PT/OT recommending care home unit. SS met with pt and contacted pt's daughter, Rahel, . Pt's daughter agreeable to care home unit and requested that SS phone and fax referral to [facility], ; fax [phone]. Pt's daughter reported that pt has been to [facility] in the past but reported that [facility] is closer to her home. SS phoned and faxed referral to [facility]. SS will await acceptance decision and will proceed accordingly. Pt's RN notified.
[2018-09-22] MEDS: guaiFENesin DM 200MG/20MG 10 ML SYRUP PO PRN (14:05)
--- NOTE | 2018-09-22 16:30 | NUR ---
SS following up with discharge planning. SS received notification that [facility] declined pt. SS spoke with pt's daughter, Rahel, via phone and notified. Rahel requested that referral be sent to [facility], ; fax [phone]. SS phoned and faxed referral. SS will await acceptance decision and will proceed accordingly. Pt's RN notified.
[2018-09-22] MEDS: SENNOSIDES/DOCUSATE 8.6/50MG TABLET. PO SCH (21:00)
[2018-09-22] MEDS: PANTOPRAZOLE 40 MG TABLET.DR. PO SCH (21:20)
[2018-09-22] MEDS: traZODone 50 MG TABLET. PO SCH (21:20)
[2018-09-22] MEDS: ATORVASTATIN CALCIUM 40 MG TABLET. PO SCH (21:21)
[2018-09-23] MEDS: IPRATRPIUM/ALBUTEROL 0.5/2.5MG 3 ML NEBU. NEB SCH ×4 (01:03→16:07)
[2018-09-23 03:35] VITALS: BP 161/71
--- NOTE | 2018-09-23 03:37 | NUR ---
Pt off BiPap at 0315, unable to tolerate after removing mask a few times and attempting to adjust for comfort fit. On 1LNC satting 91-94%
--- NOTE | 2018-09-23 04:33 | NUR ---
Pt up to 2LNC to keep O2 sats above 90%.
[2018-09-23 05:06] LABS: BASO % 0 % (0-3); EOS % 0 % (0-3); HEMOGLOBIN 12.2 g/dL (12.0-15.5); LYMPH # 1.1 x10^3/uL (1.0-4.8); LYMPH % 16 % (24-48); MEAN CORPUSCULAR HEMOGLOBIN 29 pg (25-35); MEAN CORPUSCULAR HGB CONC 33 g/dL (31-37); MEAN CORPUSCULAR VOLUME 88 fL (79-100); MONO # 0.8 x10^3/uL (0.0-1.1); MONO % 12 % (0-9); NEUT % 73 % (31-73); PLATELET COUNT 321 x10^3/uL (140-400); RED BLOOD COUNT 4.19 x10^6/uL (3.50-5.40); RED CELL DISTRIBUTION WIDTH 14.7 % (11.5-14.5); WHITE BLOOD COUNT 6.9 x10^3/uL (4.0-11.0)
[2018-09-23 05:34] LABS: ALBUMIN/GLOBULIN RATIO 0.8 (1.0-1.7); CALCIUM 9.3 mg/dL (8.5-10.1); CREATININE 0.9 mg/dL (0.6-1.0); GFR 59.4; POTASSIUM 4.1 mmol/L (3.5-5.1); TOTAL BILIRUBIN 0.2 mg/dL (0.2-1.0); TOTAL PROTEIN 6.6 g/dL (6.4-8.2)
[2018-09-23] MEDS: BUDESONIDE 0.5 MG/2 ML NEBU. NEB SCH (06:00)
[2018-09-23 07:00] VITALS: BP 174/73
--- NOTE | 2018-09-23 07:18 | NUR ---
One hearing aide found on table at 2099, the other has not been found this shift. Search of room, linens, clothing unproductive. Addendum: 09/23/18 at 1651 by YOHAN HERRERA RN Other hearing aide was found.
--- NOTE | 2018-09-23 08:49 | PDOC ---
PULMONARY PROGRESS NOTES Subjective PT NOT MORE SOA Vitals Vital Signs Date Time Temp Pulse Resp B/P (MAP) Pulse Ox O2 Delivery O2 Flow Rate FiO2 09/23/18 07:00 98.4 63 20 174/73 (106) 98 Nasal Cannula 3.0 98.4 ROS: No Nausea General: Alert Lungs: Wheezing, Other (limited volume) Cardiovascular: S1, S2 Abdomen: Soft, Non-tender Neuro Exam: Alert Extremities: No Edema Skin: Warm Labs Laboratory Tests Test 09/23/18 04:30 White Blood Count 6.9 x10^3/uL (4.0-11.0) Red Blood Count 4.19 x10^6/uL (3.50-5.40) Hemoglobin 12.2 g/dL (12.0-15.5) Hematocrit 37.0 % (36.0-47.0) Mean Corpuscular Volume 88 fL (79-100) Mean Corpuscular Hemoglobin 29 pg (25-35) Mean Corpuscular Hemoglobin Concent 33 g/dL (31-37) Red Cell Distribution Width 14.7 % (11.5-14.5) Platelet Count 321 x10^3/uL (140-400) Neutrophils (%) (Auto) 73 % (31-73) Lymphocytes (%) (Auto) 16 % (24-48) Monocytes (%) (Auto) 12 % (0-9) Eosinophils (%) (Auto) 0 % (0-3) Basophils (%) (Auto) 0 % (0-3) Neutrophils # (Auto) 5.0 x10^3uL (1.8-7.7) Lymphocytes # (Auto) 1.1 x10^3/uL (1.0-4.8) Monocytes # (Auto) 0.8 x10^3/uL (0.0-1.1) Eosinophils # (Auto) 0.0 x10^3/uL (0.0-0.7) Basophils # (Auto) 0.0 x10^3/uL (0.0-0.2) Sodium Level 143 mmol/L (136-145) Potassium Level 4.1 mmol/L (3.5-5.1) Chloride Level 102 mmol/L (98-107) Carbon Dioxide Level 35 mmol/L (21-32) Anion Gap 6 (6-14) Blood Urea Nitrogen 42 mg/dL (7-20) Creatinine 0.9 mg/dL (0.6-1.0) Estimated GFR (Cockcroft-Gault) 59.4 BUN/Creatinine Ratio 47 (6-20) Glucose Level 156 mg/dL (70-99) Calcium Level 9.3 mg/dL (8.5-10.1) Total Bilirubin 0.2 mg/dL (0.2-1.0) Aspartate Amino Transf (AST/SGOT) 16 U/L (15-37) Alanine Aminotransferase (ALT/SGPT) 20 U/L (14-59) Alkaline Phosphatase 57 U/L (46-116) Total Protein 6.6 g/dL (6.4-8.2) Albumin 3.0 g/dL (3.4-5.0) Albumin/Globulin Ratio 0.8 (1.0-1.7) Laboratory Tests Test 09/23/18 04:30 White Blood Count 6.9 x10^3/uL (4.0-11.0) Red Blood Count 4.19 x10^6/uL (3.50-5.40) Hemoglobin 12.2 g/dL (12.0-15.5) Hematocrit 37.0 % (36.0-47.0) Mean Corpuscular Volume 88 fL (79-100) Mean Corpuscular Hemoglobin 29 pg (25-35) Mean Corpuscular Hemoglobin Concent 33 g/dL (31-37) Red Cell Distribution Width 14.7 % (11.5-14.5) Platelet Count 321 x10^3/uL (140-400) Neutrophils (%) (Auto) 73 % (31-73) Lymphocytes (%) (Auto) 16 % (24-48) Monocytes (%) (Auto) 12 % (0-9) Eosinophils (%) (Auto) 0 % (0-3) Basophils (%) (Auto) 0 % (0-3) Neutrophils # (Auto) 5.0 x10^3uL (1.8-7.7) Lymphocytes # (Auto) 1.1 x10^3/uL (1.0-4.8) Monocytes # (Auto) 0.8 x10^3/uL (0.0-1.1) Eosinophils # (Auto) 0.0 x10^3/uL (0.0-0.7) Basophils # (Auto) 0.0 x10^3/uL (0.0-0.2) Sodium Level 143 mmol/L (136-145) Potassium Level 4.1 mmol/L (3.5-5.1) Chloride Level 102 mmol/L (98-107) Carbon Dioxide Level 35 mmol/L (21-32) Anion Gap 6 (6-14) Blood Urea Nitrogen 42 mg/dL (7-20) Creatinine 0.9 mg/dL (0.6-1.0) Estimated GFR (Cockcroft-Gault) 59.4 BUN/Creatinine Ratio 47 (6-20) Glucose Level 156 mg/dL (70-99) Calcium Level 9.3 mg/dL (8.5-10.1) Total Bilirubin 0.2 mg/dL (0.2-1.0) Aspartate Amino Transf (AST/SGOT) 16 U/L (15-37) Alanine Aminotransferase (ALT/SGPT) 20 U/L (14-59) Alkaline Phosphatase 57 U/L (46-116) Total Protein 6.6 g/dL (6.4-8.2) Albumin 3.0 g/dL (3.4-5.0) Albumin/Globulin Ratio 0.8 (1.0-1.7) Medications Active Scripts Medications Dose Route/Sig Max Daily Dose Days Date Category Losartan Potassium 100 Mg Tablet 100 Mg PO DAILY 02/23/18 Reported Tums (Calcium Carbonate) 200 Mg Tab.chew 500 Mg PO BIDWMEALS 02/23/18 Reported Tums (Calcium Carbonate) 300 Mg Tab.chew 300 Mg PO 02/23/18 Reported Miralax (Polyethylene Glycol 3350) 17 Gm Powd.pack 1 Packet PO DAILY 02/23/18 Reported Senna Plus Tablet (Sennosides/Docusate Sodium) 1 Each Tablet 2 Each PO QHS 02/23/18 Reported Women's Laxative (Bisacodyl) 5 Mg Tablet 4 Tab PO UD 02/23/18 Reported Dulcolax (Bisacodyl) 5 Mg Tablet.dr 5 Mg PO PRN DAILY PRN 02/23/18 Reported Dulcolax (Bisacodyl) 5 Mg Tablet. 4 Tab PO ONCE 02/23/18 Reported Mintox Plus Tablet Chewable (Mag Hydrox/Al Hydrox/Simeth) 1 Each Tab.chew 2 Each PO Q3HRS PRN 02/23/18 Reported Docusate Sodium 100 Mg Capsule 1 Cap PO BID PRN 02/23/18 Reported Tylenol (Acetaminophen) 325 Mg Tablet 650 Mg PO Q6HRS PRN 02/23/18 Reported Atorvastatin Calcium 20 Mg Tablet 1 Tab PO HS 02/23/18 Reported Acidophilus-Pectin Capsule (Lactobacillus Acidophilus/Pect) 1 Each Capsule 1 Each PO BIDWMEALS 02/23/18 Reported Omeprazole 40 Mg Capsule.dr 1 Cap PO QHS 02/23/18 Reported Vitamin D2 (Ergocalciferol (Vitamin D2)) 50,000 Unit Capsule 1 Cap PO QSA 02/16/18 Reported Zolpidem Tartrate 5 Mg Tablet 5 Mg PO PRN QHS PRN 02/16/18 Reported Simvastatin 40 Mg Tablet 1 Tab PO QHS 02/16/18 Reported Oxybutynin Chloride 5 Mg Tablet 1 Tab PO BID 02/16/18 Reported Omeprazole 20 Mg Capsule.dr 1 Cap PO HS 02/16/18 Reported Warfarin Sodium 5 Mg Tablet 1 Tab PO DAILY 03/07/16 Reported Furosemide 40 Mg Tablet 40 Mg PO PRN DAILY PRN 08/09/15 Reported Trazodone Hcl 50 Mg Tablet 50 Mg PO HS 08/09/15 Reported Amlodipine Besylate 5 Mg Tablet 5 Mg PO DAILY 08/09/15 Reported Meloxicam 7.5 Mg Tablet 7.5 Mg PO DAILY 08/09/15 Reported Atenolol 100 Mg Tablet 100 Mg PO DAILY 08/09/15 Reported Diovan (Valsartan) 320 Mg Tablet 320 Mg PO DAILY 08/09/[address] 1. No CT evidence of central pulmonary emboli, although delineation of the basilar pulmonary arteries is compromised by patient history motion artifact. 2. 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 3. Calcific plaquing of the aorta and coronary arteries 4. Mediastinal lymph nodes of borderline size. 5. Mild tree-in-bud opacities in the right middle lobe, likely on an inflammatory basis. 6. Small left breast nodule. Diagnostic mammography is suggested, if not already performed elsewhere. echo The left ventricle is normal size. The left ventricular systolic function is normal and the ejection fraction is within normal range. The Ejection Fraction is 50-55%. There is mild to moderate concentric left ventricular hypertrophy. Normal appearance of a prosthetic aortic valve. There are normal prosthetic aortic valve gradients. Doppler and Color Flow revealed trace mitral valve regurgitation. Doppler and Color Flow revealed trace tricuspid regurgitation. Impression . IMPRESSION: 1. Acute hypoxic and hypercapnic respiratory failure, likely secondary to acute exacerbation of chronic obstructive pulmonary disease and triggered by lower respiratory tract infection. 2. Low-grade fever, resolved. Possible acute bronchitis versus mild right upper lobe pneumonia. 3. D-dimer mildly elevated. cta, no pe 4. Mild renal insufficiency. 5. Clinically unlikely congestive heart failure. 6. allergic rhinitis Plan . OK TO TRANSFER PREET BRIDGES MD Sep 23, 2018 08:49
[2018-09-23] MEDS: CALCIUM CARBONATE 500 MG TAB.CHEW PO SCH (09:40)
[2018-09-23] MEDS: DOXYCYCLINE HYCLATE 100 MG TABLET PO SCH (09:40)
[2018-09-23] MEDS: OXYBUTYNIN CHLORIDE 5 MG TABLET PO SCH (09:43)
[2018-09-23] MEDS: amLODIPine BESYLATE 5 MG TABLET PO SCH (09:43)
[2018-09-23] MEDS: predniSONE 20 MG TABLET PO SCH (09:44)
[2018-09-23] MEDS: ASPIRIN ENTERIC COATED 81 MG TABLET.DR. PO SCH (09:44)
[2018-09-23] MEDS: FLUTICASONE 50MCG/NASAL SPRAY 16GM BOTTLE. NS SCH (09:45)
[2018-09-23] MEDS: LOSARTAN POTASSIUM 50 MG TABLET. PO SCH (09:45)
[2018-09-23] MEDS: POLYETHYLENE GLYCOL 3350 17 GM PACKET. PO SCH (09:46)
[2018-09-23] MEDS: guaiFENesin DM 200MG/20MG 10 ML SYRUP PO PRN (09:46)
--- NOTE | 2018-09-23 10:44 | PDOC ---
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 CHF, acute diastolic failure, better with IV lasix, will continue accelerated hypertension hypercarbia, poor volume breaths, likely COPD, nebs prior CVA, some residual weakness, some early vascular dementia History of Present Illness History of Present Illness feels improved very weak no cough no sputum MILD wheeze today Vitals Vitals Vital Signs Date Time Temp Pulse Resp B/P (MAP) Pulse Ox O2 Delivery O2 Flow Rate FiO2 09/23/18 09:45 67 137/60 09/23/18 07:00 98.4 20 98 Nasal Cannula 3.0 98.4 Physical Exam General: Alert, Oriented X3, Cooperative, No acute distress Heart: Regular rate (SR), Normal S1, Normal S2, Other (3/6 systolic murmur to ELLIE border) Lungs: Wheezing, Other (limited volume) Abdomen: Soft, No tenderness Extremities: No cyanosis, No edema Skin: No breakdown, No significant lesion Labs LABS Laboratory Tests Test 09/23/18 04:30 White Blood Count 6.9 x10^3/uL (4.0-11.0) Red Blood Count 4.19 x10^6/uL (3.50-5.40) Hemoglobin 12.2 g/dL (12.0-15.5) Hematocrit 37.0 % (36.0-47.0) Mean Corpuscular Volume 88 fL (79-100) Mean Corpuscular Hemoglobin 29 pg (25-35) Mean Corpuscular Hemoglobin Concent 33 g/dL (31-37) Red Cell Distribution Width 14.7 % (11.5-14.5) Platelet Count 321 x10^3/uL (140-400) Neutrophils (%) (Auto) 73 % (31-73) Lymphocytes (%) (Auto) 16 % (24-48) Monocytes (%) (Auto) 12 % (0-9) Eosinophils (%) (Auto) 0 % (0-3) Basophils (%) (Auto) 0 % (0-3) Neutrophils # (Auto) 5.0 x10^3uL (1.8-7.7) Lymphocytes # (Auto) 1.1 x10^3/uL (1.0-4.8) Monocytes # (Auto) 0.8 x10^3/uL (0.0-1.1) Eosinophils # (Auto) 0.0 x10^3/uL (0.0-0.7) Basophils # (Auto) 0.0 x10^3/uL (0.0-0.2) Sodium Level 143 mmol/L (136-145) Potassium Level 4.1 mmol/L (3.5-5.1) Chloride Level 102 mmol/L (98-107) Carbon Dioxide Level 35 mmol/L (21-32) Anion Gap 6 (6-14) Blood Urea Nitrogen 42 mg/dL (7-20) Creatinine 0.9 mg/dL (0.6-1.0) Estimated GFR (Cockcroft-Gault) 59.4 BUN/Creatinine Ratio 47 (6-20) Glucose Level 156 mg/dL (70-99) Calcium Level 9.3 mg/dL (8.5-10.1) Total Bilirubin 0.2 mg/dL (0.2-1.0) Aspartate Amino Transf (AST/SGOT) 16 U/L (15-37) Alanine Aminotransferase (ALT/SGPT) 20 U/L (14-59) Alkaline Phosphatase 57 U/L (46-116) Total Protein 6.6 g/dL (6.4-8.2) Albumin 3.0 g/dL (3.4-5.0) Albumin/Globulin Ratio 0.8 (1.0-1.7) Assessment and Plan Assessmemt and Plan Problems Medical Problems: (1) CHF (congestive heart failure) Status: Acute (2) Hypertensive urgency Status: Acute (3) Hypoxia Status: Acute Comment Review of Relevant I have reviewed the following items junie (where applicable) has been applied. Labs Laboratory Tests Test 09/23/18 04:30 White Blood Count 6.9 x10^3/uL (4.0-11.0) Red Blood Count 4.19 x10^6/uL (3.50-5.40) Hemoglobin 12.2 g/dL (12.0-15.5) Hematocrit 37.0 % (36.0-47.0) Mean Corpuscular Volume 88 fL (79-100) Mean Corpuscular Hemoglobin 29 pg (25-35) Mean Corpuscular Hemoglobin Concent 33 g/dL (31-37) Red Cell Distribution Width 14.7 % (11.5-14.5) Platelet Count 321 x10^3/uL (140-400) Neutrophils (%) (Auto) 73 % (31-73) Lymphocytes (%) (Auto) 16 % (24-48) Monocytes (%) (Auto) 12 % (0-9) Eosinophils (%) (Auto) 0 % (0-3) Basophils (%) (Auto) 0 % (0-3) Neutrophils # (Auto) 5.0 x10^3uL (1.8-7.7) Lymphocytes # (Auto) 1.1 x10^3/uL (1.0-4.8) Monocytes # (Auto) 0.8 x10^3/uL (0.0-1.1) Eosinophils # (Auto) 0.0 x10^3/uL (0.0-0.7) Basophils # (Auto) 0.0 x10^3/uL (0.0-0.2) Sodium Level 143 mmol/L (136-145) Potassium Level 4.1 mmol/L (3.5-5.1) Chloride Level 102 mmol/L (98-107) Carbon Dioxide Level 35 mmol/L (21-32) Anion Gap 6 (6-14) Blood Urea Nitrogen 42 mg/dL (7-20) Creatinine 0.9 mg/dL (0.6-1.0) Estimated GFR (Cockcroft-Gault) 59.4 BUN/Creatinine Ratio 47 (6-20) Glucose Level 156 mg/dL (70-99) Calcium Level 9.3 mg/dL (8.5-10.1) Total Bilirubin 0.2 mg/dL (0.2-1.0) Aspartate Amino Transf (AST/SGOT) 16 U/L (15-37) Alanine Aminotransferase (ALT/SGPT) 20 U/L (14-59) Alkaline Phosphatase 57 U/L (46-116) Total Protein 6.6 g/dL (6.4-8.2) Albumin 3.0 g/dL (3.4-5.0) Albumin/Globulin Ratio 0.8 (1.0-1.7) Laboratory Tests Test 09/23/18 04:30 White Blood Count 6.9 x10^3/uL (4.0-11.0) Red Blood Count 4.19 x10^6/uL (3.50-5.40) Hemoglobin 12.2 g/dL (12.0-15.5) Hematocrit 37.0 % (36.0-47.0) Mean Corpuscular Volume 88 fL (79-100) Mean Corpuscular Hemoglobin 29 pg (25-35) Mean Corpuscular Hemoglobin Concent 33 g/dL (31-37) Red Cell Distribution Width 14.7 % (11.5-14.5) Platelet Count 321 x10^3/uL (140-400) Neutrophils (%) (Auto) 73 % (31-73) Lymphocytes (%) (Auto) 16 % (24-48) Monocytes (%) (Auto) 12 % (0-9) Eosinophils (%) (Auto) 0 % (0-3) Basophils (%) (Auto) 0 % (0-3) Neutrophils # (Auto) 5.0 x10^3uL (1.8-7.7) Lymphocytes # (Auto) 1.1 x10^3/uL (1.0-4.8) Monocytes # (Auto) 0.8 x10^3/uL (0.0-1.1) Eosinophils # (Auto) 0.0 x10^3/uL (0.0-0.7) Basophils # (Auto) 0.0 x10^3/uL (0.0-0.2) Sodium Level 143 mmol/L (136-145) Potassium Level 4.1 mmol/L (3.5-5.1) Chloride Level 102 mmol/L (98-107) Carbon Dioxide Level 35 mmol/L (21-32) Anion Gap 6 (6-14) Blood Urea Nitrogen 42 mg/dL (7-20) Creatinine 0.9 mg/dL (0.6-1.0) Estimated GFR (Cockcroft-Gault) 59.4 BUN/Creatinine Ratio 47 (6-20) Glucose Level 156 mg/dL (70-99) Calcium Level 9.3 mg/dL (8.5-10.1) Total Bilirubin 0.2 mg/dL (0.2-1.0) Aspartate Amino Transf (AST/SGOT) 16 U/L (15-37) Alanine Aminotransferase (ALT/SGPT) 20 U/L (14-59) Alkaline Phosphatase 57 U/L (46-116) Total Protein 6.6 g/dL (6.4-8.2) Albumin 3.0 g/dL (3.4-5.0) Albumin/Globulin Ratio 0.8 (1.0-1.7) Microbiology 09/18/18 Blood Culture - Preliminary, Resulted NO GROWTH AFTER 4 DAYS Medications Current Medications Albuterol/ Ipratropium (Duoneb) 3 ml 1X ONCE NEB Last administered on at 18:57; Start 09/18/18 at 18:45; Stop 09/18/18 at 18:51; Status DC Labetalol HCl (Normodyne Iv Push) 20 mg 1X ONCE IVP Last administered on at 19:00; Start 09/18/18 at 19:00; Stop 09/18/18 at 19:01; Status DC Furosemide (Lasix) 40 mg 1X ONCE IVP Last administered on 09/18/18at 20:45; Start 09/18/18 at 20:45; Stop 09/18/18 at 20:46; Status DC Albuterol/ Ipratropium (Duoneb) 3 ml Q4HRS W/A NEB Last administered on at 06:00; Start 09/18/18 at 22:00 Budesonide (Pulmicort) 0.5 mg RTBID NEB Last administered on 09/23/18at 06:00; Start 09/19/18 at 08:00 Acetaminophen (Tylenol) 650 mg PRN Q6HRS PRN PO MILD PAIN / TEMP; Start at 21:15 Amlodipine Besylate (Norvasc) 5 mg DAILY PO Last administered on 09/23/18at 09: 43; Start 09/19/18 at 09:00 Atorvastatin Calcium (Lipitor) 20 mg HS PO ; Start 09/18/18 at 22:00; Stop 09/20 at 14:47; Status DC Bisacodyl (Dulcolax Tab) 5 mg PRN DAILY PRN PO CONSTIPATION 2ND CHOICE; Start 09/18/18 at 21:15 Calcium Carbonate/ Glycine (Tums) 500 mg BIDWMEALS PO Last administered on 09/23at 09:40; Start 09/19/18 at 08:00 Docusate Sodium (Colace) 100 mg PRN BID PRN PO CONSTIPATION 1ST CHOICE Last administered on 09/22/18 09:34; Start 09/18/18 at 21:15 Oxybutynin Chloride (Ditropan) 5 mg BID PO Last administered on 09/23/18 09:43 ; Start 09/18/18 at 22:00 Senna/Docusate Sodium (Senna Plus) 2 tab QHS PO Last administered on 09/21/18 21:01; Start 09/19/18 at 21:00 Trazodone HCl (Desyrel) 50 mg HS PO Last administered on 09/22/18 21:20; Start 09/19/18 at 21:00 Zolpidem Tartrate (Ambien) 5 mg PRN QHS PRN PO INSOMNIA; Start 09/18/18 at 21: 15 Atenolol (Tenormin) 100 mg DAILY PO ; Start 09/19/18 at 09:00; Stop 09/19/18 at 10:27; Status DC Lactobacillus Rhamnosus (Culturelle) 1 cap BIDWMEALS PO Last administered on 18:40; Start 09/19/18 at 08:00 Losartan Potassium (Cozaar) 100 mg DAILY PO Last administered on 09/23/18 09: 45; Start 09/19/18 at 09:00 Al Hydroxide/Mg Hydroxide (Mylanta Plus Xs) 30 ml PRN Q3HRS PRN PO stomach upset Last administered on 09/19/18 09:56; Start 09/18/18 at 21:15 Pantoprazole Sodium (Protonix) 40 mg QHS PO Last administered on 09/22/18 21: 20; Start 09/18/18 at 22:00 Polyethylene Glycol (miraLAX PACKET) 17 gm DAILY PO Last administered on 09:46; Start 09/19/18 at 09:00 Simvastatin (Zocor) 40 mg QHS PO ; Start 09/19/18 at 21:00; Stop 09/19/18 at 21: 00; Status DC Furosemide (Lasix) 40 mg DAILY IVP Last administered on 09/19/18 09:56; Start 09/19/18 at 09:00; Stop 09/19/18 at 10:32; Status DC Labetalol HCl (Normodyne Iv Push) 20 mg PRN Q2HR PRN IVP HYPERTENSION, SEE COMMENTS Last administered on 09/22/18at 07:51; Start 09/18/18 at 23:30 Albuterol/ Ipratropium (Duoneb) 3 ml 1X ONCE NEB ; Start 09/19/18 at 00:45; Stop 09/19/18 at 00:46; Status DC Albuterol/ Ipratropium (Duoneb) 3 ml 1X ONCE NEB Last administered on at 01:18; Start 09/19/18 at 01:15; Stop 09/19/18 at 01:16; Status DC Nitroglycerin (Nitro-Bid Oint) 1 inch 1X ONCE TP Last administered on 01:36; Start 09/19/18 at 01:15; Stop 09/19/18 at 01:16; Status DC Lorazepam (Ativan) 0.5 mg PRN Q4HRS PRN IV ANXIETY / AGITATION Last administered on 09/19/18at 01:37; Start 09/19/18 at 01:15 Potassium Chloride (Klor-Con) 40 meq 1X ONCE PO Last administered on 09:55; Start 09/19/18 at 07:00; Stop 09/19/18 at 07:01; Status DC Ceftriaxone Sodium (Rocephin) 1 gm Q24H IVP Last administered on 09/22/18at 11: 15; Start 09/19/18 at 11:00 Doxycycline Hyclate (Vibra-Tab) 100 mg BID PO Last administered on 09/23/18at 09 :40; Start 09/19/18 at 21:00 Doxycycline Hyclate (Vibra-Tab) 100 mg 1X ONCE PO Last administered on 13:18; Start 09/19/18 at 10:30; Stop 09/19/18 at 10:31; Status DC Methylprednisolone Sodium Succinate (SOLU-Medrol 40MG VIAL) 40 mg 1X ONCE IV Last administered on 09/19/18 13:18; Start 09/19/18 at 10:30; Stop 09/19/18 at 10:31; Status DC Prednisone (Prednisone) 40 mg DAILY PO Last administered on 09/23/18at 09:44; Start 09/20/18 at 14:00 Sodium Chloride 500 ml @ 500 mls/hr 1X ONCE IV Last administered on at 10:38; Start 09/19/18 at 10:45; Stop 09/19/18 at 11:44; Status DC Iohexol (Omnipaque 350 Mg/ml) 90 ml 1X ONCE IV ; Start 09/19/18 at 10:45; Stop 09/19/18 at 10:46; Status DC Info (CONTRAST GIVEN -- Rx MONITORING) 1 each PRN DAILY PRN MC SEE COMMENTS; Start 09/19/18 at 10:45; Stop 09/21/18 at 10:44; Status DC Atorvastatin Calcium (Lipitor) 40 mg QHS PO Last administered on 09/22/18at 21: 21; Start 09/19/18 at 21:00 Aspirin (Ecotrin) 81 mg DAILYWBKFT PO Last administered on 09/23/18at 09:44; Start 09/19/18 at 15:00 Guaifenesin (Robitussin Dm) 10 ml PRN Q6HRS PRN PO COUGH Last administered on at 09:46; Start 09/20/18 at 09:30 Fluticasone Propionate (Flonase) 2 spray DAILY NS Last administered on at 09:45; Start 09/20/18 at 15:30 Active Scripts Active Reported Losartan Potassium 100 Mg Tablet 100 Mg PO DAILY Tums (Calcium Carbonate) 200 Mg Tab.chew 500 Mg PO BIDWMEALS Tums (Calcium Carbonate) 300 Mg Tab.chew 300 Mg PO Miralax (Polyethylene Glycol 3350) 17 Gm Powd.pack 1 Packet PO DAILY Senna Plus Tablet (Sennosides/Docusate Sodium) 1 Each Tablet 2 Each PO QHS Women's Laxative (Bisacodyl) 5 Mg Tablet 4 Tab PO UD Dulcolax (Bisacodyl) 5 Mg Tablet.dr 5 Mg PO PRN DAILY PRN Dulcolax (Bisacodyl) 5 Mg Tablet.dr 4 Tab PO ONCE Mintox Plus Tablet Chewable (Mag Hydrox/Al Hydrox/Simeth) 1 Each Tab.chew 2 Each PO Q3HRS PRN Docusate Sodium 100 Mg Capsule 1 Cap PO BID PRN Tylenol (Acetaminophen) 325 Mg Tablet 650 Mg PO Q6HRS PRN Atorvastatin Calcium 20 Mg Tablet 1 Tab PO HS Acidophilus-Pectin Capsule (Lactobacillus Acidophilus/Pect) 1 Each Capsule 1 Each PO BIDWMEALS Omeprazole 40 Mg Capsule.dr 1 Cap PO QHS Vitamin D2 (Ergocalciferol (Vitamin D2)) 50,000 Unit Capsule 1 Cap PO QSA Zolpidem Tartrate 5 Mg Tablet 5 Mg PO PRN QHS PRN Simvastatin 40 Mg Tablet 1 Tab PO QHS Oxybutynin Chloride 5 Mg Tablet 1 Tab PO BID Omeprazole 20 Mg Capsule.dr 1 Cap PO HS Warfarin Sodium 5 Mg Tablet 1 Tab PO DAILY Furosemide 40 Mg Tablet 40 Mg PO PRN DAILY PRN Trazodone Hcl 50 Mg Tablet 50 Mg PO HS Amlodipine Besylate 5 Mg Tablet 5 Mg PO DAILY Meloxicam 7.5 Mg Tablet 7.5 Mg PO DAILY Atenolol 100 Mg Tablet 100 Mg PO DAILY Diovan (Valsartan) 320 Mg Tablet 320 Mg PO DAILY Vitals/I & O Vital Sign - Last 24 Hours 09/22/18 09/22/18 09/22/18 09/22/18 11:16 11:16 11:35 11:42 Temp 97.6 97.6 Pulse 68 65 65 Resp 18 B/P (MAP) 149/65 149/65 149/65 (93) Pulse Ox 98 O2 Delivery Nasal Cannula Nasal Cannula O2 Flow Rate 3.0 1.0 09/22/18 09/22/18 09/22/18 09/22/18 14:42 15:56 19:40 20:00 Temp 97.6 98.2 97.6 98.2 Pulse 69 64 Resp 18 22 B/P (MAP) 124/58 (80) 127/57 (80) Pulse Ox 96 95 96 O2 Delivery Nasal Cannula Nasal Cannula Nasal Cannula Nasal Cannula O2 Flow Rate 3.0 1.0 3.0 1.0 09/22/18 09/22/18 09/23/18 09/23/18 20:17 23:10 03:35 06:02 Temp 98.4 98.1 98.4 98.1 Pulse 68 66 Resp 22 22 B/P (MAP) 142/65 (90) 161/71 (101) Pulse Ox 99 96 92 89 O2 Delivery Nasal Cannula Nasal Cannula Room Air O2 Flow Rate 1.0 3.0 1.0 09/23/18 09/23/1819 07:00 09:43 09:45 Temp 98.4 98.4 Pulse 63 71 67 Resp 20 B/P (MAP) 174/73 (106) 137/60 137/60 Pulse Ox 98 O2 Delivery Nasal Cannula O2 Flow Rate 3.0 Intake and Output 09/22/18 09/22/18 09/23/18 15:01 23:01 07:01 Intake Total 0 ml 200 ml 300 ml Balance 0 ml 200 ml 300 ml Nutrition Consultation Dietary Evaluation: Recommendations by RD: Increase Calorie Intake, Protein supplementation Comments: Will liberalize diet to regular to promote PO intake Will add Ensure w/breakfast, encourage to request prn Expected Outcomes/Goals: PO intake to meet >75% est needs Malnutrition Findings: Food and Nutrition Intake (Sev: <50% est energy req 5days Weight Status: Appropriate TINO VAUGHN MD Sep 23, 2018 10:44
[2018-09-23 11:00] VITALS: BP 144/69
[2018-09-23] MEDS: LACTOBACILLUS RHAMNOSUS GG 1 CAPSULE. PO SCH (11:58)
[2018-09-23] MEDS: cefTRIAXone IV Push 1 GM VIAL. IVP SCH (11:59)
--- NOTE | 2018-09-23 13:50 | NUR ---
SS following up with discharge planning. SS received notification that pt has been accepted at [facility]. Pt's RN and physician notified.
--- NOTE | 2018-09-23 14:37 | PDOC3 ---
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 CHF, acute diastolic failure, better with IV lasix, will continue accelerated hypertension hypercarbia, poor volume breaths, likely COPD, nebs prior CVA, some residual weakness, some early vascular dementia History of Present Illness History of Present Illness feels improved very weak no cough no sputum NO wheeze today Vitals Vitals Vital Signs Date Time Temp Pulse Resp B/P (MAP) Pulse Ox O2 Delivery O2 Flow Rate FiO2 09/23/18 09:45 67 137/60 09/23/18 07:00 98.4 20 98 Nasal Cannula 3.0 98.4 Physical Exam General: Alert, Oriented X3, Cooperative, No acute distress Heart: Regular rate (SR), Normal S1, Normal S2, Other (3/6 systolic murmur to ELLIE border) Lungs: Wheezing, Other (limited volume) Abdomen: Soft, No tenderness Extremities: No cyanosis, No edema Skin: No breakdown, No significant lesion FINAL DIAGNOSIS Problems Medical Problems: (1) CHF (congestive heart failure) Status: Acute (2) Hypertensive urgency Status: Acute (3) Hypoxia Status: Acute Brief Hospital Course Ms. Martins is a 88 old [sex] who presented with [HTN, SOA ] CONDITION AT DISCHARGE: Improved Discharge Medications Current Medications Albuterol/ Ipratropium (Duoneb) 3 ml 1X ONCE NEB Last administered on at 18:57; Start 09/18/18 at 18:45; Stop 09/18/18 at 18:51; Status DC Labetalol HCl (Normodyne Iv Push) 20 mg 1X ONCE IVP Last administered on at 19:00; Start 09/18/18 at 19:00; Stop 09/18/18 at 19:01; Status DC Furosemide (Lasix) 40 mg 1X ONCE IVP Last administered on 09/18/18at 20:45; Start 09/18/18 at 20:45; Stop 09/18/18 at 20:46; Status DC Albuterol/ Ipratropium (Duoneb) 3 ml Q4HRS W/A NEB Last administered on 11:29; Start 09/18/18 at 22:00 Budesonide (Pulmicort) 0.5 mg RTBID NEB Last administered on 09/23/18 06:00; Start 09/19/18 at 08:00 Acetaminophen (Tylenol) 650 mg PRN Q6HRS PRN PO MILD PAIN / TEMP; Start at 21:15 Amlodipine Besylate (Norvasc) 5 mg DAILY PO Last administered on 09/23/18 09: 43; Start 09/19/18 at 09:00 Atorvastatin Calcium (Lipitor) 20 mg HS PO ; Start 09/18/18 at 22:00; Stop 09/20 at 14:47; Status DC Bisacodyl (Dulcolax Tab) 5 mg PRN DAILY PRN PO CONSTIPATION 2ND CHOICE; Start 09/18/18 at 21:15 Calcium Carbonate/ Glycine (Tums) 500 mg BIDWMEALS PO Last administered on 09/23 09:40; Start 09/19/18 at 08:00 Docusate Sodium (Colace) 100 mg PRN BID PRN PO CONSTIPATION 1ST CHOICE Last administered on 09/22/18at 09:34; Start 09/18/18 at 21:15 Oxybutynin Chloride (Ditropan) 5 mg BID PO Last administered on 09/23/18 09:43 ; Start 09/18/18 at 22:00 Senna/Docusate Sodium (Senna Plus) 2 tab QHS PO Last administered on 09/21/18at 21:01; Start 09/19/18 at 21:00 Trazodone HCl (Desyrel) 50 mg HS PO Last administered on 09/22/18at 21:20; Start 09/19/18 at 21:00 Zolpidem Tartrate (Ambien) 5 mg PRN QHS PRN PO INSOMNIA; Start 09/18/18 at 21: 15 Atenolol (Tenormin) 100 mg DAILY PO ; Start 09/19/18 at 09:00; Stop 09/19/18 at 10:27; Status DC Lactobacillus Rhamnosus (Culturelle) 1 cap BIDWMEALS PO Last administered on 11:58; Start 09/19/18 at 08:00 Losartan Potassium (Cozaar) 100 mg DAILY PO Last administered on 09/23/18 09: 45; Start 09/19/18 at 09:00 Al Hydroxide/Mg Hydroxide (Mylanta Plus Xs) 30 ml PRN Q3HRS PRN PO stomach upset Last administered on 09/19/18 09:56; Start 09/18/18 at 21:15 Pantoprazole Sodium (Protonix) 40 mg QHS PO Last administered on 09/22/18 21: 20; Start 09/18/18 at 22:00 Polyethylene Glycol (miraLAX PACKET) 17 gm DAILY PO Last administered on 09:46; Start 09/19/18 at 09:00 Simvastatin (Zocor) 40 mg QHS PO ; Start 09/19/18 at 21:00; Stop 09/19/18 at 21: 00; Status DC Furosemide (Lasix) 40 mg DAILY IVP Last administered on 09/19/18 09:56; Start 09/19/18 at 09:00; Stop 09/19/18 at 10:32; Status DC Labetalol HCl (Normodyne Iv Push) 20 mg PRN Q2HR PRN IVP HYPERTENSION, SEE COMMENTS Last administered on 09/22/18 07:51; Start 09/18/18 at 23:30 Albuterol/ Ipratropium (Duoneb) 3 ml 1X ONCE NEB ; Start 09/19/18 at 00:45; Stop 09/19/18 at 00:46; Status DC Albuterol/ Ipratropium (Duoneb) 3 ml 1X ONCE NEB Last administered on 01:18; Start 09/19/18 at 01:15; Stop 09/19/18 at 01:16; Status DC Nitroglycerin (Nitro-Bid Oint) 1 inch 1X ONCE TP Last administered on 01:36; Start 09/19/18 at 01:15; Stop 09/19/18 at 01:16; Status DC Lorazepam (Ativan) 0.5 mg PRN Q4HRS PRN IV ANXIETY / AGITATION Last administered on 09/19/18 01:37; Start 09/19/18 at 01:15 Potassium Chloride (Klor-Con) 40 meq 1X ONCE PO Last administered on 09:55; Start 09/19/18 at 07:00; Stop 09/19/18 at 07:01; Status DC Ceftriaxone Sodium (Rocephin) 1 gm Q24H IVP Last administered on 09/23/18 11: 59; Start 09/19/18 at 11:00 Doxycycline Hyclate (Vibra-Tab) 100 mg BID PO Last administered on 09/23/18 09 :40; Start 09/19/18 at 21:00 Doxycycline Hyclate (Vibra-Tab) 100 mg 1X ONCE PO Last administered on 13:18; Start 09/19/18 at 10:30; Stop 09/19/18 at 10:31; Status DC Methylprednisolone Sodium Succinate (SOLU-Medrol 40MG VIAL) 40 mg 1X ONCE IV Last administered on 09/19/18 13:18; Start 09/19/18 at 10:30; Stop 09/19/18 at 10:31; Status DC Prednisone (Prednisone) 40 mg DAILY PO Last administered on 09/23/18 09:44; Start 09/20/18 at 14:00 Sodium Chloride 500 ml @ 500 mls/hr 1X ONCE IV Last administered on at 10:38; Start 09/19/18 at 10:45; Stop 09/19/18 at 11:44; Status DC Iohexol (Omnipaque 350 Mg/ml) 90 ml 1X ONCE IV ; Start 09/19/18 at 10:45; Stop 09/19/18 at 10:46; Status DC Info (CONTRAST GIVEN -- Rx MONITORING) 1 each PRN DAILY PRN MC SEE COMMENTS; Start 09/19/18 at 10:45; Stop 09/21/18 at 10:44; Status DC Atorvastatin Calcium (Lipitor) 40 mg QHS PO Last administered on 09/22/18 21: 21; Start 09/19/18 at 21:00 Aspirin (Ecotrin) 81 mg DAILYWBKFT PO Last administered on 09/23/18 09:44; Start 09/19/18 at 15:00 Guaifenesin (Robitussin Dm) 10 ml PRN Q6HRS PRN PO COUGH Last administered on 1 /29/19at 09:46; Start 09/20/18 at 09:30 Fluticasone Propionate (Flonase) 2 spray DAILY NS Last administered on at 09:45; Start 09/20/18 at 15:30 Active Scripts Active Reported Losartan Potassium 100 Mg Tablet 100 Mg PO DAILY Tums (Calcium Carbonate) 200 Mg Tab.chew 500 Mg PO BIDWMEALS Tums (Calcium Carbonate) 300 Mg Tab.chew 300 Mg PO Miralax (Polyethylene Glycol 3350) 17 Gm Powd.pack 1 Packet PO DAILY Senna Plus Tablet (Sennosides/Docusate Sodium) 1 Each Tablet 2 Each PO QHS Women's Laxative (Bisacodyl) 5 Mg Tablet 4 Tab PO UD Dulcolax (Bisacodyl) 5 Mg Tablet.dr 5 Mg PO PRN DAILY PRN Dulcolax (Bisacodyl) 5 Mg Tablet.dr 4 Tab PO ONCE Mintox Plus Tablet Chewable (Mag Hydrox/Al Hydrox/Simeth) 1 Each Tab.chew 2 Each PO Q3HRS PRN Docusate Sodium 100 Mg Capsule 1 Cap PO BID PRN Tylenol (Acetaminophen) 325 Mg Tablet 650 Mg PO Q6HRS PRN Atorvastatin Calcium 20 Mg Tablet 1 Tab PO HS Acidophilus-Pectin Capsule (Lactobacillus Acidophilus/Pect) 1 Each Capsule 1 Each PO BIDWMEALS Omeprazole 40 Mg Capsule. 1 Cap PO QHS Vitamin D2 (Ergocalciferol (Vitamin D2)) 50,000 Unit Capsule 1 Cap PO QSA Zolpidem Tartrate 5 Mg Tablet 5 Mg PO PRN QHS PRN Simvastatin 40 Mg Tablet 1 Tab PO QHS Oxybutynin Chloride 5 Mg Tablet 1 Tab PO BID Omeprazole 20 Mg Capsule. 1 Cap PO HS Warfarin Sodium 5 Mg Tablet 1 Tab PO DAILY Furosemide 40 Mg Tablet 40 Mg PO PRN DAILY PRN Trazodone Hcl 50 Mg Tablet 50 Mg PO HS Amlodipine Besylate 5 Mg Tablet 5 Mg PO DAILY Meloxicam 7.5 Mg Tablet 7.5 Mg PO DAILY Atenolol 100 Mg Tablet 100 Mg PO DAILY Diovan (Valsartan) 320 Mg Tablet 320 Mg PO DAILY Vital Signs Vital Signs Date Time Temp Pulse Resp B/P (MAP) Pulse Ox O2 Delivery O2 Flow Rate FiO2 09/23/18 11:31 Room Air 1.5 09/23/18 09:45 67 137/60 09/23/18 07:00 98.4 20 98 98.4 Labs Laboratory Tests Test 09/23/18 04:30 White Blood Count 6.9 x10^3/uL (4.0-11.0) Red Blood Count 4.19 x10^6/uL (3.50-5.40) Hemoglobin 12.2 g/dL (12.0-15.5) Hematocrit 37.0 % (36.0-47.0) Mean Corpuscular Volume 88 fL (79-100) Mean Corpuscular Hemoglobin 29 pg (25-35) Mean Corpuscular Hemoglobin Concent 33 g/dL (31-37) Red Cell Distribution Width 14.7 % (11.5-14.5) Platelet Count 321 x10^3/uL (140-400) Neutrophils (%) (Auto) 73 % (31-73) Lymphocytes (%) (Auto) 16 % (24-48) Monocytes (%) (Auto) 12 % (0-9) Eosinophils (%) (Auto) 0 % (0-3) Basophils (%) (Auto) 0 % (0-3) Neutrophils # (Auto) 5.0 x10^3uL (1.8-7.7) Lymphocytes # (Auto) 1.1 x10^3/uL (1.0-4.8) Monocytes # (Auto) 0.8 x10^3/uL (0.0-1.1) Eosinophils # (Auto) 0.0 x10^3/uL (0.0-0.7) Basophils # (Auto) 0.0 x10^3/uL (0.0-0.2) Sodium Level 143 mmol/L (136-145) Potassium Level 4.1 mmol/L (3.5-5.1) Chloride Level 102 mmol/L (98-107) Carbon Dioxide Level 35 mmol/L (21-32) Anion Gap 6 (6-14) Blood Urea Nitrogen 42 mg/dL (7-20) Creatinine 0.9 mg/dL (0.6-1.0) Estimated GFR (Cockcroft-Gault) 59.4 BUN/Creatinine Ratio 47 (6-20) Glucose Level 156 mg/dL (70-99) Calcium Level 9.3 mg/dL (8.5-10.1) Total Bilirubin 0.2 mg/dL (0.2-1.0) Aspartate Amino Transf (AST/SGOT) 16 U/L (15-37) Alanine Aminotransferase (ALT/SGPT) 20 U/L (14-59) Alkaline Phosphatase 57 U/L (46-116) Total Protein 6.6 g/dL (6.4-8.2) Albumin 3.0 g/dL (3.4-5.0) Albumin/Globulin Ratio 0.8 (1.0-1.7) Laboratory Tests Test 09/23/18 04:30 White Blood Count 6.9 x10^3/uL (4.0-11.0) Red Blood Count 4.19 x10^6/uL (3.50-5.40) Hemoglobin 12.2 g/dL (12.0-15.5) Hematocrit 37.0 % (36.0-47.0) Mean Corpuscular Volume 88 fL (79-100) Mean Corpuscular Hemoglobin 29 pg (25-35) Mean Corpuscular Hemoglobin Concent 33 g/dL (31-37) Red Cell Distribution Width 14.7 % (11.5-14.5) Platelet Count 321 x10^3/uL (140-400) Neutrophils (%) (Auto) 73 % (31-73) Lymphocytes (%) (Auto) 16 % (24-48) Monocytes (%) (Auto) 12 % (0-9) Eosinophils (%) (Auto) 0 % (0-3) Basophils (%) (Auto) 0 % (0-3) Neutrophils # (Auto) 5.0 x10^3uL (1.8-7.7) Lymphocytes # (Auto) 1.1 x10^3/uL (1.0-4.8) Monocytes # (Auto) 0.8 x10^3/uL (0.0-1.1) Eosinophils # (Auto) 0.0 x10^3/uL (0.0-0.7) Basophils # (Auto) 0.0 x10^3/uL (0.0-0.2) Sodium Level 143 mmol/L (136-145) Potassium Level 4.1 mmol/L (3.5-5.1) Chloride Level 102 mmol/L (98-107) Carbon Dioxide Level 35 mmol/L (21-32) Anion Gap 6 (6-14) Blood Urea Nitrogen 42 mg/dL (7-20) Creatinine 0.9 mg/dL (0.6-1.0) Estimated GFR (Cockcroft-Gault) 59.4 BUN/Creatinine Ratio 47 (6-20) Glucose Level 156 mg/dL (70-99) Calcium Level 9.3 mg/dL (8.5-10.1) Total Bilirubin 0.2 mg/dL (0.2-1.0) Aspartate Amino Transf (AST/SGOT) 16 U/L (15-37) Alanine Aminotransferase (ALT/SGPT) 20 U/L (14-59) Alkaline Phosphatase 57 U/L (46-116) Total Protein 6.6 g/dL (6.4-8.2) Albumin 3.0 g/dL (3.4-5.0) Albumin/Globulin Ratio 0.8 (1.0-1.7) Allergies Allergies Coded Allergies Type Severity Reaction Last Updated Verified No Known Drug Allergies 08/11/15 No Disposition/Orders: Other (SNF BED) Patient Instructions D/C PLANNING 40 MIN TINO VAUGHN MD Sep 23, 2018 14:37
--- NOTE | 2018-09-23 14:40 | DISCH ---
DISCHARGE DISCHARGE INFORMATION: FINAL DIAGNOSIS Problems Medical Problems: (1) CHF (congestive heart failure) Status: Acute (2) Hypertensive urgency Status: Acute (3) Hypoxia Status: Acute CONDITION ON DISCHARGE: Stable CODE STATUS: Code Status: Full NURSING HOME: SNF STAY <30 DAYS: Yes HOSPICE: HOSPICE: No HOSPICE EVAL & TREAT: No LTAC: ADMIT TO LTAC: No POST DISCHARGE ORDERS: ACTIVITY ORDERS: Other, see below WEIGHT BEARING STATUS: As tolerated DIET AFTER DISCHARGE: Cardiac WOUND/INCISION CARE: May get incision wet, Reinforce dressing PRN CHECKS AFTER DISCHARGE: CHECKS AFTER DISCHARGE: Check blood press - daily TREATMENT/EQUIPMENT ORDERS: ADAPTIVE EQUIPMENT NEEDED: None RESPIRATORY EQUIPMENT NEEDED: Oxygen Physical Therapy For: Evalulation/Treatment Occupational Therapy For: Evaluation/Treatment Speech Language Pathology For: Evaluation/Treatment DISCHARGE MEDICATIONS: Home Meds Reported Medications Losartan Potassium (LOSARTAN POTASSIUM) 100 Mg Tablet, 100 MG PO DAILY, TAB 02/23/18 Calcium Carbonate (TUMS) 200 Mg Tab.chew, 500 MG PO BIDWMEALS, TAB.CHEW 02/23/18 Calcium Carbonate (TUMS) 300 Mg Tab.chew, 300 MG PO, TAB.CHEW 02/23/18 Polyethylene Glycol 3350 (MIRALAX) 17 Gm Powd.pack, 1 PACKET PO DAILY, #30 PACKET 3 Refills 02/23/18 Sennosides/Docusate Sodium (SENNA PLUS TABLET) 1 Each Tablet, 2 EACH PO QHS, TAB 02/23/18 Bisacodyl (WOMEN'S LAXATIVE) 5 Mg Tablet, 4 TAB PO UD, #4 TAB 02/23/18 Bisacodyl (DULCOLAX) 5 Mg Tablet.dr, 5 MG PO PRN DAILY PRN for CONSTIPATION, TAB 0 Refills 02/23/18 Bisacodyl (DULCOLAX) 5 Mg Tablet.dr, 4 TAB PO ONCE, #4 TAB 02/23/18 Mag Hydrox/Al Hydrox/Simeth (MINTOX PLUS TABLET CHEWABLE) 1 Each Tab.chew, 2 EACH PO Q3HRS PRN for stomach upset, TAB.CHEW 02/23/18 Docusate Sodium (DOCUSATE SODIUM) 100 Mg Capsule, 1 CAP PO BID PRN for CONSTIPATION, #30 CAP 02/23/18 Acetaminophen (TYLENOL) 325 Mg Tablet, 650 MG PO Q6HRS PRN for SEE COMMENTS, TAB 02/23/18 Atorvastatin Calcium (ATORVASTATIN CALCIUM) 20 Mg Tablet, 1 TAB PO HS, #30 TAB 5 Refills 02/23/18 Lactobacillus Acidophilus/Pect (Acidophilus-Pectin Capsule) 1 Each Capsule, 1 EACH PO BIDWMEALS, CAP 02/23/18 Omeprazole (OMEPRAZOLE) 40 Mg Capsule.dr, 1 CAP PO QHS, #30 CAP 3 Refills 02/23/18 Ergocalciferol (Vitamin D2) (VITAMIN D2) 50,000 Unit Capsule, 1 CAP PO QSA, #4 CAP 5 Refills 02/16/18 Zolpidem Tartrate (ZOLPIDEM TARTRATE) 5 Mg Tablet, 5 MG PO PRN QHS PRN for INSOMNIA, TAB 0 Refills 02/16/18 Simvastatin (SIMVASTATIN) 40 Mg Tablet, 1 TAB PO QHS, #30 TAB 5 Refills 02/16/18 Oxybutynin Chloride (OXYBUTYNIN CHLORIDE) 5 Mg Tablet, 1 TAB PO BID, #60 TAB 11 Refills 02/16/18 Omeprazole (OMEPRAZOLE) 20 Mg Capsule.dr, 1 CAP PO HS, #30 CAP 5 Refills 02/16/18 Warfarin Sodium (WARFARIN SODIUM) 5 Mg Tablet, 1 TAB PO DAILY, #90 TAB 1 Refill 03/07/16 Furosemide (FUROSEMIDE) 40 Mg Tablet, 40 MG PO PRN DAILY PRN for SEE COMMENTS, TAB 08/09/15 Trazodone Hcl (TRAZODONE HCL) 50 Mg Tablet, 50 MG PO HS, TAB 08/09/15 Amlodipine Besylate (AMLODIPINE BESYLATE) 5 Mg Tablet, 5 MG PO DAILY, TAB 08/09/15 Meloxicam (MELOXICAM) 7.5 Mg Tablet, 7.5 MG PO DAILY, TAB 08/09/15 Atenolol (ATENOLOL) 100 Mg Tablet, 100 MG PO DAILY, TAB 08/09/15 Valsartan (DIOVAN) 320 Mg Tablet, 320 MG PO DAILY, TAB 08/09/15 TINO VAUGHN MD Sep 23, 2018 14:40
[2018-09-23] MEDS ORDERED: BUDE0.5A NEB (14:46)
[2018-09-23] MEDS ORDERED: GUAI5SYR PO (14:46)
[2018-09-23] MEDS ORDERED: IPRA3AMP29 NEB (14:46)
[2018-09-23] MEDS ORDERED: PRED20TA PO (14:46)
[2018-09-23] MEDS ORDERED: DOXY100T PO (14:46)
[2018-09-23] MEDS ORDERED: FLUT16SP NS (14:46)
[2018-09-23 15:00] VITALS: BP 135/63
[2018-09-23] MEDS ORDERED: ATEN25TA PO (15:44)
[2018-09-23] MEDS ORDERED: ASPI-612 PO (15:51)
--- NOTE | 2018-09-23 15:55 | NUR ---
SS following up with discharge planning. Discharge orders received for [facility], ; fax [phone]. SS phoned and faxed discharge orders. SS contacted pt's daughter and notified. Pt choice and rights forms verbally consented to by pt's daughter and placed in chart. Pt will discharge today and go to [facility] at 1700 via transportation scheduled by [facility]. Pt, pt's daughter, and pt's RN notified.
--- NOTE | 2018-09-23 17:13 | NUR ---
Discharge Note: YULISA JAMES [address] [place] [address] Discharge instructions and discharge home medications reviewed with Other facility and a copy given. All questions have been answered and understanding verbalized. The following instructions and handouts were given: discharge packet. Discontinued lines and drains: Peripheral IV intact. Patient discharged to [facility] with transportation via [facility] at 1713. Daughter present at time of discharge.
== END 2018-09-23 17:21 | DRG 291 ==
LOC: ER 18:33 → 2 SOUTH 20:52
PROVIDERS: ADMIT Internal Medicine; ATTEND Internal Medicine
PROC: 5A09357 Assistance with Respiratory Ventilation, Less than 24 Consecutive Hours, Continuous Positive Airway Pressure (ICD-10-PCS; principal; 2018-09-19)
PROC: 5A09357 Assistance with Respiratory Ventilation, Less than 24 Consecutive Hours, Continuous Positive Airway Pressure (ICD-10-PCS; 2018-09-22)
DX: I11.0 Hypertensive heart disease with heart failure (principal); J18.9 Pneumonia, unspecified organism; J96.01 Acute respiratory failure with hypoxia; J96.02 Acute respiratory failure with hypercapnia; I69.354 Hemiplegia and hemiparesis following cerebral infarction affecting left non-dominant side; J44.0 Chronic obstructive pulmonary disease with (acute) lower respiratory infection; J44.1 Chronic obstructive pulmonary disease with (acute) exacerbation; I50.33 Acute on chronic diastolic (congestive) heart failure; E78.00 Pure hypercholesterolemia, unspecified; E78.5 Hyperlipidemia, unspecified; F01.50 Vascular dementia, unspecified severity, without behavioral disturbance, psychotic disturbance, mood disturbance, and anxiety; I16.0 Hypertensive urgency; I25.10 Atherosclerotic heart disease of native coronary artery without angina pectoris; M19.90 Unspecified osteoarthritis, unspecified site; I35.0 Nonrheumatic aortic (valve) stenosis; I27.20 Pulmonary hypertension, unspecified; I48.91 Unspecified atrial fibrillation; J30.9 Allergic rhinitis, unspecified; K21.9 Gastro-esophageal reflux disease without esophagitis; Z82.49 Family history of ischemic heart disease and other diseases of the circulatory system; Z95.2 Presence of prosthetic heart valve; Z95.1 Presence of aortocoronary bypass graft; Z87.440 Personal history of urinary (tract) infections; N28.9 Disorder of kidney and ureter, unspecified
CPT/HCPCS: 36415; 36600; 71045; 71275; 80053; 80061; 81001; 82805; 82962; 83605; 83735; 83880; 84443; 84484; 85007; 85025; 85379; 85610; 87040; 87804; 93005; 93306; 94640; 94660; 94760; 96361; 96374; 96375; J0696; J1940; J2060; J2920; J3490; J7040; J7512; J7620; J7626; 97530; 97535; 99285-25; G0378

== ENCOUNTER → 2018-11-26 | Outpatient (CLI) | payer MEDICARE, OTHER ==
[~2018-11-26] MED LIST changes: +ASPI-612 PO; +ATEN25TA PO; +BUDE0.5A NEB; +DOXY100T PO; +FLUT16SP NS; +GUAI5SYR PO; +IPRA3AMP29 NEB; +PRED20TA PO
--- NOTE | 2018-11-26 12:36 | RAD ---
Carotid ultrasound, 11/26/2018: HISTORY: Carotid stenosis Duplex evaluation of the carotid arteries and neck was performed including grayscale, color-flow and spectral Doppler analysis. There is moderate atherosclerotic plaquing at the right carotid bifurcation. The plaques are partially calcified. There is a velocity acceleration the proximal right internal carotid artery up to 174 cm/s. The end-diastolic velocity at that level is 32 cm/s. The internal carotid to common carotid artery ratio is 2.7. These Doppler findings suggest luminal narrowing in the 50-70 percent diameter range. There is also a moderate velocity acceleration in the right external carotid artery suggesting stenosis at its origin. Similar findings were present on the previous study of 02/17/2018. There is mild to moderate atherosclerotic plaquing at the left carotid bifurcation. The peak systolic velocity in the left internal carotid artery is 83 cm/s with an end-diastolic velocity of 17 cm/s and an internal carotid to common carotid artery ratio 1.2. These Doppler findings suggest narrowing in the 0-50 percent diameter range. On the previous study of 02/17/2018 there was Doppler evidence of stenosis in the left internal carotid and external carotid arteries, not evident on the current exam. Has there been an interval endarterectomy? If not, the differences are presumably on a technical basis. Antegrade flow is present in both vertebral arteries in the neck. IMPRESSION: 1. Moderate atherosclerotic plaquing at the right carotid bifurcation with narrowing of the proximal internal carotid artery in the 50-70 percent diameter range. 2. Moderate stenosis at the right external carotid artery origin. 3. Mild to moderate plaquing at the left carotid bifurcation with underlying luminal narrowing in the 0-50 percent diameter range. Note: Stenosis calculations for CT, MRA and conventional angiography are based upon determination of the distal ICA diameter in accordance with the NASCET methodology. Stenosis calculations for Doppler studies are derived from validated velocity criteria which are known to correlate with NASCET methodology of determining stenosis. Electronically signed by: Eduardo Schroeder MD (11/26/2018 12:33 PM) [facility]
== END | disposition home or self-care (01) ==
LOC: US 11:12
PROVIDERS: ATTEND Registered Nurse Medical-Surgical
DX: I65.23 Occlusion and stenosis of bilateral carotid arteries (principal)
CPT/HCPCS: 93880